=== PATIENT | female | born 1945 | race Caucasian/White ===

== ENCOUNTER 2020-05-02 07:43 | Outpatient (REF) | payer OTHER, SELFPAY ==
[2020-05-02 11:01] LABS: COVID-19 Test Negative (Negative); IDNOW Serial# 55D5AD1C
== END 2020-05-02 07:44 | disposition home or self-care (01) ==
LOC: HO.EMPCOV 07:43
PROVIDERS: PCP Family Medicine; Visit Provider Internal Medicine
DX: Z20.828 Contact with and (suspected) exposure to other viral communicable diseases (principal)
CPT/HCPCS: 87635; C9803

== ENCOUNTER 2020-09-18 07:42 | Outpatient (REF) | payer OTHER, SELFPAY ==
[2020-09-18 08:00] LABS: COVID-19 Test Negative (Negative)
== END 2020-09-18 07:43 | disposition home or self-care (01) ==
LOC: HO.EMPCOV 07:42
PROVIDERS: Visit Provider Internal Medicine
DX: Z20.822 Contact with and (suspected) exposure to COVID-19 (principal)
CPT/HCPCS: 36415; 87635; C9803

== ENCOUNTER 2020-10-23 09:46 | Outpatient (REF) | payer OTHER, SELFPAY ==
[2020-10-25 07:35] LABS: SARS COV2 IgG Negative (Negative)
== END 2020-10-23 09:47 | disposition home or self-care (01) ==
LOC: HO.LAB 09:46
PROVIDERS: PCP Family Medicine; Visit Provider Family Medicine
DX: Z01.84 Encounter for antibody response examination (principal); Z20.822 Contact with and (suspected) exposure to COVID-19
CPT/HCPCS: 36415; 86769

== ENCOUNTER 2020-12-15 08:33 | Outpatient (REF) | payer OTHER, SELFPAY ==
--- NOTE | ~2020-12-15 | MM_ITS ---
EXAMINATION: MM SCREENING DIGITAL BREAST TOMOSYNTHESIS, BILATERAL CLINICAL INFORMATION: Screening. Asymptomatic. The lifetime risk of breast cancer based on the Tyrer-Cuzick Model is 2%. COMPARISON: Mammography: 04/07/2017, 09/21/2014, 01/09/2012 TECHNIQUE: Digital breast tomosynthesis is performed in both the craniocaudal and mediolateral oblique views along with computer-aided detection (CAD). Synthesized 2D images are generated from the tomosynthesis. FINDINGS: There are scattered areas of fibroglandular density (ACR BI-RADS breast composition Category b). There are no significant masses, abnormal calcifications, or other abnormalities. There are scattered bilateral benign coarse rim calcifications. Parenchymal pattern is similar to prior studies. The axilla and skin contours are unremarkable. Mild bilateral nipple retraction is a chronic finding. MM/MM tomosynthesis screening BI IMPRESSION: No mammographic evidence of malignancy. ASSESSMENT: BI-RADS 2: Benign RECOMMENDATION: Routine annual mammography screening. This patient's information was entered into a reminder system with a target due date for their next mammogram.
== END 2020-12-15 08:34 | disposition home or self-care (01) ==
LOC: HO.MAMMO 08:33
PROVIDERS: Visit Provider Family Medicine
DX: Z12.31 Encounter for screening mammogram for malignant neoplasm of breast (principal)
CPT/HCPCS: 77063; 77067

== ENCOUNTER 2020-12-30 09:00 | Outpatient (REF) | payer OTHER, SELFPAY ==
[2020-12-30 10:15] LABS: Alanine Aminotransferase 11 U/L (0-31); Albumin Level 4.1 g/dL (3.5-5.0); Alkaline Phosphatase 85 U/L (39-117); Anion Gap 14 (12-20); Aspartate Amino Transferase 16 U/L (5-31); Bilirubin Total 0.4 mg/dL (0.0-1.0); Blood Urea Nitrogen 28 mg/dL (9-16); Calcium 9.6 mg/dL (8.4-10.2); Carbon Dioxide 30 mmol/L (22-29); Chloride 100 mmol/L (96-108); Cholesterol 260 mg/dL; Estimated Glomerular Filt Rate 39; Glucose Fasting 99 mg/dL (60-99); HDL Cholesterol 65 mg/dL; LDL Cholesterol Calculated 167 mg/dl; Potassium 3.9 mmol/L (3.3-5.1); Sodium 140 mmol/L (135-145); Triglycerides 144 mg/dL
[2020-12-30 10:37] LABS: TSH reflex Free T4 2.56 uIU/mL (0.32-4.0)
== END 2020-12-30 09:01 | disposition home or self-care (01) ==
LOC: HO.LAB 09:00
PROVIDERS: PCP Family Medicine; Visit Provider Family Medicine
DX: Z00.00 Encounter for general adult medical examination without abnormal findings (principal); I10 Essential (primary) hypertension
CPT/HCPCS: 36415; 80053; 80061; 84443

== ENCOUNTER 2021-01-01 13:01 | Outpatient (REF) | payer OTHER, SELFPAY ==
[2021-01-01 14:31] LABS: Creatinine Urine 44.58 mg/dL; Microalbum/Creatinine Ratio Ur 13.4 ug/mg cr
== END 2021-01-01 13:02 | disposition home or self-care (01) ==
LOC: HO.LNP 13:01
PROVIDERS: Visit Provider Family Medicine
DX: I10 Essential (primary) hypertension (principal)
CPT/HCPCS: 82043

== ENCOUNTER 2021-01-26 14:28 | Outpatient (REF) | payer OTHER, SELFPAY ==
--- NOTE | ~2021-01-26 | MM_ITS ---
EXAMINATION: BONE DENSITOMETRY CLINICAL INDICATION: Encounter for screening for osteoporosis. COMPARISON: Previous BD dated 03/17/2019 and baseline BD dated 11/25/2006. TECHNIQUE: Using a [employer] DXA System (software version: 13.1) manufactured by [employer], dual-energy x-ray absorptiometry was performed of the lumbar spine and left hip. The images are of good technical quality. Summary results are attached. FINDINGS: AP SPINE L1-L2 (excluding L3 and L4): The data of L1-L4 has been changed to exclude the L3 and L4 vertebral bodies, because degenerative changes at these levels may cause overestimation of lumbar spine density. Current: BMD 1.004 g/cm2, Z-score 0.7, T-score -1.3, osteopenia, 8.4% increase from previous, 1.3% decrease from baseline (<5% change is not significant). Prior: BMD 0.926 g/cm2. Baseline: BMD 1.017 g/cm2. LEFT FEMUR, NECK: Current: BMD 0.833 g/cm2, Z-score 0.7, T-score -1.5, osteopenia. Prior: BMD 0.850 g/cm2. Baseline: BMD 0.867 g/cm2. LEFT FEMUR, TOTAL: Current: BMD 0.930 g/cm2, Z-score 1.4, T-score -0.6, normal, 4.6% decrease from previous, 5.1% decrease from baseline (<5% change is not significant). Prior: BMD 0.975 g/cm2. Baseline: BMD 0.980 g/cm2. IDENTIFIED RISK FACTORS: Early menopause, secondary osteoporosis, history of fracture (adult). HISTORY OF FRACTURE: Elbow. MEDICATIONS: Vitamin D. MM/XR DEXA axial skeleton IMPRESSION: 1. DIAGNOSIS: Osteopenia based on the lowest T-score value of -1.5 in the femoral neck applying World Health Organization criteria. 2. 10-YEAR FRACTURE RISK PREDICTION, FRAX: Major osteoporotic fracture (clinical spine, forearm, hip or shoulder) 29.1%. Hip fracture 14.9%. 3. Treatment Recommendations: NOF guidelines recommend consideration for treatment in postmenopausal women and men age 50 and older presenting with the following: -A hip or vertebral (clinical or morphometric) fracture. -T-score less than or equal to -2.5 at the femoral neck or spine after appropriate evaluation to exclude secondary causes. -Low bone mass at the hip or spine and a 10-year fracture probability by FRAX of greater than or equal to 3% for hip fracture or greater than or equal to 20% for major osteoporotic fracture based on the [place] adapted WHO algorithm. 4. Other Recommendations: All treatment decisions require clinical judgment and consideration of individual patient factors, including patient preferences, comorbidities, previous drug use, risk factors not captured in the FRAX model (e.g. frailty, falls, vitamin D deficiency, increased bone turnover, interval significant decline in bone density) and possible under or overestimation of fracture risk by FRAX. Additional medical evaluation for secondary cause of low bone mineral density may be appropriate. FUTURE SCAN RECOMMENDATION: People with diagnosed cases of osteoporosis or at high risk for fracture should have regular bone mineral density tests. For patients eligible for Medicare, routine testing is allowed once every 2 years. The testing frequency can be increased to one year for patients who have rapidly progressing disease, those who are receiving or discontinuing medical therapy to restore bone mass, or have additional risk factors.
== END 2021-01-26 14:29 | disposition home or self-care (01) ==
LOC: HO.MAMMO 14:28
PROVIDERS: Visit Provider Family Medicine
DX: Z13.820 Encounter for screening for osteoporosis (principal); M85.80 Other specified disorders of bone density and structure, unspecified site; Z78.0 Asymptomatic menopausal state; Z87.81 Personal history of (healed) traumatic fracture; Z79.899 Other long term (current) drug therapy
CPT/HCPCS: 77080

== ENCOUNTER 2021-03-31 10:33 | Outpatient (REF) | payer OTHER, SELFPAY ==
[2021-03-31 12:10] LABS: Cholesterol 239 mg/dL; HDL Cholesterol 71 mg/dL; LDL Cholesterol Calculated 139 mg/dl; Triglycerides 148 mg/dL
[2021-03-31 12:30] LABS: Vitamin D 25-OH Total 62.7 ng/mL (>30)
== END 2021-03-31 10:34 | disposition home or self-care (01) ==
LOC: HO.LAB 10:33
PROVIDERS: PCP Family Medicine; Visit Provider Family Medicine
DX: Z00.00 Encounter for general adult medical examination without abnormal findings (principal); E78.5 Hyperlipidemia, unspecified; E55.9 Vitamin D deficiency, unspecified; M85.80 Other specified disorders of bone density and structure, unspecified site
CPT/HCPCS: 36415; 80061; 82306

== ENCOUNTER 2021-10-23 13:53 | Outpatient (REF) | payer OTHER, MEDICARE, SELFPAY ==
[2021-10-23 16:25] LABS: Cholesterol 251 mg/dL; HDL Cholesterol 56 mg/dL; LDL Cholesterol Calculated 159 mg/dl; Triglycerides 182 mg/dL
== END 2021-10-23 13:54 | disposition home or self-care (01) ==
LOC: HO.HMGCLDS 13:53
PROVIDERS: PCP Family Medicine; Visit Provider Family Medicine
DX: Z00.00 Encounter for general adult medical examination without abnormal findings (principal)
CPT/HCPCS: 36415; 80061

== ENCOUNTER 2022-03-19 11:15 | Outpatient (REF) | payer OTHER, MEDICARE, SELFPAY ==
[2022-03-19 14:15] LABS: MANUAL DIFF FLAG NO
[2022-03-19 14:19] LABS: Basophils Absolute Auto 0.1 X10*3/uL (0.0-0.2); Basophils Percent Auto 1.3 % (0-2); Eosinophils Absolute Auto 0.3 X10*3/uL (0.0-0.4); Hematocrit 39.7 % (37.0-47.0); Hemoglobin 13.4 g/dl (12.0-16.0); Imm Gran Abs Auto 0.03 X10*3/uL (0.00-0.03); Imm Gran Pct Auto 0.4 % (0.0-0.4); Lymphocytes Absolute Auto 2.8 X10*3/uL (1.2-4.9); Mean Corpuscular HGB Conc 33.8 g/dl (31.0-35.0); Mean Corpuscular Hemoglobin 30.5 pg (27.0-33.0); Mean Corpuscular Volume 90.4 fL (80.0-98.0); Mean Platelet Volume 9.9 fL (9.4-12.3); Monocytes Absolute Auto 0.7 X10*3/uL (0.1-1.2); Monocytes Percent Auto 9.7 % (2-11); Neutrophils Absolute Auto 2.9 x10*3/uL (2.0-8.3); Neutrophils Percent Auto 42.6 % (45-73); Platelet Count 341 X10*3/uL (160-400); Red Blood Count 4.39 X10*6/uL (4.20-5.50); Red Cell Distribution Width 12.7 % (11.0-16.0); White Blood Count 6.7 X10*3/uL (4.8-10.8)
[2022-03-19 14:30] LABS: Appearance Urine Clear; Color Urine Yellow; Glucose Urine UA Negative (Negative); Leukocyte Esterase Urine Large (3+) (Negative); Nitrite Urine Negative (Negative); Specific Gravity - Urine 1.015 (1.005-1.025); UMIC TRIGGER UA YES; Urine Blood Negative (Negative); Urine Ketones Negative (Negative); Urine Protein Negative (Neg-Trace)
[2022-03-19 14:33] LABS: Bacteria Urine None Seen (None Seen); Hyaline Casts Urine 0-2 /LPF (0-2); RBC Urine 0-2 /HPF (0-2)
[2022-03-19 14:50] LABS: Alanine Aminotransferase 9 U/L (0-31); Albumin Level 3.8 g/dL (3.5-5.0); Alkaline Phosphatase 82 U/L (39-117); Anion Gap 14 (12-20); Aspartate Amino Transferase 17 U/L (5-31); Bilirubin Total 0.6 mg/dL (0.0-1.0); Blood Urea Nitrogen 18 mg/dL (9-16); Calcium 9.3 mg/dL (8.4-10.2); Carbon Dioxide 29 mmol/L (22-29); Chloride 104 mmol/L (96-108); Estimated Glomerular Filt Rate 49; Glucose Fasting 88 mg/dL (60-99); Potassium 3.9 mmol/L (3.3-5.1); Sodium 143 mmol/L (135-145); Total Protein 6.6 g/dL (6.5-8.0)
[2022-03-19 14:53] LABS: TSH reflex Free T4 1.78 uIU/mL (0.32-4.0)
== END 2022-03-19 11:16 | disposition home or self-care (01) ==
LOC: HO.HMGCLDS 11:15
PROVIDERS: PCP Family Medicine; Visit Provider Family Medicine
DX: Z00.00 Encounter for general adult medical examination without abnormal findings (principal)
CPT/HCPCS: 36415; 80053; 81001; 84443; 85025

== ENCOUNTER 2022-04-01 12:27 | Outpatient (REF) | payer OTHER, MEDICARE, SELFPAY | END 2022-04-01 12:28 | disposition home or self-care (01) | LOC: HO.LNP 12:27 | PROVIDERS: Visit Provider Physician Assistant | DX: A04.8 Other specified bacterial intestinal infections (principal) | CPT/HCPCS: 87338 ==

== ENCOUNTER 2022-05-15 16:25 | Outpatient (REF) | payer OTHER, MEDICARE, SELFPAY ==
[2022-05-15 17:34] LABS: Cholesterol 256 mg/dL; HDL Cholesterol 69 mg/dL; LDL Cholesterol Calculated 164 mg/dl; Triglycerides 115 mg/dL
[2022-05-15 17:57] LABS: Appearance Urine Clear; Color Urine Yellow; Glucose Urine UA Negative (Negative); Leukocyte Esterase Urine Large (3+) (Negative); Nitrite Urine Negative (Negative); PH 5.5 (5.0-9.0); Specific Gravity - Urine 1.015 (1.005-1.025); UMIC TRIGGER UA YES; Urine Blood Negative (Negative); Urine Ketones Negative (Negative); Urine Protein Negative (Neg-Trace)
[2022-05-15 18:05] LABS: Bacteria Urine None Seen (None Seen); Hyaline Casts Urine 0-2 /LPF (0-2); RBC Urine 0-2 /HPF (0-2); WBC Urine 21-50 /HPF (0-5)
== END 2022-05-15 16:26 | disposition home or self-care (01) ==
LOC: HO.LAB 16:25
PROVIDERS: Visit Provider Family Medicine
DX: Z00.00 Encounter for general adult medical examination without abnormal findings (principal); E78.5 Hyperlipidemia, unspecified
CPT/HCPCS: 36415; 80061; 81001

== ENCOUNTER 2022-05-21 12:38 | Outpatient (REF) | payer OTHER, MEDICARE, SELFPAY ==
[2022-05-21 15:17] LABS: Free T4 (Free Thyroxine) 1.23 ng/dL (0.71-1.85); Thyroid Stimulating Hormone 1.66 uIU/mL (0.32-4.0)
[2022-05-22 21:58] LABS: Triiodothyronine T3 Total 100 ng/dL (76-181)
== END 2022-05-21 12:39 | disposition home or self-care (01) ==
LOC: HO.WFDLDS 12:38
PROVIDERS: Visit Provider Family Medicine
DX: E04.9 Nontoxic goiter, unspecified (principal)
CPT/HCPCS: 36415; 84439; 84443; 84480

== ENCOUNTER 2022-06-05 11:28 | Outpatient (REF) | payer OTHER, MEDICARE, SELFPAY ==
--- NOTE | ~2022-06-05 | US_ITS ---
EXAMINATION: US THYROID CLINICAL INFORMATION: Nontoxic goiter, unspecified. COMPARISON: None TECHNIQUE: Linear transducer grayscale and color Doppler examination with attention to the region of the thyroid. FINDINGS: SIZE: Measurements of the thyroid lobes and nodules are given in sagittal, anteroposterior and transverse dimensions respectively. Right Thyroid Lobe: 4.5 x 1.6 x 1.2 cm, volume 4.3 mL. Parenchyma: The gland echotexture is homogeneous. Thyroid vascularity is normal. Left Thyroid Lobe: 6.3 x 3.5 x 4.1 cm, volume 47.0 mL. Parenchyma: The gland echotexture is homogeneous. Thyroid vascularity is increased. Isthmus: 0.3 cm in maximum AP dimension. Estimated total number of nodules greater than or equal to 1 cm: 1. Gasket Inspector nodules are described as follows: 1. Location: Right lower pole. Size: 0.9 x 0.6 x 0.7 cm, volume 0.20 mL. Nodule characteristics: Composition: Spongiform (0). ACR TI-RADS total points: 0 ACR TI-RADS category: 1 2. Location: Right lower pole. Size: 0.5 x 0.3 x 0.4 cm, volume 0.03 mL. Nodule characteristics: Composition: Cystic(0). ACR TI-RADS total points: 0 ACR TI-RADS category: 1 3. Location: Right mid pole. Size: 0.6 x 0.5 x 0.5 cm, volume 0.08 mL. Nodule characteristics: Composition: Spongiform (0). ACR TI-RADS total points: 0 ACR TI-RADS category: 1 4. Location: Left mid/lower pole. Size: 5.4 x 3.0 x 4.1 cm, volume 35.0 mL. Nodule characteristics: Composition: Solid/almost completely solid (2). Echogenicity: Hyperechoic (1). Shape: Not taller than wide (0). Margins: Smooth (0). Echogenic Foci: None (0). While there are regions of hyperechogenicity there are no definite punctate echogenic foci. ACR TI-RADS total points: 3 ACR TI-RADS category: 3 NODES: No lymphadenopathy is seen in the tissue surrounding the thyroid gland. US/US thyroid IMPRESSION: A 5.4 cm TR 3 left thyroid nodule meets criteria for tissue sampling. Remainder of thyroid nodules do not meet criteria for follow-up. ACR TI-RADS RECOMMENDATION REFERENCE: Ultrasound-guided fine-needle aspiration, followup ultrasound, no further follow up. * TR1 (0 point) and TR 2 (2 points): No FNA or follow up. * TR3 (3 points): FNA if more than or equal to 2.5 cm in maximum dimension, followup ultrasound in 1, 3 and 5 years if 1.5 to 2.4 cm in maximum dimension. * TR4 (4-6 points): FNA if more than or equal to 1.5 cm in maximum dimension, followup ultrasound in 1, 2, 3 and 5 years if 1 to 1.4 cm in maximum dimension. * TR5 (more than or equal to 7 points): FNA if more than or equal to 1 cm in maximum dimension, followup ultrasound every year for 5 years if 0.5 to 0.9 cm in maximum dimension. * TR3, TR4 or TR5 nodules that are below the size threshold for followup receive no follow up.
== END 2022-06-05 11:29 | disposition home or self-care (01) ==
LOC: HO.HMGCX 11:28
PROVIDERS: PCP Family Medicine; Visit Provider Family Medicine
DX: E04.9 Nontoxic goiter, unspecified (principal)
CPT/HCPCS: 76536

== ENCOUNTER → 2022-06-12 09:55 | Outpatient (BNVA) | payer OTHER, MEDICARE, SELFPAY | PROVIDERS: PCP Family Medicine; Visit Provider Internal Medicine | DX: Z13.89 Encounter for screening for other disorder (principal) ==

== ENCOUNTER 2022-06-25 12:41 | Outpatient (REF) | payer OTHER, MEDICARE, SELFPAY ==
--- NOTE | ~2022-06-25 | CT_ITS ---
EXAMINATION: CT SOFT TISSUE NECK WITHOUT CONTRAST CLINICAL INFORMATION: 77-year-old with nontoxic multinodular goiter. COMPARISON: 06/05/2022 thyroid ultrasound. TECHNIQUE: Volumetric CT imaging was performed in the axial plane with generation of coronal and sagittal reformatted images. This CT examination was performed using dose optimization techniques as appropriate, variously including the following: *Automated exposure control *Adjustment of mA and/or kV according to patient size (this includes techniques or standardized protocols for targeted exams where dose is matched to indication/reason for exam; i.e. extremities or head) *Use of iterative reconstruction technique DLP: 302 mGy-cm FINDINGS: Skull Base: Grossly intact. 1.6 cm probable retention cysts with dystrophic calcification along the floor of the left maxillary sinus. Limited assessment of the included intracranial structures. No acute process. Visualized intraorbital soft tissues are within normal limits. Suprahyoid Neck: Nasopharynx, retropharynx, bar helper and parapharyngeal spaces appear grossly within normal limits. The major salivary glands are normal in morphology and attenuation. The oropharynx is smoothly contoured. There is a small calcified tonsillolith in the right palatine tonsil. The visualized oral tongue, base of the tongue and floor of the mouth structures appear symmetric. Lingual tonsils appear grossly unremarkable with a normal appearance to the epiglottis within the limitations of the study. No lymphadenopathy identified. Multiple scattered, normal-sized bilateral IJ chain and subarticular space lymph nodes are seen. Infrahyoid Neck: The hypopharynx and larynx appear grossly within normal limits. There is asymmetric enlargement of the left thyroid lobe with a heterogeneous appearance to the right thyroid lobe. Findings are consistent with the previously noted 5.4 cm left thyroid lobe nodule, with caudal extension into the superior mediastinum, with deviation of the trachea to the right without tracheal narrowing. This encroaches on the left tracheoesophageal groove. A few small, scattered, normal-sized bilateral IJ chain lymph nodes and level Vb lymph nodes are seen bilaterally. Small, normal-sized level Va lymph node on the left. Upper Chest: Visualized lung parenchyma is within normal limits. The visualized mediastinum is otherwise within normal limits. Skeletal: Multilevel cervical DDD and spondylosis is noted. Possible tiny bone island in the T3 vertebral body. Mild upper thoracic levocurvature noted. Other Comments: None. CT/CT soft tissue neck wo IV con IMPRESSION: 1. Large left thyroid lobe nodule with caudal extension into the superior mediastinum with deviation of the trachea to the right and encroachment on the left tracheoesophageal groove without tracheal narrowing. 2. No cervical lymphadenopathy identified within the limitations of a noncontrast exam. 3. Probable retention cyst with dystrophic calcification along the floor of the left maxillary sinus. 4. Cervical degenerative changes. 5. Small calcified tonsillolith in the right palatine tonsil. 6. Tiny sclerotic focus in the T3 vertebral body. Statistically, this is most likely a small bone island. If there is any clinical concern for malignancy, then radionuclide skeletal scintigraphy correlation would be recommended.
== END 2022-06-25 12:42 | disposition home or self-care (01) ==
LOC: HO.CT 12:41
PROVIDERS: PCP Family Medicine; Visit Provider Internal Medicine
DX: E04.2 Nontoxic multinodular goiter (principal)
CPT/HCPCS: 70490

== ENCOUNTER 2022-09-19 08:45 | Outpatient (REF) | payer OTHER, MEDICARE, SELFPAY ==
--- NOTE | 2022-09-19 09:20 | P.BOP_ITS ---
Brief Operative Note Date of Service: 09/19/22 Pre-op diagnosis: Multinodular Thyroid Procedure: This is doctor Lucretia Jeronimo. This is an ultrasound-guided fine-needle aspiration report. Indication: Multinodular Thyroid Porcedure: Procedure was explained to the patient. Alternatives, the risk and benefits were discussed. Written consent was obtained. A time-out was also obtained. After sterile preparation, 1 ml of 1% lidocaine solution was applied subcutaneously for anesthetic effect. Then Fine-needle aspiration of a left mid pole 5.4 cm thyroid nodule was performed using direct ultrasound guidance to confirm accurate needle placement. Three aspirations were made using 27 gauge needles. Samples were submitted for cytology. One pass was dedicated for [employer] Gene sequencing a p mechanic testing. The patient tolerated the procedure well. Aftercare instructions were provided. Impression: Uncomplicated fine needle aspiration biopsy of a left mid pole 5.4 cm thyroid nodule under ultrasound guidance. Surgeon: Lucretia Jeronimo, DO Was an Temperature Regulator Pyrometer used for this Procedure?: No Estimated blood loss (mL): 0
[2022-09-19] MEDS: Lidocaine HCl 1 % MPF 5 ML VIAL SUBCUT (09:55)
== END 2022-09-19 08:46 | disposition home or self-care (01) ==
LOC: HO.US 08:45
PROVIDERS: PCP Family Medicine; Visit Provider Internal Medicine
DX: E04.2 Nontoxic multinodular goiter (principal)
CPT/HCPCS: 10005; 88172; 88173; 88177; 88305

== ENCOUNTER → 2022-10-03 12:59 | Outpatient (BNVA) | payer OTHER, MEDICARE, SELFPAY | PROVIDERS: PCP Family Medicine; Visit Provider Internal Medicine ==

== ENCOUNTER 2022-10-15 06:08 | Outpatient (REF) | payer OTHER, MEDICARE, SELFPAY ==
[2022-10-15 08:54] LABS: Free T4 (Free Thyroxine) 1.26 ng/dL (0.71-1.85); Thyroid Stimulating Hormone 2.08 uIU/mL (0.32-4.0)
[2022-10-15 09:17] LABS: Appearance Urine Cloudy; Color Urine Yellow; Glucose Urine UA Negative (Negative); Leukocyte Esterase Urine Large (3+) (Negative); Nitrite Urine Negative (Negative); UMIC TRIGGER UA YES; Urine Blood Negative (Negative); Urine Ketones Negative (Negative); Urine Protein Negative (Neg-Trace)
[2022-10-15 09:22] LABS: Bacteria Urine None Seen (None Seen); RBC Urine 0-2 /HPF (0-2); WBC Urine >50 /HPF (0-5)
== END 2022-10-15 06:09 | disposition home or self-care (01) ==
LOC: HO.LAB 06:08
PROVIDERS: Internal Medicine; PCP Family Medicine; Visit Provider Family Medicine
DX: E04.2 Nontoxic multinodular goiter (principal)
CPT/HCPCS: 36415; 81001; 84439; 84443

== ENCOUNTER 2022-12-28 07:20 | Outpatient (REF) | payer OTHER, MEDICARE, SELFPAY ==
[2022-12-28 09:03] LABS: Appearance Urine Clear; Color Urine Yellow; Glucose Urine UA Negative (Negative); Leukocyte Esterase Urine Large (3+) (Negative); Nitrite Urine Negative (Negative); PH 5.5 (5.0-9.0); UMIC TRIGGER UA YES; Urine Blood Negative (Negative); Urine Ketones Negative (Negative); Urine Protein Negative (Neg-Trace)
[2022-12-28 09:06] LABS: Alanine Aminotransferase 11 U/L (0-31); Albumin Level 4.3 g/dL (3.5-5.0); Alkaline Phosphatase 64 U/L (39-117); Anion Gap 16 (12-20); Aspartate Amino Transferase 17 U/L (5-31); Bilirubin Total 0.4 mg/dL (0.0-1.0); Blood Urea Nitrogen 46 mg/dL (9-16); Calcium 10.1 mg/dL (8.4-10.2); Carbon Dioxide 28 mmol/L (22-29); Chloride 95 mmol/L (96-108); Cholesterol 264 mg/dL; Estimated Glomerular Filt Rate 24; Glucose Fasting 103 mg/dL (60-99); HDL Cholesterol 62 mg/dL; LDL Cholesterol Calculated 169 mg/dl; Potassium 3.9 mmol/L (3.3-5.1); Sodium 135 mmol/L (135-145); Total Protein 7.5 g/dL (6.5-8.0); Triglycerides 167 mg/dL
[2022-12-28 09:09] LABS: Bacteria Urine None Seen (None Seen); RBC Urine 0-2 /HPF (0-2); WBC Urine 21-50 /HPF (0-5)
== END 2022-12-28 07:21 | disposition home or self-care (01) ==
LOC: HO.LAB 07:20
PROVIDERS: PCP Family Medicine; Visit Provider Family Medicine
DX: Z00.00 Encounter for general adult medical examination without abnormal findings (principal); E78.5 Hyperlipidemia, unspecified
CPT/HCPCS: 36415; 80053; 80061; 81001; 81003

== ENCOUNTER 2023-01-01 14:18 | Outpatient (AMB) | payer OTHER, MEDICARE, SELFPAY ==
--- NOTE | 2023-01-01 14:21 | MHC.PC.OV ---
Vital Signs 01/01/23 14:22 Height 5 ft 1 in Weight 107 lb BMI 20.2 BP 110/66 Blood Pressure Location Lt brachial Position Sitting Pulse 62 Pulse Source Pulse Oximeter Pulse Oximetry (%) 99 Oxygen Delivery Method Room Air Intake Visit Reasons: f/u hypertension,fmla paperwork Intake Note: Patient is here for follow up on hypertension and FMLA paperwork. Allergies Sulfa (Sulfonamide Antibiotics) Allergy (Unknown, Verified 01/01/23 14:25) Unknown sulfamethoxazole [From Bactrim] Allergy (Unknown, Verified 01/01/23 14:25) Unknown trimethoprim [From Bactrim] Allergy (Unknown, Verified 01/01/23 14:25) Unknown Tobacco use date assessed: 01/01/23 Fall risk assessment: No Falls in past year Last assessed Fall Risk: 01/01/23 Dental Screening Dental Screen Date: 01/01/23 Did you have a dental visit in the last 12 months?: Yes Did you have a dental problem in the last 6 months where you did not have access to dental care?: No Was dental information given to patient?: Patient has dentist HPI f/u hypertension,fmla paperwork HPI Details 77 y/o female presents to f/u hypertension and FMLA paperwork. Blood pressure today is 110/66. She is on valsartan-HCTZ 320-25mg daily. Pt has multinodular thyroid and is followed by endocrine. She reports she had been having difficulties with her stools but reports this has improved. [facility] Medical History Multinodular thyroid Surgical History History of surgery History of wisdom tooth extraction Family History Father Heart failure Mother Heart failure Brother No problems noted. Brother No problems noted. Sister No problems noted. Sister No problems noted. Son No problems noted. Son No problems noted. Son No problems noted. Son No problems noted. 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 Lalo Casey, Christina Brown, Dony Cobb and colleagues, with an educational viral from [employer]. Review of Systems Const Denies chills, Denies fatigue, Denies fever(s), Denies headache(s) and Denies weakness ENT Denies dizziness and Denies headache(s) Card Denies dyspnea Resp Denies cough, Denies dyspnea, Denies wheezing and Denies other (shortness of breath) Musc Denies numbness and Denies tingling Neuro Denies dizziness, Denies headache(s), Denies numbness, Denies tingling and Denies weakness Psych Denies anxiety and Denies depression Endo Denies fatigue Aller/Immun Denies wheezing Physical exam (Primary Care) Vital Signs: Last Vital Signs Pulse 62 01/01/23 14:22 BP 110/66 01/01/23 14:22 Pulse Ox 99 01/01/23 14:22 Oxygen Delivery Method Room Air 01/01/23 14:22 BMI result Body Mass Index 20.2 Tobacco/Smoking Status: Tobacco use Status Tobacco use date assessed 01/01/23 01/01/23 14:28 Patient Tobacco Use Status Never used Tobacco 01/01/23 14:28 e-Cigarette/Vaping Use Never Used 01/01/23 14:28 Thrive Assessment: Date of Thrive Assessment Date Thrive assessed 01/03/21 01/01/23 14:28 Const General: well developed; No acute distress Nutritional Appearance: well nourished Orientation/consciousness: patient oriented x3 HENMT Head: Yes normocephalic and Yes atraumatic Eyes General: appearance normal, both eyes and all related structures Pupils: Equal, round and reactive pupils present EOM: EOMs intact bilaterally Resp Effort & Inspection: normal respiratory effort Neuro General: patient oriented x3 and gait normal Cranial nerves: Yes Equal, round and reactive pupils present Psych Affect: normal affect Assessment and Plan Assessment & Plan (1) Essential hypertension: Code(s): I10 - Essential (primary) hypertension (2) Multinodular thyroid: Code(s): E04.2 - Nontoxic multinodular goiter Plan: Patient with multinodular thyroid and followed by endocrine. This is causing some anxiety and also GI manifestations of stool incontinence. This is also complicated by pelvic floor dysfunction Will give her LA time off from now until she sees the surgeon to be evaluated for definitive care of multinodular thyroid (3) Stool incontinence: Code(s): R15.9 - Full incontinence of feces Plan: Improved with a soluble fiber and probiotic She will continue these Will also refer her to GI (4) Pelvic floor dysfunction: Code(s): M62.89 - Other specified disorders of muscle Plan: As above, refer to GI for complicated by some pelvic floor dysfunction Plan [facility] paperwork filled out for patient from today through February 01. Orders: Referrals Gastroenterology Referral M62.89 - Other specified disorders of muscle, R15.9 - Full incontinence of feces Coding Level of Care Code Est Pt Level 4 (29278) Diagnoses Essential hypertension I10 Multinodular thyroid E04.2 Stool incontinence R15.9 Pelvic floor dysfunction M62.89
[2023-01-01 14:22] VITALS: BP 110/66; PULSE 62; O2SAT 99; BMI 20.2
== END 2023-01-01 15:24 | disposition home or self-care (01) ==
PROVIDERS: PCP Family Medicine; Visit Provider Family Medicine
DX: I10 Essential (primary) hypertension (principal); E04.2 Nontoxic multinodular goiter; R15.9 Full incontinence of feces; M62.89 Other specified disorders of muscle
CPT/HCPCS: 99214

== ENCOUNTER 2023-01-14 10:48 | Outpatient (REF) | payer OTHER, MEDICARE, SELFPAY ==
[2023-01-14 12:25] LABS: Alanine Aminotransferase 8 U/L (0-31); Albumin Level 4.1 g/dL (3.5-5.0); Alkaline Phosphatase 70 U/L (39-117); Anion Gap 14 (12-20); Aspartate Amino Transferase 18 U/L (5-31); Bilirubin Total 0.4 mg/dL (0.0-1.0); Blood Urea Nitrogen 40 mg/dL (9-16); Calcium 9.9 mg/dL (8.4-10.2); Carbon Dioxide 30 mmol/L (22-29); Chloride 97 mmol/L (96-108); Estimated Glomerular Filt Rate 22; Glucose Random 108 mg/dL (60-115); Potassium 3.6 mmol/L (3.3-5.1); Sodium 137 mmol/L (135-145); Total Protein 7.3 g/dL (6.5-8.0)
== END 2023-01-14 10:49 | disposition home or self-care (01) ==
LOC: HO.LAB 10:48
PROVIDERS: PCP Family Medicine; Visit Provider Family Medicine
DX: I10 Essential (primary) hypertension (principal)
CPT/HCPCS: 36415; 80053

== ENCOUNTER 2023-01-23 11:33 | Outpatient (AMB) | payer OTHER, MEDICARE, SELFPAY ==
[2023-01-23 11:40] VITALS: BP 112/70; PULSE 60; O2SAT 99; BMI 20.6
--- NOTE | 2023-01-23 11:40 | A.OFFPC_ITS ---
Vital Signs 01/23/23 11:40 Height 5 ft 1 in Weight 109 lb BMI 20.6 BP 112/70 Blood Pressure Location Lt brachial Position Sitting Pulse 60 Pulse Source Pulse Oximeter Pulse Oximetry (%) 99 Oxygen Delivery Method Room Air Intake Visit Reasons: Discuss Return To Work Intake Note: Patient is here to discuss going back to work, since she is feeling better. Allergies Sulfa (Sulfonamide Antibiotics) Allergy (Unknown, Verified 01/23/23 11:43) Unknown sulfamethoxazole [From Bactrim] Allergy (Unknown, Verified 01/23/23 11:43) Unknown trimethoprim [From Bactrim] Allergy (Unknown, Verified 01/23/23 11:43) Unknown Tobacco use date assessed: 01/23/23 Fall risk assessment: No Falls in past year Last assessed Fall Risk: 01/23/23 Dental Screening Dental Screen Date: 01/23/23 Did you have a dental visit in the last 12 months?: Yes Did you have a dental problem in the last 6 months where you did not have access to dental care?: No Was dental information given to patient?: Patient has dentist HPI Discuss Return To Work HPI Details 77 y/o female presents today to discuss return to work. Blood pressure today 112/70. She is on amlodipine 10mg, propranolol 160mg and valsartan-HCTZ 160-12.5mg daily. COUNTS INCLUDE 234 BEDS AT [facility] Medical History Multinodular thyroid Surgical History History of surgery History of wisdom tooth extraction Family History Father Heart failure Mother Heart failure Brother No problems noted. Brother No problems noted. Sister No problems noted. Sister No problems noted. Son No problems noted. Son No problems noted. Son No problems noted. Son No problems noted. 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 Lalo Casey, Christina Brown, Dony Cobb and colleagues, with an educational viral from [employer]. Review of Systems Const Denies chills, Denies fatigue, Denies fever(s), Denies headache(s) and Denies weakness ENT Denies dizziness and Denies headache(s) Card Denies chest pain, Denies lightheadedness, Denies dyspnea and Denies other (Palpitations) Resp Denies cough, Denies dyspnea, Denies wheezing and Denies other ( shortness of breath) Musc Denies numbness and Denies tingling Neuro Denies dizziness, Denies headache(s), Denies numbness, Denies tingling, Denies paresthesias and Denies weakness Psych Denies anxiety and Denies depression Endo Denies fatigue Aller/Immun Denies wheezing Physical exam (Primary Care) Vital Signs: Last Vital Signs Pulse 60 01/23/23 11:40 BP 112/70 01/23/23 11:40 Pulse Ox 99 01/23/23 11:40 Oxygen Delivery Method Room Air 01/23/23 11:40 BMI result Body Mass Index 20.6 Tobacco/Smoking Status: Tobacco use Status Tobacco use date assessed 01/23/23 01/23/23 11:46 Patient Tobacco Use Status Never used Tobacco 01/23/23 11:46 e-Cigarette/Vaping Use Never Used 01/23/23 11:46 Thrive Assessment: Date of Thrive Assessment Date Thrive assessed 01/03/21 01/23/23 11:46 Const General: no acute distress and well developed Nutritional Appearance: well nourished Orientation/consciousness: patient oriented x3 HENMT Head: Yes normocephalic and Yes atraumatic Eyes General: appearance normal, both eyes and all related structures Pupils: Equal, round and reactive pupils present EOM: EOMs intact bilaterally Resp Effort & Inspection: normal respiratory effort Auscultation: clear to auscultation bilaterally Cardio Rate: regular rate Rhythm: regular rhythm Heart sounds: S1 normal heart sound present, S2 normal heart sound present, no gallops, no murmurs and no rubs Neuro General: patient oriented x3 and gait normal Cranial nerves: Yes Equal, round and reactive pupils present Psych Affect: normal affect Assessment and Plan Assessment & Plan (1) Renal insufficiency: Code(s): N28.9 - Disorder of kidney and ureter, unspecified Plan: Significant rise in creatinine level and probably some acute Kidney injury. I decreased her valsartan hydrochlorothiazide and added amlodipine To compensate blood pressure control. She is feeling well. Blood pressure is well controlled and she will get her labs drawn next week. (2) Multinodular thyroid: Code(s): E04.2 - Nontoxic multinodular goiter Plan: She has an appointment with the surgeon on January 31. He will remain out of work until after this appointment and will return to work on February 05. Note for patient to return (3) Essential hypertension: Code(s): I10 - Essential (primary) hypertension Plan: Had decreased valsartan-hydrochlorothiazide due to rising creatinine level Added amlodipine Blood pressure remains well controlled Patient feels well Coding Level of Care Code Est Pt Level 3 (84851) Diagnoses Renal insufficiency N28.9 Multinodular thyroid E04.2 Essential hypertension I10
== END 2023-01-23 12:17 | disposition home or self-care (01) ==
PROVIDERS: PCP Family Medicine; Visit Provider Family Medicine
DX: N28.9 Disorder of kidney and ureter, unspecified (principal); E04.2 Nontoxic multinodular goiter; I10 Essential (primary) hypertension
CPT/HCPCS: 99213

== ENCOUNTER 2023-01-27 09:31 | Outpatient (REF) | payer OTHER, MEDICARE, SELFPAY ==
[2023-01-27 12:28] LABS: Alanine Aminotransferase 9 U/L (0-31); Albumin Level 3.7 g/dL (3.5-5.0); Alkaline Phosphatase 62 U/L (39-117); Anion Gap 10 (12-20); Aspartate Amino Transferase 16 U/L (5-31); Bilirubin Total 0.3 mg/dL (0.0-1.0); Blood Urea Nitrogen 18 mg/dL (9-16); Calcium 9.3 mg/dL (8.4-10.2); Carbon Dioxide 27 mmol/L (22-29); Chloride 109 mmol/L (96-108); Estimated Glomerular Filt Rate 40; Glucose Random 90 mg/dL (60-115); Potassium 3.6 mmol/L (3.3-5.1); Sodium 142 mmol/L (135-145); Total Protein 6.6 g/dL (6.5-8.0)
== END 2023-01-27 09:32 | disposition home or self-care (01) ==
LOC: HO.HMGCLDS 09:31
PROVIDERS: PCP Family Medicine; Visit Provider Family Medicine
DX: N28.9 Disorder of kidney and ureter, unspecified (principal)
CPT/HCPCS: 36415; 80053

== ENCOUNTER 2023-02-03 14:52 | Outpatient (AMB) | payer OTHER, MEDICARE, SELFPAY ==
--- NOTE | 2023-02-03 14:47 | A.OFFPC_ITS ---
Intake Visit Reasons: TH-f/u labs Intake Note: Patient is following up on labs today. Allergies Sulfa (Sulfonamide Antibiotics) Allergy (Unknown, Verified 02/03/23 14:49) Unknown sulfamethoxazole [From Bactrim] Allergy (Unknown, Verified 02/03/23 14:49) Unknown trimethoprim [From Bactrim] Allergy (Unknown, Verified 02/03/23 14:49) Unknown Tobacco use date assessed: 02/03/23 Fall risk assessment: No Falls in past year Last assessed Fall Risk: 02/03/23 Dental Screening Dental Screen Date: 02/03/23 Did you have a dental visit in the last 12 months?: Yes Did you have a dental problem in the last 6 months where you did not have access to dental care?: No Was dental information given to patient?: Patient has dentist HPI -f/u labs HPI Details 77 y/o female presents to f/u labs via [employer]. Labs were drawn 01/27/23. Reviewed labs with pt. Creatinine level improved from 2.19 to 1.29. She reports she has not been taking her furosemide and LE edema has worsened. [facility] Medical History Multinodular thyroid Surgical History History of surgery History of wisdom tooth extraction Family History Father Heart failure Mother Heart failure Brother No problems noted. Brother No problems noted. Sister No problems noted. Sister No problems noted. Son No problems noted. Son No problems noted. Son No problems noted. Son No problems noted. 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 Lalo Casey, Christina Brown, Dony Cobb and colleagues, with an educational viral from [employer]. Physical exam (Primary Care) Tobacco/Smoking Status: Tobacco use Status Tobacco use date assessed 02/03/23 02/03/23 14:51 Patient Tobacco Use Status Never used Tobacco 02/03/23 14:51 e-Cigarette/Vaping Use Never Used 02/03/23 14:51 Thrive Assessment: Date of Thrive Assessment Date Thrive assessed 01/03/21 02/03/23 14:51 Telehealth Telehealth Location of provider rendering services: practice address Location of patient: address on file Patient Identification confirmed using: Name, : Yes Telehealth method: voice only Patient verbally consented to treatment: Yes Patient verbally consented to billing insurance company: Yes Patient informed of any privacy concerns related to visit: Yes Minutes spent on Phone/Video with Pt.: 6 Assessment and Plan Assessment & Plan (1) Renal insufficiency: Code(s): N28.9 - Disorder of kidney and ureter, unspecified Plan: Creatinine level much improved Following her kidney function. She has not been taking furosemide any longer and her lower extremity edema has worsened. Will add back some furosemide and recheck her renal function prior to her next visit Will also follow-up on her blood pressure at that time. (2) Multinodular thyroid: Code(s): E04.2 - Nontoxic multinodular goiter Plan: Dr. Samuel recommends left thyroid lobectomy She plans to get this scheduled about 3 months from now. (3) Swelling of lower extremity: Code(s): M79.89 - Other specified soft tissue disorders Plan: As above, increasing lower extremity edema Adding back furosemide at half her prior dose. Orders: Orders Basic Metabolic Panel Today N28.9 - Disorder of kidney and ureter, unspecified, Z00.00 - Encounter for general adult medical examination without abnormal findings Medications: Changed From furosemide 20 mg PO DAILY 90 tabs 0RF To furosemide 10 mg (1/2 x 20 mg) PO DAILY 30 days 15 tabs 1RF Coding Level of Care Code Tele Est Pt Level 2 (00578) Diagnoses Renal insufficiency N28.9 Multinodular thyroid E04.2 Swelling of lower extremity M79.89
== END 2023-02-03 15:00 | disposition home or self-care (01) ==
LOC: HO.HMGFM 14:52
PROVIDERS: PCP Family Medicine; Visit Provider Family Medicine
DX: N28.9 Disorder of kidney and ureter, unspecified (principal); E04.2 Nontoxic multinodular goiter; M79.89 Other specified soft tissue disorders
CPT/HCPCS: 99212

== ENCOUNTER 2023-03-04 08:25 | Outpatient (AMB) | payer OTHER, MEDICARE, SELFPAY ==
--- NOTE | 2023-03-04 08:30 | A.OFFVIS_ITS ---
Intake Vital Signs 03/04/23 08:33 Height 5 ft 1 in Weight 110 lb BMI 20.8 BP 116/57 L Blood Pressure Location Lt brachial Position Sitting Pulse 65 Intake Visit Reasons: full incontinence of feces Intake Note: Patient follow up for full incontinence of feces. Patient cc: between diarrhea and constipation, denies any other GI issues. Nursing Director Required: No Accompanied by: Self / Same As Patient Allergies Sulfa (Sulfonamide Antibiotics) Allergy (Unknown, Verified 03/04/23 08:29) Unknown sulfamethoxazole [From Bactrim] Allergy (Unknown, Verified 03/04/23 08:29) Unknown trimethoprim [From Bactrim] Allergy (Unknown, Verified 03/04/23 08:29) Unknown Medication List - Last Reconciled 03/04/23 by Carol Montejo PA-C amlodipine 10 mg PO DAILY 30 days cholecalciferol (vitamin D3) 1,250 mcg PO QWEEK 30 days furosemide 10 mg (1/2 x 20 mg) PO DAILY 30 days propranolol ER 160 mg PO DAILY 90 days valsartan-hydrochlorothiazide 160-12.5 mg 1 tab PO DAILY 30 days HPI HPI Comments History of Present Illness Details A 78 y/o female with fecal incon- for the past several months- she is unaware when she has to go- urgency. Sx have much improved in the past month- she is now eating a small portion of applesauce - with significant improvement- Appetite is good She continues to work to part-time, here at [facility] [employer] [place]- 03/2022- negative- She says she has is scheduled for thyroidectomy for after holidays. In no other GI concerns no general concerns No abdominal pain, nausea, vomiting, hematemesis, hematochezia fever chills [facility] Medical History Multinodular thyroid Surgical History History of surgery History of wisdom tooth extraction Family History Father Heart failure Mother Heart failure Brother No problems noted. Brother No problems noted. Sister No problems noted. Sister No problems noted. Son No problems noted. Son No problems noted. Son No problems noted. Son No problems noted. 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 Current occupational exposures/hazards: No Cognitive needs: No Hearing needs: No Vision needs: No Review of Systems Const Details: All other systems reviewed are negative Physical Exam Vital Signs: Last Vital Signs Pulse 65 03/04/23 08:33 BP 116/57 L 03/04/23 08:33 BMI result Body Mass Index 20.8 Const General: healthy appearing, comfortable and no acute distress Orientation/consciousness: patient oriented x3 Limitations: no limitations Eyes Sclerae: sclerae normal Resp Effort & Inspection: normal respiratory effort and able to speak in complete sen tences Auscultation: clear to auscultation bilaterally, no rales, no rhonchi and no wheezes Cardio Rate: regular rate Rhythm: regular rhythm Heart sounds: S1 normal heart sound present and S2 normal heart sound present GI Palpation (GI): Soft to palpation and nontender Auscultation: normal bowel sounds Skin General skin exam: no rashes or lesions noted Neuro General: patient oriented x3 Extrem General: Yes full ROM Psych Appearance: grossly normal and well kempt Mental Status: mental status grossly normal Speech and movement: Normal speech and movement present and Clear speech present Affect: normal affect Attitude: cooperative Thought process: Normal thought process present Thought content: Normal thought content present Insight: Good insight present (Psych) Judgement: Good judgement present (Psych) Results Reviewed Results Reviewed: 03/2022-Negative cologuard Assessment & Plan Assessment & Plan (1) Change in bowel function: Comment: Very alert, good historian, Dietary modifications significant improvement symptoms-no further urgency Negative Cologuard to 03/2022 Awaiting thyroidectomy Code(s): R19.8 - Other specified symptoms and signs involving the digestive system and abdomen Plan: Continue dietary modifications Discussed alternative is fiber supplements Plan Continue dietary modifications Discussed alternative is fiber supplements Patient Instructions: Continue dietary modifications Discussed alternative is fiber supplements Encouraged to call with questions or concern may do phone conversation she does not need to come into the office. Coding Level of Care Code Est Pt Level 3 (89333) Diagnoses Change in bowel function R19.8 Time Spent (min) 30
[2023-03-04 08:33] VITALS: BP 116/57; PULSE 65; BMI 20.8
== END 2023-03-04 10:42 | disposition home or self-care (01) ==
PROVIDERS: PCP Family Medicine; Visit Provider Physician Assistant
DX: R19.8 Other specified symptoms and signs involving the digestive system and abdomen (principal)
CPT/HCPCS: 99213

== ENCOUNTER → 2023-03-04 08:25 | Outpatient (BNVA) | payer OTHER, MEDICARE, SELFPAY | PROVIDERS: PCP Family Medicine; Visit Provider Physician Assistant ==

== ENCOUNTER 2023-03-14 12:50 | Outpatient (AMB) | payer OTHER, MEDICARE, SELFPAY ==
--- NOTE | 2023-03-14 12:53 | A.OFFPC_ITS ---
Vital Signs 03/14/23 12:58 Height 5 ft 1 in Weight 109 lb BMI 20.6 BP 124/66 Blood Pressure Location Rt brachial Position Sitting Respiration 13 Pulse 64 Pulse Source Pulse Oximeter Temp 97.7 F Temp Source Temporal Artery Scan Pulse Oximetry (%) 97 Oxygen Delivery Method Room Air Intake Visit Reasons: f/u HTN, renal insufficiency & LE edema Intake Note: Patient states that she believes her new medication is causing swelling.Patient states that when the swelling begins to get severe it becomes painful and she can barely walk. 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 Accompanied by: Self / Same As Patient Allergies Sulfa (Sulfonamide Antibiotics) Allergy (Unknown, Verified 03/14/23 13:04) Unknown sulfamethoxazole [From Bactrim] Allergy (Unknown, Verified 03/14/23 13:04) Unknown trimethoprim [From Bactrim] Allergy (Unknown, Verified 03/14/23 13:04) Unknown Medication List - Last Reconciled 03/14/23 by Nick Cisneros MD cholecalciferol (vitamin D3) 1,250 mcg PO QWEEK 30 days furosemide 10 mg (1/2 x 20 mg) PO DAILY 30 days propranolol ER 160 mg PO DAILY 90 days valsartan-hydrochlorothiazide 320-12.5 mg 1 tab PO DAILY 30 days Tobacco use date assessed: 02/03/23 Fall risk assessment: No Falls in past year Last assessed Fall Risk: 03/14/23 Dental Screening Dental Screen Date: 03/14/23 Did you have a dental visit in the last 12 months?: Yes Did you have a dental problem in the last 6 months where you did not have access to dental care?: No Was dental information given to patient?: Patient has dentist HPI f/u HTN, renal insufficiency & LE edema HPI Details 78 y/o female presents to f/u hypertensi on, renal insufficiency & LE edema. Blood pressure today 124/66. He is on amlodipine 10mg, valsartan-HCTZ 160-12.5mg daily. Also on propranolol 160mg daily. Pt reports amlodipine has been causing swelling. Patient states that when the swelling begins to get severe it becomes painful and she can barely walk. She denies any breathing difficulties. [facility] Medical History Multinodular thyroid Surgical History History of surgery History of wisdom tooth extraction Family History Father Heart failure Mother Heart failure Brother No problems noted. Brother No problems noted. Sister No problems noted. Sister No problems noted. Son No problems noted. Son No problems noted. Son No problems noted. Son No problems noted. 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 Lalo Casey, Christina Brown, Dony Cobb and colleagues, with an educational viral from [employer]. Review of Systems Const Denies chills, Denies fatigue, Denies fever(s), Denies headache(s) and Denies weakness ENT Denies dizziness and Denies headache(s) Card Denies dyspnea Resp Denies cough, Denies dyspnea, Denies wheezing and Denies other (shortness of breath) Musc Denies numbness and Denies tingling Neuro Denies dizziness, Denies headache(s), Denies numbness, Denies tingling and Denies weakness Psych Denies anxiety and Denies depression Endo Denies fatigue Aller/Immun Denies wheezing Physical exam (Primary Care) Vital Signs: Last Vital Signs Temp 97.7 F 03/14/23 12:58 Pulse 64 03/14/23 12:58 Resp 13 03/14/23 12:58 BP 124/66 03/14/23 12:58 Pulse Ox 97 03/14/23 12:58 Oxygen Delivery Method Room Air 03/14/23 12:58 BMI result Body Mass Index 20.6 Tobacco/Smoking Status: Tobacco use Status Tobacco use date assessed 02/03/23 03/14/23 12:55 Patient Tobacco Use Status Never used Tobacco 03/14/23 12:55 e-Cigarette/Vaping Use Never Used 03/14/23 12:55 Thrive Assessment: Date of Thrive Assessment Date Thrive assessed 01/03/21 03/14/23 12:55 Const General: well developed; No acute distress Nutritional Appearance: well nourished Orientation/consciousness: patient oriented x3 HENMT Head: Yes normocephalic and Yes atraumatic Eyes General: appearance normal, both eyes and all related structures Pupils: Equal, round and reactive pupils present EOM: EOMs intact bilaterally Resp Effort & Inspection: normal respiratory effort Auscultation: clear to auscultation bilaterally Cardio Rate: regular rate Rhythm: regular rhythm Heart sounds: S1 normal heart sound present, S2 normal heart sound present, no gallops, no murmurs and no rubs Neuro General: patient oriented x3 and gait normal Cranial nerves: Yes Equal, round and reactive pupils present Extrem Other: 2+ LE edema Psych Affect: normal affect Assessment and Plan Assessment & Plan (1) Essential hypertension: Code(s): I10 - Essential (primary) hypertension Plan: Blood?pressure?is?well?controlled?today.??Goal?is?less?than?140/90 However,?her?lower?extremities?show?2+?edema?with?amlodipine?so?will?adjust?her? regimen She?had?been?on?valsartan-hydrochlorothiazide?320/25?and?creatinine?level?had?bu mped?up Decreased?this?to?160/12.5?and?creatinine?level?had?normalized?but,?as?above?she ?did?not?tolerate?amlodipine?which?was?added?to?continue?good?blood?pressure?con trol. Will?discontinue?amlodipine?and?try?valsartan-hydrochlorothiazide?320/12.5. She?will?continue?furosemide?as?already?prescribed (2) Swelling of lower extremity: Code(s): M79.89 - Other specified soft tissue disorders Plan: As?above?and?she?will?continue?furosemide?as?prescribed (3) Renal insufficiency: Code(s): N28.9 - Disorder of kidney and ureter, unspecified Plan: Creatinine?level?had?bumps?on?higher?levels?of?valsartan-hydrochlorothiazide Decreasing?dose?normalized?her?creatinine?level. Adjusting?dose?again?as?above Checking?labs?this?week. Medications: New valsartan-hydrochlorothiazide 320-12.5 mg 1 tab PO DAILY 30 tabs 2RF 30 days Discontinued valsartan-hydrochlorothiazide 160-12.5 mg Discontinued Reason: Doctor's Order 1 tab PO DAILY 30 tabs 1RF 30 days Coding Level of Care Code Est Pt Level 4 (03216) Diagnoses Essential hypertension I10 Swelling of lower extremity M79.89 Renal insufficiency N28.9
[2023-03-14 12:58] VITALS: BP 124/66; PULSE 64; RESP 13; TEMP 36.5; O2SAT 97; BMI 20.6
== END 2023-03-14 13:43 | disposition home or self-care (01) ==
PROVIDERS: PCP Family Medicine; Visit Provider Family Medicine
DX: I10 Essential (primary) hypertension (principal); M79.89 Other specified soft tissue disorders; N28.9 Disorder of kidney and ureter, unspecified
CPT/HCPCS: 99214

== ENCOUNTER 2023-03-21 05:55 | Outpatient (REF) | payer OTHER, MEDICARE, SELFPAY ==
[2023-03-21 07:39] LABS: Anion Gap 13 (12-20); Blood Urea Nitrogen 26 mg/dL (9-16); Calcium 10.1 mg/dL (8.4-10.2); Carbon Dioxide 29 mmol/L (22-29); Chloride 100 mmol/L (96-108); Estimated Glomerular Filt Rate 28; Glucose Random 106 mg/dL (60-115); Potassium 4.1 mmol/L (3.3-5.1); Sodium 138 mmol/L (135-145)
== END 2023-03-21 05:56 | disposition home or self-care (01) ==
LOC: HO.LAB 05:55
PROVIDERS: PCP Family Medicine; Visit Provider Family Medicine
DX: Z00.00 Encounter for general adult medical examination without abnormal findings (principal); N28.9 Disorder of kidney and ureter, unspecified
CPT/HCPCS: 36415; 80048

== ENCOUNTER 2023-05-22 14:43 | Outpatient (AMB) | payer OTHER, MEDICARE, SELFPAY ==
[2023-05-22 15:07] VITALS: BP 116/70; PULSE 65; O2SAT 95; BMI 20.6
--- NOTE | 2023-05-22 15:07 | MHC.PC.OV ---
Vital Signs 05/22/23 15:07 Height 5 ft 1 in Weight 109 lb BMI 20.6 BP 116/70 Blood Pressure Location Lt brachial Position Sitting Pulse 65 Pulse Source Pulse Oximeter Pulse Oximetry (%) 95 Oxygen Delivery Method Room Air Intake Visit Reasons: f/u LE swelling and kidney functions Intake Note: Patient is following up on LE swelling and kidney functions, patient states that she feels better. Allergies Sulfa (Sulfonamide Antibiotics) Allergy (Unknown, Verified 03/14/23 13:04) Unknown sulfamethoxazole [From Bactrim] Allergy (Unknown, Verified 03/14/23 13:04) Unknown trimethoprim [From Bactrim] Allergy (Unknown, Verified 03/14/23 13:04) Unknown Tobacco use date assessed: 02/03/23 [facility] Medical History Multinodular thyroid Surgical History History of surgery History of wisdom tooth extraction Family History Father Heart failure Mother Heart failure Brother No problems noted. Brother No problems noted. Sister No problems noted. Sister No problems noted. Son No problems noted. Son No problems noted. Son No problems noted. Son No problems noted. 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 Lalo Casey, Christina Brown, Dony Cobb and colleagues, with an educational viral from [employer]. Physical exam (Primary Care) Vital Signs: Last Vital Signs Pulse 65 05/22/23 15:07 BP 116/70 05/22/23 15:07 Pulse Ox 95 05/22/23 15:07 Oxygen Delivery Method Room Air 05/22/23 15:07 BMI result Body Mass Index 20.6 Tobacco/Smoking Status: Tobacco use Status Tobacco use date assessed 02/03/23 05/22/23 15:13 Patient Tobacco Use Status Never used Tobacco 05/22/23 15:13 e-Cigarette/Vaping Use Never Used 05/22/23 15:13 Thrive Assessment: Date of Thrive Assessment Date Thrive assessed 01/03/21 05/22/23 15:13 Assessment and Plan Assessment & Plan (1) Essential hypertension: Code(s): I10 - Essential (primary) hypertension Plan: Had?discontinued?amlodipine?because?she?had?lower?extremity?swelling?and?I?had?increase?the?valsartan?in?her?combo?pill?to?compensate?for?this. However?her?creatinine?level?has?bumped?again?from?higher?doses?of?combo?pill. Heart?rate?at?65?on?propranolol?so?would?prefer?not?to?increase?this Will?give?her?hydralazine?b.i.d.?and?lower?her?valsartan?combo?pill.??Continue?propranolol?as?prescribed. (2) Swelling of lower extremity: Code(s): M79.89 - Other specified soft tissue disorders Plan: Lower?extremity?swelling?has?improved?greatly?after?stopping?amlodipine?and?she?is?on?a?small?dose?of?furosemide (3) Renal insufficiency: Code(s): N28.9 - Disorder of kidney and ureter, unspecified Plan: As?above (4) Multinodular thyroid: Code(s): E04.2 - Nontoxic multinodular goiter Plan: She?has?an?upcoming?thyroidectomy?with? Medications: New hydralazine 10 mg PO BID 60 tabs 2RF 30 days Refilled valsartan-hydrochlorothiazide 160-12.5 mg 1 tab PO DAILY 30 tabs 1RF 30 days Discontinued valsartan-hydrochlorothiazide 320-12.5 mg Discontinued Reason: Doctor's Order 1 tab PO DAILY 30 tabs 2RF 30 days Coding Level of Care Code Est Pt Level 4 (45255) Diagnoses Essential hypertension I10 Swelling of lower extremity M79.89 Renal insufficiency N28.9 Multinodular thyroid E04.2
== END 2023-05-22 15:49 | disposition home or self-care (01) ==
PROVIDERS: PCP Family Medicine; Visit Provider Family Medicine
DX: I10 Essential (primary) hypertension (principal); M79.89 Other specified soft tissue disorders; N28.9 Disorder of kidney and ureter, unspecified; E04.2 Nontoxic multinodular goiter
CPT/HCPCS: 99214

== ENCOUNTER 2023-06-20 08:58 | Outpatient (AMB) | payer OTHER, MEDICARE, SELFPAY ==
--- NOTE | 2023-06-20 09:12 | A.OFFPC_ITS ---
Vital Signs 06/20/23 09:13 Height 5 ft 1 in Weight 110 lb 2 oz BMI 20.8 BP 138/61 Blood Pressure Location Lt brachial Position Sitting Pulse 62 Pulse Source Pulse Oximeter Pulse Oximetry (%) 98 Oxygen Delivery Method Room Air Intake Visit Reasons: pre op [facility] left thyroid lobectmy Intake Note: Patient is here for preop for [facility] left thyroid lobectomy. Allergies Sulfa (Sulfonamide Antibiotics) Allergy (Unknown, Verified 06/20/23 09:15) Unknown sulfamethoxazole [From Bactrim] Allergy (Unknown, Verified 06/20/23 09:15) Unknown trimethoprim [From Bactrim] Allergy (Unknown, Verified 06/20/23 09:15) Unknown Medication List - Last Reconciled 06/20/23 by Nick Cisneros MD cholecalciferol (vitamin D3) 1,250 mcg PO QWEEK 30 days furosemide 10 mg (1/2 x 20 mg) PO DAILY 30 days hydralazine 10 mg PO BID 30 days propranolol ER 160 mg PO DAILY 90 days valsartan-hydrochlorothiazide 160-12.5 mg 1 tab PO DAILY 30 days Tobacco use date assessed: 06/20/23 Fall risk assessment: No Falls in past year Last assessed Fall Risk: 06/20/23 Dental Screening Dental Screen Date: 06/20/23 Did you have a dental visit in the last 12 months?: Yes Did you have a dental problem in the last 6 months where you did not have access to dental care?: No Was dental information given to patient?: Patient has dentist HPI pre op [facility] left thyroid lobectmy HPI Details Patient presents for preoperative clearance prior to L thyroid lobectomy. Procedure: L Thyroidectomy Date: 07/14/2023 Surgeon: Anesthesia: General Cardiac Hx: None Pulmonary Hx: None Prior Surgical complications: None Prior Anesthesia Complications: None Coag Issues: None Functional [place]: Good functional reserve [facility] Medical History Multinodular thyroid Surgical History History of surgery History of wisdom tooth extraction Family History Father Heart failure Mother Heart failure Brother No problems noted. Brother No problems noted. Sister No problems noted. Sister No problems noted. Son No problems noted. Son No problems noted. Son No problems noted. Son No problems noted. 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 1. Little interest or pleasure in doing things: not at all 2. Feeling down, depressed, or hopeless: not at all 3. Trouble falling or staying asleep, or sleeping too much: not at all 4. Feeling tired or having little energy: not at all 5. Poor appetite or overeating: not at all 6. Feeling bad about yourself - or that you are a failure or have let yourself or your family down: not at all 7. Trouble concentrating on things, such as reading the newspaper or watching television: not at all 8. Moving or speaking so slowly that other people could have noticed. Or the opposite - being so fidgety or restless that you have been moving around a lot more than usual: not at all 9. Thoughts that you would be better off or of hurting yourself in some way: not at all Total score: 0 Source: Developed by Drs. Lalo Casey, Christina Brown, Dony Cobb and colleagues, with an educational viral from [employer]. Thrive Questionnaire Date Thrive assessed: 06/20/23 I am a: Patient What is your living situation today?: I have a steady place to live Within the past 12 months, did the food you bought not last and you didn't have the money to get more?: Never true Within the past 12 months, did you worry whether your food would run out before you got money to buy more?: Never true Do you have trouble paying for medicines?: No Do you have trouble getting transportation to medical appointments?: No Do you have trouble paying your heating and electricity bill?: No Do you have trouble taking care of your child, family member or friend?: No Do you have trouble with day-to-day activities such as bathing, preparing meals, shopping, managing finances, etc.?: No Are you currently unemployed and looking for a job?: No Are you interested in more education?: No THRIVE Score: 0 AUDIT C Alcohol Use Questionnaire (AUDIT-C) 1. How often do you have a drink containing alcohol?: Monthly or less 2. How many drinks containing alcohol do you have on a typical day when you are drinking?: 1 or 2 3. How often do you have six or more drinks on one occasion?: Never Total Score: 1 GASPER-7 AMB Questionnaire GASPER-7 Date GASPER - 7 assessed: 06/20/23 Feeling nervous, anxious, or on edge: 0 = Not at all Not being able to stop or control worryin = Not at all Worrying too much about different things: 0 = Not at all Trouble relaxin = Not at all Being so restless that it is hard to sit still: 0 = Not at all Becoming easily annoyed or irritable: 0 = Not at all Feeling afraid as if something awful might happen: 0 = Not at all Total GASPER-7 score (0-4 normal; 5-9 mild; 10-14 moderate; 15-21 severe): 0 Source: Developed by Drs. Lalo Casey, Christina Brown, Dony Cobb and colleagues, with an educational viral from [employer]. Review of Systems Const Denies chills, Denies fatigue, Denies fever(s), Denies headache(s) and Denies weakness ENT Denies dizziness and Denies headache(s) Card Denies chest pain, Denies lightheadedness, Denies dyspnea and Denies other (Palpitations) Resp Denies cough, Denies dyspnea, Denies wheezing and Denies other ( shortness of breath) Musc Denies numbness and Denies tingling Neuro Denies dizziness, Denies headache(s), Denies numbness, Denies tingling, Denies paresthesias and Denies weakness Psych Denies anxiety and Denies depression Endo Denies fatigue Aller/Immun Denies wheezing Physical exam (Primary Care) Vital Signs: Last Vital Signs Pulse 62 06/20/23 09:13 BP 138/61 06/20/23 09:13 Pulse Ox 98 06/20/23 09:13 Oxygen Delivery Method Room Air 06/20/23 09:13 BMI result Body Mass Index 20.8 Tobacco/Smoking Status: Tobacco use Status Tobacco use date assessed 06/20/23 06/20/23 09:18 Patient Tobacco Use Status Never used Tobacco 06/20/23 09:13 e-Cigarette/Vaping Use Never Used 06/20/23 09:13 PHQ-9: PHQ-9 Score PHQ-9: Total score 0 06/20/23 09:32 Thrive Assessment: Date of Thrive Assessment Date Thrive assessed 06/20/23 06/20/23 09:22 Const General: no acute distress and well developed Nutritional Appearance: well nourished Orientation/consciousness: patient oriented x3 HENMT Head: Yes normocephalic and Yes atraumatic Eyes General: appearance normal, both eyes and all related structures Pupils: Equal, round and reactive pupils present EOM: EOMs intact bilaterally Resp Effort & Inspection: normal respiratory effort Auscultation: clear to auscultation bilaterally Cardio Rate: regular rate Rhythm: regular rhythm Heart sounds: S1 normal heart sound present, S2 normal heart sound present, no gallops, no murmurs and no rubs Neuro General: patient oriented x3 and gait normal Cranial nerves: Yes Equal, round and reactive pupils present Psych Affect: normal affect Assessment and Plan Assessment & Plan (1) Pre-operative clearance: Code(s): Z01.818 - Encounter for other preprocedural examination Plan: Patient?presents?for?preoperative?clearance?prior?to?left lobe?thyroidectomy No?history?of?cardiac?or?pulmonary?disease?and?cardiopulmonary?exam?today?is?wit hin?normal?limits. EKG?shows?normal?sinus?rhythm,?normal?axis,?no?hypertrophy,?no? ischemia?or?infarctions. ?Normal?EKG. She?has?had?no?prior?surgical?or?anesthesia?complications. No clotting/bleeding?disorders Good?functional?reserve Low?risk?patient?for?intermediate?risk?surgery ?no?contraindications?to?proceeding?with?proposed?procedure Orders: Orders Basic Metabolic Panel Today N28.9 - Disorder of kidney and ureter, unspecified, Z00.00 - Encounter for general adult medical examination without abnormal findings Complete Blood Count Auto Diff Today Z00.00 - Encounter for general adult medical examination without abnormal findings, Z01.818 - Encounter for other preprocedural examination AMB EKG-In Office Today Z01.818 - Encounter for other preprocedural examination Prothrombin Time INR Today Z01.818 - Encounter for other preprocedural examination Coding Level of Care Code Est Pt Level 3 (42590) Diagnoses Pre-operative clearance Z01.818
[2023-06-20 09:13] VITALS: BP 138/61; PULSE 62; O2SAT 98; BMI 20.8
== END 2023-06-20 10:09 | disposition home or self-care (01) ==
PROVIDERS: PCP Family Medicine; Visit Provider Family Medicine
DX: Z01.818 Encounter for other preprocedural examination (principal)
CPT/HCPCS: 99213

== ENCOUNTER 2023-06-20 10:15 | Outpatient (REF) | payer OTHER, MEDICARE, SELFPAY ==
[2023-06-20 11:31] LABS: MANUAL DIFF FLAG NO
[2023-06-20 11:49] LABS: Basophils Absolute Auto 0.1 X10*3/uL (0.0-0.2); Basophils Percent Auto 1.5 % (0-2); Eosinophils Absolute Auto 0.2 X10*3/uL (0.0-0.4); Eosinophils Percent Auto 3.9 % (0-4); Hematocrit 40.3 % (37.0-47.0); Hemoglobin 13.6 g/dl (12.0-16.0); Imm Gran Abs Auto 0.04 X10*3/uL (0.00-0.03); Imm Gran Pct Auto 0.6 % (0.0-0.4); Lymphocytes Absolute Auto 1.9 X10*3/uL (1.2-4.9); Lymphocytes Percent Auto 31.3 % (20-40); Mean Corpuscular HGB Conc 33.7 g/dl (31.0-35.0); Mean Corpuscular Hemoglobin 30.6 pg (27.0-33.0); Mean Corpuscular Volume 90.6 fL (80.0-98.0); Mean Platelet Volume 9.6 fL (9.4-12.3); Monocytes Absolute Auto 0.7 X10*3/uL (0.1-1.2); Monocytes Percent Auto 11.1 % (2-11); Neutrophils Absolute Auto 3.2 x10*3/uL (2.0-8.3); Neutrophils Percent Auto 51.6 % (45-73); Platelet Count 411 X10*3/uL (160-400); Red Blood Count 4.45 X10*6/uL (4.20-5.50); White Blood Count 6.2 X10*3/uL (4.8-10.8)
[2023-06-20 11:50] LABS: Appearance Urine Clear; Color Urine Yellow; Glucose Urine UA Negative (Negative); Leukocyte Esterase Urine Moderate (2+) (Negative); Nitrite Urine Negative (Negative); PH 5.5 (5.0-9.0); UMIC TRIGGER UA YES; Urine Blood Negative (Negative); Urine Ketones Negative (Negative); Urine Protein Negative (Neg-Trace)
[2023-06-20 11:55] LABS: Bacteria Urine None Seen (None Seen); Hyaline Casts Urine 0-2 /LPF (0-2); INTERNATIONAL NORM RATIO 0.8 (0.9-1.1); Prothrombin Time 10.1 SEC (11.1-13.3); RBC Urine 0-2 /HPF (0-2)
[2023-06-20 12:17] LABS: Anion Gap 15 (12-20); Blood Urea Nitrogen 22 mg/dL (9-16); Calcium 9.8 mg/dL (8.4-10.2); Carbon Dioxide 28 mmol/L (22-29); Chloride 103 mmol/L (96-108); Estimated Glomerular Filt Rate 42; Glucose Random 93 mg/dL (60-115); Potassium 3.7 mmol/L (3.3-5.1); Sodium 142 mmol/L (135-145)
== END 2023-06-20 10:16 | disposition home or self-care (01) ==
LOC: HO.WFDLDS 10:15
PROVIDERS: Visit Provider Family Medicine
DX: Z01.818 Encounter for other preprocedural examination (principal); N28.9 Disorder of kidney and ureter, unspecified
CPT/HCPCS: 36415; 80048; 81001; 85025; 85610

== ENCOUNTER 2023-07-10 11:02 | Outpatient (AMB) | payer OTHER, MEDICARE, SELFPAY ==
[2023-07-10 11:49] VITALS: BP 118/70; PULSE 68; TEMP 36.6; O2SAT 97; BMI 20.8
--- NOTE | 2023-07-10 11:49 | AM.OFFWIN_ITS ---
Intake Vital Signs 07/10/23 11:49 Height 5 ft 1 in Weight 110 lb BMI 20.8 BP 118/70 Blood Pressure Location Lt brachial Position Sitting Pulse 68 Pulse Source Pulse Oximeter Temp 97.9 F Temp Source Temporal Artery Scan Pulse Oximetry (%) 97 Oxygen Delivery Method Room Air Intake Visit Reasons: EP RT Hand Intake Note: pt is here today for rt hand started yesterday, denies injury. pt suspects its carpal tunnel Patient Tobacco Use Status: Never used Tobacco Allergies Sulfa (Sulfonamide Antibiotics) Allergy (Unknown, Verified 07/10/23 12:03) Unknown sulfamethoxazole [From Bactrim] Allergy (Unknown, Verified 07/10/23 12:03) Unknown trimethoprim [From Bactrim] Allergy (Unknown, Verified 07/10/23 12:03) Unknown Do you need a note to return to daycare/school/sports/work: No HPI HPI Comments History of Present Illness Details 78 y/o female patient who presents to [facility] in clinic with c/o right hand pain since yesterday. Denies injury or trauma. Denies numbness or tingling. [facility] Medical History Multinodular thyroid Surgical History History of surgery History of wisdom tooth extraction Family History Father Heart failure Mother Heart failure Brother No problems noted. Brother No problems noted. Sister No problems noted. Sister No problems noted. Son No problems noted. Son No problems noted. Son No problems noted. Son No problems noted. 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 Current occupational exposures/hazards: No Cognitive needs: No Hearing needs: No Vision needs: No Review of Systems Const All systems reviewed & are unremarkable except as noted in HPI and below Physical Exam Vital Signs: Last Vital Signs Temp 97.9 F 07/10/23 11:49 Pulse 68 07/10/23 11:49 BP 118/70 07/10/23 11:49 Pulse Ox 97 07/10/23 11:49 Oxygen Delivery Method Room Air 07/10/23 11:49 BMI result Body Mass Index 20.8 Const General: no acute distress Orientation/consciousness: patient oriented x3 Neuro General: patient oriented x3 Gait exam (Neuro): Normal gait present Motor exam (neuro): 5/5 motor strength present throughout Extrem Right upper extremity: Extremity exam: right hand Details: normal capillary refill, neuromotor exam normal, tenderness Location: of the thumb Location: at the MCP joint, normal ROM of fingers and swelling (Mild swelling) Location: of the dorsal hand and of the thumb Assessment & Plan Assessment & Plan (1) Right hand pain: Code(s): M79.641 - Pain in right hand Plan: - Wrapped hand with Nestor bandage - Acetaminophen for pain relief - Elavate and Heat Orders: Orders XR hand wrist RT Today Medications: New acetaminophen 1,000 mg (2 x 500 mg) PO Q6H PRN 30 caps 0RF pain M79.641 - Pain in right hand Coding Level of Care Code Est Pt Level 3 (78076) Diagnoses Right hand pain M79.641 Time Spent (min) 15
== END 2023-07-10 15:57 | disposition home or self-care (01) ==
PROVIDERS: PCP Family Medicine; Visit Provider Nurse Practitioner Family
DX: M79.641 Pain in right hand (principal)
CPT/HCPCS: 99213

== ENCOUNTER 2023-07-10 12:32 | Outpatient (REF) | payer OTHER, MEDICARE, SELFPAY ==
--- NOTE | ~2023-07-10 | XR_ITS ---
EXAMINATION: XR HAND/WRIST, RIGHT CLINICAL INFORMATION: Right hand pain COMPARISON: None TECHNIQUE: PA, lateral, and oblique views of the right hand and wrist. The patient is unable to remove the ring overlying the proximal phalanx of the middle finger. FINDINGS: There are marked erosive changes of the distal aspect of the middle phalanx and the distal phalanx of the index finger with lobular soft tissue fullness in these areas. No fracture. Alignment is anatomic. There is moderate degenerative change of the first carpometacarpal joint. XR/XR hand wrist RT IMPRESSION: Marked erosive changes of the distal aspect of the middle phalanx and distal phalanx of the index finger with lobular soft tissue fullness in these areas.
== END 2023-07-10 12:33 | disposition home or self-care (01) ==
LOC: HO.HMGCX 12:32
PROVIDERS: PCP Family Medicine; Visit Provider Nurse Practitioner Family
DX: M79.641 Pain in right hand (principal)
CPT/HCPCS: 73110; 73130

== ENCOUNTER 2023-07-11 11:27 | Outpatient (AMB) | payer OTHER, MEDICARE, SELFPAY ==
[2023-07-11 11:28] VITALS: BP 120/82; PULSE 67; TEMP 36.7; O2SAT 99; BMI 21.2
--- NOTE | 2023-07-11 11:28 | AM.OFFWIN_ITS ---
Intake Vital Signs 07/11/23 11:28 Height 5 ft 1 in Weight 112 lb BMI 21.2 BP 120/82 Blood Pressure Location Lt brachial Position Sitting Pulse 67 Pulse Source Pulse Oximeter Temp 98.1 F Temp Source Temporal Artery Scan Pulse Oximetry (%) 99 Oxygen Delivery Method Room Air Intake Visit Reasons: EP RT hand pain Intake Note: pt is here today rt hand pain started yesterday Patient Tobacco Use Status: Never used Tobacco Allergies Sulfa (Sulfonamide Antibiotics) Allergy (Unknown, Verified 07/11/23 11:30) Unknown sulfamethoxazole [From Bactrim] Allergy (Unknown, Verified 07/11/23 11:30) Unknown trimethoprim [From Bactrim] Allergy (Unknown, Verified 07/11/23 11:30) Unknown Do you need a note to return to daycare/school/sports/work: No HPI HPI Comments History of Present Illness Details 78 y/o female patient who presents to [facility] in clinic with c/o right hand pain since yesterday. Patient was seen by me yesterday for similar symptom. She was prescribed PAin medication but reports no relief. Xray negative for fracture. [facility] Medical History Multinodular thyroid Surgical History History of surgery History of wisdom tooth extraction Family History Father Heart failure Mother Heart failure Brother No problems noted. Brother No problems noted. Sister No problems noted. Sister No problems noted. Son No problems noted. Son No problems noted. Son No problems noted. Son No problems noted. 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 Current occupational exposures/hazards: No Cognitive needs: No Hearing needs: No Vision needs: No Review of Systems Const All systems reviewed & are unremarkable except as noted in HPI and below Physical Exam Vital Signs: Last Vital Signs Temp 98.1 F 07/11/23 11:28 Pulse 67 07/11/23 11:28 BP 120/82 07/11/23 11:28 Pulse Ox 99 07/11/23 11:28 Oxygen Delivery Method Room Air 07/11/23 11:28 BMI result Body Mass Index 21.2 Const General: no acute distress Orientation/consciousness: patient oriented x3 Resp Effort & Inspection: able to speak in complete sentences Neuro General: patient oriented x3 and no focal motor deficits Extrem Other: Same as previously evaluated and recorded yesterday, no changes. Assessment & Plan Assessment & Plan (1) Right hand pain: Code(s): M79.641 - Pain in right hand Plan: - Continue with pain killers as directed - ICE HOT - Rest Elevate joint - Advised to f/u with PCP for Ortho referral and PT. Coding Level of Care Code Est Pt Level 3 (12859) Diagnoses Right hand pain M79.641 Time Spent (min) 10
== END 2023-07-11 13:23 | disposition home or self-care (01) ==
PROVIDERS: PCP Family Medicine; Visit Provider Nurse Practitioner Family
DX: M79.641 Pain in right hand (principal)
CPT/HCPCS: 99213

== ENCOUNTER 2023-07-23 11:05 | Outpatient (AMB) | payer OTHER, MEDICARE, SELFPAY ==
[2023-07-23 11:07] VITALS: BMI 21.2
--- NOTE | 2023-07-23 11:07 | MHC.OFFVIS ---
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 Pain started on 07/10/23 and she was seen at the [facility] walk in [place] where she was given an EMELI wrap and NSAIDs. Patient reports that she had her thyroid removed 07/14/23, She is doing well from this surgery. Her surgeon who removed her thyroid told her that she was having a gout flair up of her finger. She has a large area of swelling of the tip of the 2nd and 3rd fingers, the thumb is not painful however the 2nd digit has become quite bothersome. She has had not had any treatment for gout Allergies Sulfa (Sulfonamide Antibiotics) Allergy (Unknown, Verified 07/11/23 11:30) Unknown sulfamethoxazole [From Bactrim] Allergy (Unknown, Verified 07/11/23 11:30) Unknown trimethoprim [From Bactrim] Allergy (Unknown, Verified 07/11/23 11:30) Unknown HPI HPI Comments History of Present Illness Details On day of thyroid surgery, her right hand was very swollen. While in patient, she was told at [facility] to have gout because she crystals on right thumb and index. She shows me calcifications on her fingers, that just started months ago for the first time. Denies other issues in the past related to hand pain. She attributes this to eating a lot of tuna fish. Taking ibuprofen and OTC herbal Uric Control which helps. [facility] Medical History (Updated 07/23/23 @ 12:33 by Angeles Kemp MD) Erosive (osteo)arthritis Multinodular thyroid Surgical History (Updated 07/23/23 @ 11:15 by Verónica Gallego CMA) History of thyroidectomy (~07/14/23) History of surgery History of wisdom tooth extraction Family History Father Heart failure Mother Heart failure Brother No problems noted. Brother No problems noted. Sister No problems noted. Sister No problems noted. Son No problems noted. Son No problems noted. Son No problems noted. Son No problems noted. 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 MSK: Calcifications (tophi?) seen on right 2nd DIP, right 1st IP and left 2nd PIP. No intrinsic hand weakness noted. No atrophy noted. Bria test negative. Carpal compression test negative. Tinel sign negative. Strength is 5/5 in all muscle groups tested. No increased tone noted. Neurological: Neurologic examination of the upper and lower extremities was nonfocal with intact sensation, muscle stretch reflexes and without focal motor deficits . Carver?s negative bilaterally. Gait is non-antalgic without loss of balance. Results Reviewed Results Reviewed: I independently reviewed the results of the following: Erosion seen on right 2nd and 1st IP joints. Images were shown to the patient. Ordering Physician: Asya Lamb NP Date of Service: 07/10/23 Procedure(s): XR hand wrist RT Accession Number(s): [id number] cc: Nick Cisneros MD; Asya Lamb NP~ EXAMINATION: XR HAND/WRIST, RIGHT CLINICAL INFORMATION: Right hand pain COMPARISON: None TECHNIQUE: PA, lateral, and oblique views of the right hand and wrist. The patient is unable to remove the ring overlying the proximal phalanx of the middle finger. FINDINGS: There are marked erosive changes of the distal aspect of the middle phalanx and the distal phalanx of the index finger with lobular soft tissue fullness in these areas. No fracture. Alignment is anatomic. There is moderate degenerative change of the first carpometacarpal joint. XR/XR hand wrist RT IMPRESSION: Marked erosive changes of the distal aspect of the middle phalanx and distal phalanx of the index finger with lobular soft tissue fullness in these areas. I reviewed records from the following: PCP Assessment & Plan Assessment & Plan (1) Erosive (osteo)arthritis: Code(s): M15.4 - Erosive (osteo)arthritis (2) Gout: Code(s): M10.9 - Gout, unspecified Qualifiers: Gout site: hand Gout etiology: unspecified cause Chronicity: acute Laterality: right Qualified Code(s): M10.9 - Gout, unspecified Plan X-ray shows erosions which raise suspicion for inflammatory arthritis. Hand exam shows possible tophi. Would recommend she sees database manager for treatment. I debated whether I should start her on oral colchicine or prednisone already, but given her other medical history, would defer to database manager. We were able to get an appointment for her this afternoon. I placed orders for , RF, uric acid. Advised her not to do blood tests yet until she sees rheumatology, in case they would add more. Assessment and plan discussed with patient, and patient was agreeable. All questions were answered thoroughly. Angeles Kemp MD, DAVE Board Certified, [place] Board [employer] and Rehabilitation (ABPMR) Board Certified, [place] Board of Electrodiagnostic Medicine (ABEM) Orders: Orders Uric Acid Today M10.9 - Gout, unspecified, M15.4 - Erosive (osteo)arthritis Reflex Titer and Pattern Today M10.9 - Gout, unspecified, M15.4 - Erosive (osteo)arthritis Rheumatoid Factor Today M10.9 - Gout, unspecified, M15.4 - Erosive (osteo)arthritis Referrals Rheumatology Referral M10.9 - Gout, unspecified, M15.4 - Erosive (osteo)arthritis Coding Level of Care Code New Pt Level 4 (58113) Diagnoses Erosive (osteo)arthritis M15.4 Acute gout of right hand, unspecified cause M10.9 Gout site: hand Gout etiology: unspecified cause Chronicity: acute Laterality: right
== END 2023-07-23 12:31 | disposition home or self-care (01) ==
PROVIDERS: PCP Family Medicine; Visit Provider Physical Medicine & Rehabilitation
DX: M15.4 Erosive (osteo)arthritis (principal); M10.9 Gout, unspecified
CPT/HCPCS: 99204

== ENCOUNTER 2023-07-23 11:05 | Outpatient (REF) | payer OTHER, MEDICARE, SELFPAY ==
--- NOTE | ~2023-07-23 | XR_ITS ---
EXAMINATION: XR HAND/WRIST, LEFT CLINICAL INFORMATION: Gout, unspecified COMPARISON: None TECHNIQUE: PA, lateral, and oblique views of the left hand and wrist. FINDINGS: The bones are intact. No fracture. Alignment is anatomic. There is moderate degenerative change of the first carpometacarpal joint and the DIP joint of the index finger. There are erosions seen in the second and third metacarpal heads. There is a small erosion in the base of the the first metacarpal There is poorly defined lucency in the proximal shaft of the middle finger. XR/XR hand wrist LT IMPRESSION: 1. Erosions in the second and third metacarpal heads. 2. Small erosion in the base of the first metacarpal. 3. Poorly defined lucency in the proximal shaft of the middle finger. 4. Moderate degenerative change of the first metacarpal joint and DIP joint of the index finger.
[2023-07-23 15:37] LABS: MANUAL DIFF FLAG NO
[2023-07-23 17:44] LABS: Basophils Absolute Auto 0.1 X10*3/uL (0.0-0.2); Basophils Percent Auto 1.2 % (0-2); Eosinophils Absolute Auto 0.4 X10*3/uL (0.0-0.4); Eosinophils Percent Auto 3.7 % (0-4); Hematocrit 39.1 % (37.0-47.0); Hemoglobin 13.1 g/dl (12.0-16.0); Imm Gran Abs Auto 0.05 X10*3/uL (0.00-0.03); Imm Gran Pct Auto 0.5 % (0.0-0.4); Lymphocytes Absolute Auto 2.8 X10*3/uL (1.2-4.9); Lymphocytes Percent Auto 28.4 % (20-40); Mean Corpuscular HGB Conc 33.5 g/dl (31.0-35.0); Mean Corpuscular Hemoglobin 30.9 pg (27.0-33.0); Mean Corpuscular Volume 92.2 fL (80.0-98.0); Mean Platelet Volume 9.1 fL (9.4-12.3); Monocytes Percent Auto 10.3 % (2-11); Neutrophils Absolute Auto 5.4 x10*3/uL (2.0-8.3); Neutrophils Percent Auto 55.9 % (45-73); Platelet Count 602 X10*3/uL (160-400); Red Blood Count 4.24 X10*6/uL (4.20-5.50); White Blood Count 9.7 X10*3/uL (4.8-10.8)
[2023-07-23 17:54] LABS: Alanine Aminotransferase 11 U/L (0-31); Alkaline Phosphatase 85 U/L (39-117); Anion Gap 12 (12-20); Aspartate Amino Transferase 19 U/L (5-31); Bilirubin Total 0.3 mg/dL (0.0-1.0); Blood Urea Nitrogen 17 mg/dL (9-16); Calcium 10.3 mg/dL (8.4-10.2); Carbon Dioxide 30 mmol/L (22-29); Chloride 102 mmol/L (96-108); Estimated Glomerular Filt Rate 46; Glucose Random 85 mg/dL (60-115); Potassium 4.2 mmol/L (3.3-5.1); Sodium 140 mmol/L (135-145); Total Protein 7.5 g/dL (6.5-8.0); Uric Acid 7.2 mg/dL (2.4-5.7)
== END 2023-07-23 11:06 | disposition home or self-care (01) ==
LOC: HO.LAB 11:05
PROVIDERS: Absent Provider Student in an Organized Health Care Education/Training Program; PCP Family Medicine; Visit Provider Physical Medicine & Rehabilitation
DX: M10.9 Gout, unspecified (principal); M15.4 Erosive (osteo)arthritis
CPT/HCPCS: 36415; 73110; 73130; 80053; 84550; 85025

== ENCOUNTER 2023-07-23 14:13 | Outpatient (AMB) | payer OTHER, MEDICARE, SELFPAY ==
--- NOTE | 2023-07-23 14:19 | A.OFFVIS_ITS ---
Intake Vital Signs 07/23/23 14:20 Height 5 ft 1 in Weight 111 lb 8.862 oz BMI 21.1 BP 122/64 Blood Pressure Location Rt brachial Position Sitting Pulse 66 Pulse Source Pulse Oximeter Pulse Oximetry (%) 96 Intake Visit Reasons: Errosive OA (? RA) and Gout Attack Intake Note: New pt presents today for Gout consult. 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: No Accompanied by: Self / Same As Patient Allergies Sulfa (Sulfonamide Antibiotics) Allergy (Unknown, Verified 07/23/23 14:23) Unknown sulfamethoxazole [From Bactrim] Allergy (Unknown, Verified 07/23/23 14:23) Unknown trimethoprim [From Bactrim] Allergy (Unknown, Verified 07/23/23 14:23) Unknown Medication List - Last Reconciled 07/23/23 by Tashi Olivarez MD acetaminophen 1,000 mg (2 x 500 mg) PO Q6H PRN cholecalciferol (vitamin D3) 1,250 mcg PO QWEEK 30 days hydralazine 10 mg PO BID 30 days propranolol ER 160 mg PO DAILY 90 days valsartan-hydrochlorothiazide 160-12.5 mg 1 tab PO DAILY 30 days HPI HPI Comments History of Present Illness Details This is a 78-year-old female who was referred from physiatry for evaluation of gout. Patient states that for about a year and half she has noticed deposits yellowish-white deposits on the tip of her right index finger as well as other fingers, rarely she would have pain, she would take Tylenol and it would help. It has not limited her in any way. She denies any history of kidney stones. Patient had thyroidectomy last week, on the day prior to her surgery she started having right hand swelling that progressed to involve her right wrist associated with significant pain, she had her thyroidectomy and was told by hand surgeon that she has gout. She was given some medication while she was admitted with some improvement. She was discharged. She was evaluated today by wetlands conservation laborer and referred to me for gout evaluation. Patient has been taking a myers extract supplement which she believes it helps. She does not have any pain today. Her mother had gout. She states that she drinks every 2-3 weeks. She would have 1 glass of of wine at most [facility] Medical History Erosive (osteo)arthritis Multinodular thyroid Surgical History History of thyroidectomy (~07/14/23) History of surgery History of wisdom tooth extraction Family History Father Heart failure Mother Heart failure Gout Brother No problems noted. Brother No problems noted. Sister No problems noted. Sister No problems noted. Son No problems noted. Son No problems noted. Son No problems noted. Son No problems noted. 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 Current occupational exposures/hazards: No Cognitive needs: No Hearing needs: No Vision needs: No Review of Systems Const Reports fatigue Musc Reports deformity and Reports arthralgias Endo Reports fatigue Physical Exam Vital Signs: Last Vital Signs Pulse 66 07/23/23 14:20 BP 122/64 07/23/23 14:20 Pulse Ox 96 07/23/23 14:20 BMI result Body Mass Index 21.1 Const General: cooperative, healthy appearing and comfortable Nutritional Appearance: average body habitus Orientation/consciousness: patient oriented x3 Limitations: no limitations HEENT Head: Yes normocephalic and Yes atraumatic Mouth: moist mucous membranes Resp Effort & Inspection: normal respiratory effort Auscultation: clear to auscultation bilaterally Cardio Rate: regular rate Rhythm: regular rhythm Neuro General: patient oriented x3 Extrem Other: Multiple tophi affecting both fingers, most prominent on right index tip. No tophi on ears Mild swelling of dorsum of right hand but no tenderness to palpation, no warmth no pain with flexion and extension of wrist Results Reviewed Results Reviewed: Right hand x-rays 06/2023 reviewed independently by me and show punched out erosive changes on the radial aspect of the right index finger Assessment & Plan Assessment & Plan (1) Gout: Code(s): M10.9 - Gout, unspecified Qualifiers: Gout site: hand Gout etiology: unspecified cause Chronicity: acute Laterality: right Qualified Code(s): M10.9 - Gout, unspecified Plan: This is a 78-year-old female who presents for evaluation of pain and swelling of right hand, on exam she has multiple tophi on both hands. Clinical picture consistent with gout. Right hand x-rays consistent with gout Will check her uric acid level, will call patient with results and discuss treatment Plan I spent 46 minutes reviewing patient's chart, reviewing her x-rays, evaluating patient, ordering diagnostic workup, counseling patient and documenting in the chart Orders: Orders Comprehensive Met. Panel Today M10.9 - Gout, unspecified Complete Blood Count Auto Diff Today M10.9 - Gout, unspecified Uric Acid Today M10.9 - Gout, unspecified XR hand wrist LT Today M10.9 - Gout, unspecified Coding Level of Care Code New Pt Level 4 (09245) Diagnoses Acute gout of right hand, unspecified cause M10.9 Gout site: hand Gout etiology: unspecified cause Chronicity: acute Laterality: right
[2023-07-23 14:20] VITALS: BP 122/64; PULSE 66; O2SAT 96; BMI 21.1
== END 2023-07-23 15:00 | disposition home or self-care (01) ==
PROVIDERS: PCP Family Medicine; Visit Provider Student in an Organized Health Care Education/Training Program
DX: M10.9 Gout, unspecified (principal)
CPT/HCPCS: 99204

== ENCOUNTER 2023-08-12 11:18 | Outpatient (REF) | payer OTHER, MEDICARE, SELFPAY ==
[2023-08-12 13:18] LABS: Free T4 (Free Thyroxine) 0.96 ng/dL (0.71-1.85); Thyroid Stimulating Hormone 11.66 uIU/mL (0.32-4.0)
== END 2023-08-12 11:19 | disposition home or self-care (01) ==
LOC: HO.LAB 11:18
PROVIDERS: PCP Family Medicine; Visit Provider Internal Medicine Endocrinology, Diabetes & Metabolism
DX: E04.2 Nontoxic multinodular goiter (principal)
CPT/HCPCS: 36415; 84439; 84443

== ENCOUNTER 2023-08-12 11:18 | Outpatient (AMB) | payer OTHER, MEDICARE, SELFPAY ==
[2023-08-12 11:19] VITALS: BP 102/74; PULSE 57; BMI 21.0
--- NOTE | 2023-08-12 11:19 | A.OFFVIS_ITS ---
Intake Vital Signs 08/12/23 11:19 Height 5 ft 1 in Weight 110 lb 14.28 oz BMI 21.0 BP 102/74 Blood Pressure Location Lt brachial Position Sitting Pulse 57 Pulse Source Pulse Oximeter Intake Visit Reasons: Post-op follow up-confirmed Intake Note: Patient presents today for Post Op follow up. Transmitter Engineer Required: No Accompanied by: Self / Same As Patient Allergies Sulfa (Sulfonamide Antibiotics) Allergy (Unknown, Verified 08/12/23 11:29) Unknown sulfamethoxazole [From Bactrim] Allergy (Unknown, Verified 08/12/23 11:29) Unknown trimethoprim [From Bactrim] Allergy (Unknown, Verified 08/12/23 11:29) Unknown HPI HPI Comments History of Present Illness Details 78 YO F with no significant PMHx who is seen in F/U for a NTMNG.. The patient last saw Dr. Eduardo on 10/03/2022 Had a recent thyroid US which revealed a large left mid pole 5.4 cm thyroid nodule. Currently denies any dysphagia but does mention hoarseness of voice. Denies sensation of swelling in the neck or difficulty breathing while lying flat. Denies any tenderness in the neck. She underwent a CT of the neck which did reveal enlargement of the L lobe of the thyroid substernal extension and deviation of the trachea to the right. She underwent FNA biopsy of this left mid pole 5.4 cm thyroid nodule 09/19/2022 with benign cytology. Denies any symptoms of hyper or hypothyroidism. Denies any history of head or neck irradiation. Denies any family history of thyroid cancer. Thyroid US: 06/05/2022 Right Thyroid Lobe: 4.5 x 1.6 x 1.2 cm, volume 4.3 mL. Parenchyma: The gland echotexture is homogeneous. Thyroid vascularity is normal. Left Thyroid Lobe: 6.3 x 3.5 x 4.1 cm, volume 47.0 mL. Parenchyma: The gland echotexture is homogeneous. Thyroid vascularity is increased. Isthmus: 0.3 cm in maximum AP dimension. Estimated total number of nodules greater than or equal to 1 cm: 1. Fiberglass Grinder nodules are described as follows: 1. Location: Right lower pole. ?? ? Size: 0.9 x 0.6 x 0.7 cm, volume 0.20 mL. ?? ? Nodule characteristics: ?? ? Composition: Spongiform (0). ?? ? ACR TI-RADS total points: 0 ?? ? ACR TI-RADS category: 1 2. Location: Right lower pole. ?? ? Size: 0.5 x 0.3 x 0.4 cm, volume 0.03 mL. ?? ? Nodule characteristics: ?? ? Composition: Cystic(0). ?? ? ACR TI-RADS total points: 0 ?? ? ACR TI-RADS category: 1 3. Location: Right mid pole. ?? ? Size: 0.6 x 0.5 x 0.5 cm, volume 0.08 mL. ?? ? Nodule characteristics: ?? ? Composition: Spongiform (0). ?? ? ACR TI-RADS total points: 0 ?? ? ACR TI-RADS category: 1 4. Location: Left mid/lower pole. ?? ? Size: 5.4 x 3.0 x 4.1 cm, volume 35.0 mL. ?? ? Nodule characteristics: ?? ? Composition: Solid/almost completely solid (2). ?? ? Echogenicity: Hyperechoic (1). ?? ? Shape: Not taller than wide (0). ?? ? Margins: Smooth (0). ?? ? Echogenic Foci: None (0). While there are regions of hyperechogenicity there are no definite punctate echogenic foci. ?? ? ACR TI-RADS total points: 3 ?? ? ACR TI-RADS category: 3 NODES: No lymphadenopathy is seen in the tissue surrounding the thyroid gland. CT Neck: 06/25/2022 FINDINGS: Skull Base: Grossly intact. 1.6 cm probable retention cysts with dystrophic calcification along the floor of the left maxillary sinus. Limited assessment of the included intracranial structures. No acute process. Visualized intraorbital soft tissues are within normal limits. Suprahyoid Neck: Nasopharynx, retropharynx, bed maker and parapharyngeal spaces appear grossly within normal limits. The major salivary glands are normal in morphology and attenuation. The oropharynx is smoothly contoured. There is a small calcified tonsillolith in the right palatine tonsil. The visualized oral tongue, base of the tongue and floor of the mouth structures appear symmetric. Lingual tonsils appear grossly unremarkable with a normal appearance to the epiglottis within the limitations of the study. No lymphadenopathy identified. Multiple scattered, normal-sized bilateral IJ chain and subarticular space lymph nodes are seen. Infrahyoid Neck: The hypopharynx and larynx appear grossly within normal limits. There is asymmetric enlargement of the left thyroid lobe with a heterogeneous appearance to the right thyroid lobe. Findings are consistent with the previously noted 5.4 cm left thyroid lobe nodule, with caudal extension into the superior mediastinum, with deviation of the trachea to the right without tracheal narrowing. This encroaches on the left tracheoesophageal groove. A few small, scattered, normal-sized bilateral IJ chain lymph nodes and level Vb lymph nodes are seen bilaterally. Small, normal-sized level Va lymph node on the left. Upper Chest: Visualized lung parenchyma is within normal limits. The visualized mediastinum is otherwise within normal limits. Skeletal: Multilevel cervical DDD and spondylosis is noted. Possible tiny bone island in the T3 vertebral body. Mild upper thoracic levocurvature noted. Other Comments: None. CT/CT soft tissue neck wo IV con IMPRESSION: 1.? Large left thyroid lobe nodule with caudal extension into the superior mediastinum with deviation of the trachea to the right and encroachment on the left tracheoesophageal groove without tracheal narrowing. ? 2.? No cervical lymphadenopathy identifi ed within the limitations of a noncontrast exam. ? 3.? Probable retention cyst with dystrop hic calcification along the floor of the left maxillary sinus. ? 4.? Cervical degenerative changes. ? 5.? Small calcified tonsillolith in the right palatine tonsil. ? 6.? Tiny sclerotic focus in the T3 verte bral body. Statistically, this is most likely a small bone island. If there is any clinical concern for malignancy, then radionuclide skeletal scintigraphy correlation would be recommended. Labs: Laboratory Tests 05/21/22 12:45 TSH 1.66 Free T4 1.23 she is status post left lobectomy with benign pathology on 07/14/[address] Samuel [facility] Medical History Erosive (osteo)arthritis Multinodular thyroid Surgical History History of thyroidectomy (~07/14/23) History of surgery History of wisdom tooth extraction Family History Father Heart failure Mother Heart failure Gout Brother No problems noted. Brother No problems noted. Sister No problems noted. Sister No problems noted. Son No problems noted. Son No problems noted. Son No problems noted. Son No problems noted. 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 Current occupational exposures/hazards: No Cognitive needs: No Hearing needs: No Vision needs: No Physical Exam Vital Signs: Last Vital Signs Pulse 57 08/12/23 11:19 BP 102/74 08/12/23 11:19 BMI result Body Mass Index 21.0 Const Other: Healing scar status post left lobectomy Assessment & Plan Assessment & Plan (1) Multinodular thyroid: Comment: 5.5 cm left thyroid lobe nodule with benign FNA cytology status post left thy roid lobectomy performed 07/14/[address] Briana Samuel Code(s): E04.2 - Nontoxic multinodular goiter Plan: This is a 78-year-old white female with a history of multinodular goiter status post left lobectomy with benign pathology. Plan is to check a TSH and free T4. Above is normal, patient can follow up with the primary care provider returned to endocrinology as needed Orders: Orders Free T4 (Free Thyroxine) Today E04.2 - Nontoxic multinodular goiter Thyroid Stimulating Hormone Today E04.2 - Nontoxic multinodular goiter Coding Level of Care Code Est Pt Level 3 (33950) Diagnoses Multinodular thyroid E04.2
== END 2023-08-12 11:42 | disposition home or self-care (01) ==
PROVIDERS: PCP Family Medicine; Visit Provider Internal Medicine Endocrinology, Diabetes & Metabolism
DX: E04.2 Nontoxic multinodular goiter (principal)
CPT/HCPCS: 99213

== ENCOUNTER 2023-08-25 13:49 | Outpatient (AMB) | payer OTHER, MEDICARE, SELFPAY ==
--- NOTE | 2023-08-25 13:53 | MHC.OFFVIS ---
Intake Vital Signs 08/25/23 13:54 Height 5 ft 1 in Weight 112 lb 14.027 oz BMI 21.3 BP 136/74 Blood Pressure Location Rt brachial Position Sitting Pulse 64 Pulse Source Pulse Oximeter Pulse Oximetry (%) 98 Oxygen Delivery Method Room Air Intake Visit Reasons: Gout/CM Intake Note: Patient last seen 07/23/23 presents today for follow up and test results. Colchicine caused diarrhea Learning And Development Associate Required: No Accompanied by: Self / Same As Patient Allergies Sulfa (Sulfonamide Antibiotics) Allergy (Unknown, Verified 08/25/23 13:57) Unknown sulfamethoxazole [From Bactrim] Allergy (Unknown, Verified 08/25/23 13:57) Unknown trimethoprim [From Bactrim] Allergy (Unknown, Verified 08/25/23 13:57) Unknown Medication List - Last Reconciled 08/25/23 by Tashi Olivarez MD acetaminophen 1,000 mg (2 x 500 mg) PO Q6H PRN allopurinol 50 mg (1/2 x 100 mg) PO DAILY cholecalciferol (vitamin D3) 1,250 mcg PO QWEEK 30 days hydralazine 10 mg PO BID 30 days levothyroxine 75 mcg PO DAILY propranolol ER 160 mg PO DAILY 90 days valsartan-hydrochlorothiazide 160-12.5 mg 1 tab PO DAILY 30 days HPI HPI Comments History of Present Illness Details 78-year-old female with gout returns for follow-up. Patient took colchicine for 2 days and caused diarrhea and loose stools. She discontinued it she has been taking allopurinol 50 mg daily since last visit. Well-tolerated. She states that she is doing well overall. Denies any joint swelling. Feels that the tophi are getting a little bit smaller. No complaints today Initial history: This is a 78-year-old female who was referred from physiatry for evaluation of gout. Patient states that for about a year and half she has noticed deposits yellowish-white deposits on the tip of her right index finger as well as other fingers, rarely she would have pain, she would take Tylenol and it would help. It has not limited her in any way. She denies any history of kidney stones. Patient had thyroidectomy last week, on the day prior to her surgery she started having right hand swelling that progressed to involve her right wrist associated with significant pain, she had her thyroidectomy and was told by hand surgeon that she has gout. She was given some medication while she was admitted with some improvement. She was discharged. She was evaluated today by storekeeper steward and referred to me for gout evaluation. Patient has been taking a myers extract supplement which she believes it helps. She does not have any pain today. Her mother had gout. She states that she drinks every 2-3 weeks. She would have 1 glass of of wine at most [facility] Medical History Erosive (osteo)arthritis Multinodular thyroid Surgical History History of thyroidectomy (~07/14/23) History of surgery History of wisdom tooth extraction Family History Father Heart failure Mother Heart failure Gout Brother No problems noted. Brother No problems noted. Sister No problems noted. Sister No problems noted. Son No problems noted. Son No problems noted. Son No problems noted. Son No problems noted. 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 Current occupational exposures/hazards: No Cognitive needs: No Hearing needs: No Vision needs: No Review of Systems Musc Reports deformity Physical Exam Vital Signs: Last Vital Signs Pulse 64 08/25/23 13:54 BP 136/74 08/25/23 13:54 Pulse Ox 98 08/25/23 13:54 Oxygen Delivery Method Room Air 08/25/23 13:54 BMI result Body Mass Index 21.3 Const General: cooperative, healthy appearing and comfortable Nutritional Appearance: average body habitus Orientation/consciousness: patient oriented x3 Limitations: no limitations HEENT Head: Yes normocephalic and Yes atraumatic Mouth: moist mucous membranes Resp Effort & Inspection: normal respiratory effort Auscultation: clear to auscultation bilaterally Cardio Rate: regular rate Rhythm: regular rhythm Neuro General: patient oriented x3 Extrem Other: Multiple tophi affecting both fingers, most prominent on right index tip. No tophi on ears Swelling and erythema of right hand and wrist resolved Results Reviewed Results Reviewed: Right hand x-rays 06/2023 reviewed independently by me and show punched out erosive changes on the radial aspect of the right index finger Assessment & Plan Assessment & Plan (1) Gout: Comment: dx 07/2023 tophaceous. 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 Has been taking allopurinol 50 mg daily for last month. Well-tolerated. Colchicine caused loose stools. Was discontinued. Increase allopurinol to 100 mg daily Labs before next visit in 2 months Plan I spent 16 minutes reviewing patient's chart, evaluating patient, ordering diagnostic workup, counseling patient and documenting in the chart Orders: Orders Uric Acid 2 Months M10.9 - Gout, unspecified Comprehensive Met. Panel 2 Months M10.9 - Gout, unspecified Medications: Changed From allopurinol 50 mg (1/2 x 100 mg) PO DAILY 15 tabs 0RF To allopurinol 100 mg PO DAILY 60 tabs 0RF Coding Level of Care Code Est Pt Level 3 (55029) Diagnoses Acute gout of right hand, unspecified cause M10.9 Gout site: hand Gout etiology: unspecified cause Chronicity: acute Laterality: right
[2023-08-25 13:54] VITALS: BP 136/74; PULSE 64; O2SAT 98; BMI 21.3
== END 2023-08-25 14:06 | disposition home or self-care (01) ==
PROVIDERS: PCP Family Medicine; Visit Provider Student in an Organized Health Care Education/Training Program
DX: M10.9 Gout, unspecified (principal)
CPT/HCPCS: 99213

== ENCOUNTER → 2023-08-25 13:49 | Outpatient (BNVA) | payer OTHER, MEDICARE, SELFPAY | PROVIDERS: PCP Family Medicine; Visit Provider Student in an Organized Health Care Education/Training Program ==

== ENCOUNTER 2023-09-04 09:34 | Outpatient (AMB) | payer OTHER, MEDICARE, SELFPAY ==
[2023-09-04 09:37] VITALS: BP 126/78; PULSE 67; O2SAT 98; BMI 22.0
--- NOTE | 2023-09-04 09:37 | A.OFFPC_ITS ---
Vital Signs 09/04/23 09:37 Height 5 ft 1 in Weight 116 lb 6 oz BMI 22.0 BP 126/78 Blood Pressure Location Lt brachial Position Sitting Pulse 67 Pulse Source Pulse Oximeter Pulse Oximetry (%) 98 Oxygen Delivery Method Room Air Intake Visit Reasons: Return to work clearance Intake Note: Patient is here for clearance to go back to work. She was out 07/14/2023- 08/17/2023. As of August 17 return back to work full duty. Allergies Sulfa (Sulfonamide Antibiotics) Allergy (Unknown, Verified 09/04/23 09:41) Unknown sulfamethoxazole [From Bactrim] Allergy (Unknown, Verified 09/04/23 09:41) Unknown trimethoprim [From Bactrim] Allergy (Unknown, Verified 09/04/23 09:41) Unknown Medication List - Last Reconciled 09/04/23 by Nick Cisneros MD acetaminophen 1,000 mg (2 x 500 mg) PO Q6H PRN allopurinol 100 mg PO DAILY cholecalciferol (vitamin D3) 1,250 mcg PO QWEEK 30 days hydralazine 10 mg PO BID 30 days levothyroxine 75 mcg PO DAILY propranolol ER 160 mg PO DAILY 90 days valsartan-hydrochlorothiazide 160-12.5 mg 1 tab PO DAILY 30 days Tobacco use date assessed: 09/04/23 Fall risk assessment: No Falls in past year Last assessed Fall Risk: 09/04/23 Dental Screening Dental Screen Date: 09/04/23 Did you have a dental visit in the last 12 months?: Yes Did you have a dental problem in the last 6 months where you did not have access to dental care?: No Was dental information given to patient?: Patient has dentist HPI Return to work clearance HPI Details 78 y/o female presents for clearance to go back to work. Pt is on allopurinol for gout and pt notes this has been helping. She has also been using epsom salts for relief. S/p thyroid lobectomy and pt notes she has healed well. HPI Comments History of Present Illness Details Documentation assistance for Nick Cisneros MD, was provided by Herb Almaraz,? Wrapper Rewinder on 09/04/2023 10:27 AM EST. I, Dr. Cisneros, have read, observed, and verified documentation. [facility] Medical History Erosive (osteo)arthritis Multinodular thyroid Surgical History History of thyroidectomy (~07/14/23) History of surgery History of wisdom tooth extraction Family History Father Heart failure Mother Heart failure Gout Brother No problems noted. Brother No problems noted. Sister No problems noted. Sister No problems noted. Son No problems noted. Son No problems noted. Son No problems noted. Son No problems noted. 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 Lalo Casey, Christina Brown, Dony Cobb and colleagues, with an educational viral from [employer]. Review of Systems Const Denies chills, Denies fatigue, Denies fever(s), Denies headache(s) and Denies weakness ENT Denies dizziness and Denies headache(s) Card Denies dyspnea Resp Denies cough, Denies dyspnea, Denies wheezing and Denies other (shortness of breath) Musc Denies numbness and Denies tingling Neuro Denies dizziness, Denies headache(s), Denies numbness, Denies tingling and Denies weakness Psych Denies anxiety and Denies depression Endo Denies fatigue Aller/Immun Denies wheezing Physical exam (Primary Care) Vital Signs: Last Vital Signs Pulse 67 09/04/23 09:37 BP 126/78 09/04/23 09:37 Pulse Ox 98 09/04/23 09:37 Oxygen Delivery Method Room Air 09/04/23 09:37 BMI result Body Mass Index 22.0 Tobacco/Smoking Status: Tobacco use Status Tobacco use date assessed 09/04/23 09/04/23 09:44 Patient Tobacco Use Status Never used Tobacco 09/04/23 09:44 e-Cigarette/Vaping Use Never Used 09/04/23 09:44 Thrive Assessment: Date of Thrive Assessment Date Thrive assessed 06/20/23 09/04/23 09:44 Const General: well developed; No acute distress Nutritional Appearance: well nourished Orientation/consciousness: patient oriented x3 HENMT Head: Yes normocephalic and Yes atraumatic Eyes General: appearance normal, both eyes and all related structures Pupils: Equal, round and reactive pupils present EOM: EOMs intact bilaterally Resp Effort & Inspection: normal respiratory effort Neuro General: patient oriented x3 and gait normal Cranial nerves: Yes Equal, round and reactive pupils present Psych Affect: normal affect Assessment and Plan Assessment & Plan (1) Status post thyroidectomy: Code(s): E89.0 - Postprocedural hypothyroidism Plan: Scars?well?healed She?is?on?levothyroxine?and?tolerating?well. She?requests?a?note?to?return?to?work?full- time?which?I?will?provide?for?her?today. 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 intial uric acid 7.4 Allopurinol 07/2023 Colchicine 07/2023 DC 07/2023 due to loose stools Code(s): M10.9 - Gout, unspecified Qualifiers: Chronicity: acute Gout etiology: unspecified cause Gout site: hand Laterality: right Qualified Code(s): M10.9 - Gout, unspecified Plan: On?allopurinol?which?is?helping. Right?index?finger?is?still?rather?swollen?and?she?also?uses?warm?soaks?with?Eps om?salt Follow-up?with?rheumatology. Coding Level of Care Code Est Pt Level 3 (64533) Diagnoses Status post thyroidectomy E89.0 Acute gout of right hand, unspecified cause M10.9 Chronicity: acute Gout etiology: unspecified cause Gout site: hand Laterality: right
== END 2023-09-04 10:31 | disposition home or self-care (01) ==
PROVIDERS: PCP Family Medicine; Visit Provider Family Medicine
DX: E89.0 Postprocedural hypothyroidism (principal); M10.9 Gout, unspecified
CPT/HCPCS: 99213

== ENCOUNTER 2023-09-18 12:35 | Outpatient (REF) | payer OTHER, MEDICARE, SELFPAY ==
[2023-09-18 16:45] LABS: Uric Acid 6.6 mg/dL (2.4-5.7)
[2023-09-18 16:51] LABS: Alanine Aminotransferase 9 U/L (0-31); Albumin Level 3.8 g/dL (3.5-5.0); Alkaline Phosphatase 80 U/L (39-117); Anion Gap 13 (12-20); Aspartate Amino Transferase 17 U/L (5-31); Bilirubin Total 0.5 mg/dL (0.0-1.0); Blood Urea Nitrogen 17 mg/dL (9-16); Calcium 9.5 mg/dL (8.4-10.2); Carbon Dioxide 27 mmol/L (22-29); Chloride 102 mmol/L (96-108); Estimated Glomerular Filt Rate 45; Glucose Random 94 mg/dL (60-115); Potassium 3.9 mmol/L (3.3-5.1); Sodium 138 mmol/L (135-145); Total Protein 6.8 g/dL (6.5-8.0)
[2023-09-18 17:08] LABS: Free T4 (Free Thyroxine) 1.52 ng/dL (0.71-1.85); Thyroid Stimulating Hormone 0.75 uIU/mL (0.32-4.0)
== END 2023-09-18 12:36 | disposition home or self-care (01) ==
LOC: HO.HMGCLDS 12:35
PROVIDERS: PCP Family Medicine; Referring Provider Student in an Organized Health Care Education/Training Program; Visit Provider Internal Medicine Endocrinology, Diabetes & Metabolism
DX: E04.2 Nontoxic multinodular goiter (principal); M10.9 Gout, unspecified
CPT/HCPCS: 36415; 80053; 84439; 84443; 84550

== ENCOUNTER 2023-09-19 14:24 | Outpatient (AMB) | payer OTHER, MEDICARE, SELFPAY ==
[2023-09-19 14:48] VITALS: BP 118/58; PULSE 73; O2SAT 100; BMI 22.0
--- NOTE | 2023-09-19 14:48 | A.OFFPC_ITS ---
Vital Signs 09/19/23 14:48 Height 5 ft 1 in Weight 116 lb 6 oz BMI 22.0 BP 118/58 L Blood Pressure Location Lt brachial Position Sitting Pulse 73 Pulse Source Pulse Oximeter Pulse Oximetry (%) 100 Oxygen Delivery Method Room Air Intake Visit Reasons: follow up htn Intake Note: Patient is here to follow up on hypertension today. Allergies Sulfa (Sulfonamide Antibiotics) Allergy (Unknown, Verified 09/19/23 14:50) Unknown sulfamethoxazole [From Bactrim] Allergy (Unknown, Verified 09/19/23 14:50) Unknown trimethoprim [From Bactrim] Allergy (Unknown, Verified 09/19/23 14:50) Unknown Tobacco use date assessed: 09/19/23 Fall risk assessment: No Falls in past year Last assessed Fall Risk: 09/19/23 Dental Screening Dental Screen Date: 09/04/23 HPI follow up htn HPI Details 78 y/o female presents to f/u hypertensi on. Blood pressure today 118/58. She is on valsartan-HCTZ 160-12.5mg, propranolol 160mg daily. Pt reports anxiety/stressors with work place interactions. She notes she feels pressured regarding retiring. HPI Comments History of Present Illness Details Documentation assistance for Nick Cisneros MD, was provided by Herb Almaraz, Children'S Nursery Assistant on 09/19/2023 3:13 PM EST. I, Dr. Cisneros, have read, observed, and verified documentation. [facility] Medical History Erosive (osteo)arthritis Multinodular thyroid Surgical History History of thyroidectomy (~07/14/23) History of surgery History of wisdom tooth extraction Family History Father Heart failure Mother Heart failure Gout Brother No problems noted. Brother No problems noted. Sister No problems noted. Sister No problems noted. Son No problems noted. Son No problems noted. Son No problems noted. Son No problems noted. 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 Lalo Casey, Christina Brown, Dony Cobb and colleagues, with an educational ivral from [employer]. Review of Systems Const Denies chills, Denies fatigue, Denies fever(s), Denies headache(s) and Denies weakness ENT Denies dizziness and Denies headache(s) Card Denies dyspnea Resp Denies cough, Denies dyspnea, Denies wheezing and Denies other (shortness of breath) Musc Denies numbness and Denies tingling Neuro Denies dizziness, Denies headache(s), Denies numbness, Denies tingling and Denies weakness Psych Reports anxiety and Denies depression Endo Denies fatigue Aller/Immun Denies wheezing Physical exam (Primary Care) Vital Signs: Last Vital Signs Pulse 73 09/19/23 14:48 BP 118/58 L 09/19/23 14:48 Pulse Ox 100 09/19/23 14:48 Oxygen Delivery Method Room Air 09/19/23 14:48 BMI result Body Mass Index 22.0 Tobacco/Smoking Status: Tobacco use Status Tobacco use date assessed 09/19/23 09/19/23 14:51 Patient Tobacco Use Status Never used Tobacco 09/19/23 14:51 e-Cigarette/Vaping Use Never Used 09/19/23 14:51 Thrive Assessment: Date of Thrive Assessment Date Thrive assessed 06/20/23 09/19/23 14:51 Const General: well developed; No acute distress Nutritional Appearance: well nourished Orientation/consciousness: patient oriented x3 HENMT Head: Yes normocephalic and Yes atraumatic Eyes General: appearance normal, both eyes and all related structures Pupils: Equal, round and reactive pupils present EOM: EOMs intact bilaterally Resp Effort & Inspection: normal respiratory effort Auscultation: clear to auscultation bilaterally Cardio Rate: regular rate Rhythm: regular rhythm Heart sounds: S1 normal heart sound present, S2 normal heart sound present, no gallops, no murmurs and no rubs Neuro General: patient oriented x3 and gait normal Cranial nerves: Yes Equal, round and reactive pupils present Psych Affect: normal affect Assessment and Plan Assessment & Plan (1) Essential hypertension: Code(s): I10 - Essential (primary) hypertension Plan: Blood?pressure?appears?well?control led.??Had?decreased?valsartan?and?added?hydralazine?to?compensate. Valsartan?was?decreased?due?to?rising?creatinine?level.??Creatinine?was?rechecke d?yesterday?and?is?within?normal?range. (2) Anxiety: Code(s): F41.9 - Anxiety disorder, unspecified Plan: Mild?anxiety?regarding?some?work?place?interactions. Patient?says?she?feels?pressured?regarding?retiring. Offered?to?refer?her?to?a?therapist?and?she?declines.??She?notes?that?she?has?a? relative?who?is?a?psychologist/therapist.??She?wi ll?discuss?potential?coping?strategies?and?relaxation?techniques. She?will?let?me?know?if?she?would?like?a?referral?to?a?therapist?in?the?future. Orders: Orders Comprehensive [place]. Panel Fast Today Z00.00 - Encounter for general adult medical examination without abnormal findings Complete Blood Count Auto Diff Today Z00.00 - Encounter for general adult medical examination without abnormal findings Lipid Panel Today Z00.00 - Encounter for general adult medical examination without abnormal findings Microalbumin, Random (w Creat) Today I10 - Essential (primary) hypertension TSH reflex Free T4 Today Z00.00 - Encounter for general adult medical examination without abnormal findings UA and rflx microscopic Today Z00.00 - Encounter for general adult medical examination without abnormal findings Vitamin D 25-OH Total Today E55.9 - Vitamin D deficiency, unspecified Uric Acid Today M10.9 - Gout, unspecified Coding Level of Care Code Est Pt Level 3 (56237) Diagnoses Essential hypertension I10 Anxiety F41.9
== END 2023-09-19 17:14 | disposition home or self-care (01) ==
PROVIDERS: PCP Family Medicine; Visit Provider Family Medicine
DX: I10 Essential (primary) hypertension (principal); F41.9 Anxiety disorder, unspecified
CPT/HCPCS: 99213

== ENCOUNTER 2023-09-19 15:03 | Outpatient (REF) | payer OTHER, MEDICARE, SELFPAY ==
[2023-09-19 18:57] LABS: Appearance Urine Clear; Color Urine Yellow; Glucose Urine UA Negative (Negative); Leukocyte Esterase Urine Large (3+) (Negative); Nitrite Urine Negative (Negative); Specific Gravity - Urine 1.015 (1.005-1.025); UMIC TRIGGER UA YES; Urine Blood Negative (Negative); Urine Ketones Negative (Negative); Urine Protein Negative (Neg-Trace)
[2023-09-19 19:17] LABS: Bacteria Urine None Seen (None Seen); Hyaline Casts Urine 0-2 /LPF (0-2); RBC Urine 0-2 /HPF (0-2)
== END 2023-09-19 15:04 | disposition home or self-care (01) ==
LOC: HO.LAB 15:03
PROVIDERS: Visit Provider Family Medicine
DX: Z00.00 Encounter for general adult medical examination without abnormal findings (principal)
CPT/HCPCS: 81001; 81003

== ENCOUNTER 2023-10-29 14:08 | Outpatient (AMB) | payer OTHER, MEDICARE, SELFPAY ==
--- NOTE | 2023-10-29 14:02 | MHC.OFFVIS ---
Vital Signs 10/29/23 14:12 Height 5 ft 1 in Weight 118 lb 9.739 oz BMI 22.4 BP 126/62 Blood Pressure Location Rt brachial Position Sitting Pulse 64 Pulse Source Pulse Oximeter Pulse Oximetry (%) 99 Oxygen Delivery Method Room Air Intake Visit Reasons: Gout Intake Note: Patient last seen 09/04/23, presents today for gout follow up. On allopurinol to 100mg qd Enroute Controller Required: No Accompanied by: Self / Same As Patient Allergies Sulfa (Sulfonamide Antibiotics) Allergy (Unknown, Verified 10/29/23 14:14) Unknown sulfamethoxazole [From Bactrim] Allergy (Unknown, Verified 10/29/23 14:14) Unknown trimethoprim [From Bactrim] Allergy (Unknown, Verified 10/29/23 14:14) Unknown Medication List - Last Reconciled 10/29/23 by Tashi Olivarez MD acetaminophen 1,000 mg (2 x 500 mg) PO Q6H PRN allopurinol 200 mg (2 x 100 mg) PO DAILY cholecalciferol (vitamin D3) 1,250 mcg PO QWEEK 30 days hydralazine 10 mg PO BID 30 days levothyroxine 75 mcg PO DAILY propranolol ER 160 mg PO DAILY 90 days valsartan-hydrochlorothiazide 160-12.5 mg 1 tab PO DAILY 30 days HPI Comments Details: 78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 She is on allopurinol 100 mg daily. Well-tolerated has not had any gout flare-ups since last visit. Doing well overall. Initial history: This is a 78-year-old female who was referred from physiatry for evaluation of gout. Patient states that for about a year and half she has noticed deposits yellowish-white deposits on the tip of her right index finger as well as other fingers, rarely she would have pain, she would take Tylenol and it would help. It has not limited her in any way. She denies any history of kidney stones. Patient had thyroidectomy last week, on the day prior to her surgery she started having right hand swelling that progressed to involve her right wrist associated with significant pain, she had her thyroidectomy and was told by hand surgeon that she has gout. She was given some medication while she was admitted with some improvement. She was discharged. She was evaluated today by hardboard panel printer and referred to me for gout evaluation. Patient has been taking a myers extract supplement which she believes it helps. She does not have any pain today. Her mother had gout. She states that she drinks every 2-3 weeks. She would have 1 glass of of wine at most [facility] Medical History Erosive (osteo)arthritis Multinodular thyroid Surgical History History of thyroidectomy (~07/14/23) History of surgery History of wisdom tooth extraction Family History Father Heart failure Mother Heart failure Gout Brother No problems noted. Brother No problems noted. Sister No problems noted. Sister No problems noted. Son No problems noted. Son No problems noted. Son No problems noted. Son No problems noted. 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 Current occupational exposures/hazards: No Cognitive needs: No Hearing needs: No Vision needs: No Review of Systems Musc Reports deformity Physical Exam Vital Signs: Last Vital Signs Pulse 64 10/29/23 14:12 BP 126/62 10/29/23 14:12 Pulse Ox 99 10/29/23 14:12 Oxygen Delivery Method Room Air 10/29/23 14:12 BMI result Body Mass Index 22.4 Const General: cooperative, healthy appearing and comfortable Nutritional Appearance: average body habitus Orientation/consciousness: patient oriented x3 Limitations: no limitations HEENT Head: Yes normocephalic and Yes atraumatic Resp Effort & Inspection: normal respiratory effort Auscultation: clear to auscultation bilaterally Cardio Rate: regular rate Rhythm: regular rhythm Neuro General: patient oriented x3 Extrem Other: Multiple tophi affecting both fingers, most prominent on right index tip. And left index PIP No tophi on ears No active synovitis Results Reviewed Results Reviewed: Right hand x-rays 06/2023 reviewed independently by me and show punched out erosive changes on the radial aspect of the right index finger Assessment & Plan Assessment & Plan (1) Gout: Comment: dx 07/2023 tophaceous. 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 On allopurinol 100 mg daily. Well-tolerated. Uric acid level improving to 6.6. Still not at target. Continues to have tophi. Has not had any gout flare-ups since last visit Increase allopurinol to 200 mg daily Today we went over lifestyle modification for diet including purine content of different foods. Patient will do her best to adhere low purine diet Labs before next visit in 3 months Plan I spent 16 minutes reviewing patient's chart, evaluating patient, ordering diagnostic workup, counseling patient and documenting in the chart Orders: Orders Uric Acid 3 Months M10.9 - Gout, unspecified Comprehensive Met. Panel 3 Months 0. - Gout, unspecified Medications: Changed From allopurinol 100 mg PO DAILY 90 tabs 0RF To allopurinol 200 mg (2 x 100 mg) PO DAILY 180 tabs 0RF Coding Level of Care Code Est Pt Level 3 (68732) Diagnoses Acute gout of right hand, unspecified cause M10.9 Gout site: hand Gout etiology: unspecified cause Chronicity: acute Laterality: right
[2023-10-29 14:12] VITALS: BP 126/62; PULSE 64; O2SAT 99; BMI 22.4
== END 2023-10-29 14:27 | disposition home or self-care (01) ==
PROVIDERS: PCP Family Medicine; Visit Provider Student in an Organized Health Care Education/Training Program
DX: M10.9 Gout, unspecified (principal)
CPT/HCPCS: 99213

== ENCOUNTER → 2023-10-29 14:08 | Outpatient (BNVA) | payer OTHER, MEDICARE, SELFPAY | PROVIDERS: PCP Family Medicine; Visit Provider Student in an Organized Health Care Education/Training Program ==

== ENCOUNTER 2023-11-12 16:28 | Outpatient (AMB) | payer OTHER, MEDICARE, SELFPAY ==
--- NOTE | 2023-11-12 16:30 | MHC.OFFVIS ---
Vital Signs 11/12/23 16:31 Height 5 ft 1 in Weight 121 lb 0.54 oz BMI 22.9 BP 132/66 Blood Pressure Location Lt brachial Position Sitting Pulse 68 Pulse Source Pulse Oximeter Intake Visit Reasons: Thyroid-confirmed does not wan't to come in early Intake Note: Patient present today Thyroid follow up visit. Manager Digital Required: No Accompanied by: Self / Same As Patient Allergies Sulfa (Sulfonamide Antibiotics) Allergy (Unknown, Verified 11/12/23 16:33) Unknown sulfamethoxazole [From Bactrim] Allergy (Unknown, Verified 11/12/23 16:33) Unknown trimethoprim [From Bactrim] Allergy (Unknown, Verified 11/12/23 16:33) Unknown Medication List - Last Reconciled 11/12/23 by Lalo Damon MD acetaminophen 1,000 mg (2 x 500 mg) PO Q6H PRN allopurinol 200 mg (2 x 100 mg) PO DAILY cholecalciferol (vitamin D3) 1,250 mcg PO QWEEK 30 days hydralazine 10 mg PO BID 30 days levothyroxine 75 mcg PO DAILY propranolol ER 160 mg PO DAILY 90 days valsartan-hydrochlorothiazide 160-12.5 mg 1 tab PO DAILY 30 days HPI Comments Details: 78 YO F with no significant PMHx who is seen in F/U for a NTMNG.. Had a recent thyroid US which revealed a large left mid pole 5.4 cm thyroid nodule. Currently denies any dysphagia but does mention hoarseness of voice. Denies sensation of swelling in the neck or difficulty breathing while lying flat. Denies any tenderness in the neck. She underwent a CT of the neck which did reveal enlargement of the L lobe of the thyroid substernal extension and deviation of the trachea to the right. She underwent FNA biopsy of this left mid pole 5.4 cm thyroid nodule 09/19/2022 with benign cytology. Denies any symptoms of hyper or hypothyroidism. Denies any history of head or neck irradiation. Denies any family history of thyroid cancer. Thyroid US: 06/05/2022 Right Thyroid Lobe: 4.5 x 1.6 x 1.2 cm, volume 4.3 mL. Parenchyma: The gland echotexture is homogeneous. Thyroid vascularity is normal. Left Thyroid Lobe: 6.3 x 3.5 x 4.1 cm, volume 47.0 mL. Parenchyma: The gland echotexture is homogeneous. Thyroid vascularity is increased. Isthmus: 0.3 cm in maximum AP dimension. Estimated total number of nodules greater than or equal to 1 cm: 1. 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 Location: Right lower pole. ?? ? Size: 0.9 x 0.6 x 0.7 cm, volume 0.20 mL. ?? ? Nodule characteristics: ?? ? Composition: Spongiform (0). ?? ? ACR TI-RADS total points: 0 ?? ? ACR TI-RADS category: 1 2. Location: Right lower pole. ?? ? Size: 0.5 x 0.3 x 0.4 cm, volume 0.03 mL. ?? ? Nodule characteristics: ?? ? Composition: Cystic(0). ?? ? ACR TI-RADS total points: 0 ?? ? ACR TI-RADS category: 1 3. Location: Right mid pole. ?? ? Size: 0.6 x 0.5 x 0.5 cm, volume 0.08 mL. ?? ? Nodule characteristics: ?? ? Composition: Spongiform (0). ?? ? ACR TI-RADS total points: 0 ?? ? ACR TI-RADS category: 1 4. Location: Left mid/lower pole. ?? ? Size: 5.4 x 3.0 x 4.1 cm, volume 35.0 mL. ?? ? Nodule characteristics: ?? ? Composition: Solid/almost completely solid (2). ?? ? Echogenicity: Hyperechoic (1). ?? ? Shape: Not taller than wide (0). ?? ? Margins: Smooth (0). ?? ? Echogenic Foci: None (0). While there are regions of hyperechogenicity there are no definite punctate echogenic foci. ?? ? ACR TI-RADS total points: 3 ?? ? ACR TI-RADS category: 3 NODES: No lymphadenopathy is seen in the tissue surrounding the thyroid gland. CT Neck: 06/25/2022 FINDINGS: Skull Base: Grossly intact. 1.6 cm probable retention cysts with dystrophic calcification along the floor of the left maxillary sinus. Limited assessment of the included intracranial structures. No acute process. Visualized intraorbital soft tissues are within normal limits. Suprahyoid Neck: Nasopharynx, retropharynx, faculty research physician and parapharyngeal spaces appear grossly within normal limits. The major salivary glands are normal in morphology and attenuation. The oropharynx is smoothly contoured. There is a small calcified tonsillolith in the right palatine tonsil. The visualized oral tongue, base of the tongue and floor of the mouth structures appear symmetric. Lingual tonsils appear grossly unremarkable with a normal appearance to the epiglottis within the limitations of the study. No lymphadenopathy identified. Multiple scattered, normal-sized bilateral IJ chain and subarticular space lymph nodes are seen. Infrahyoid Neck: The hypopharynx and larynx appear grossly within normal limits. There is asymmetric enlargement of the left thyroid lobe with a heterogeneous appearance to the right thyroid lobe. Findings are consistent with the previously noted 5.4 cm left thyroid lobe nodule, with caudal extension into the superior mediastinum, with deviation of the trachea to the right without tracheal narrowing. This encroaches on the left tracheoesophageal groove. A few small, scattered, normal-sized bilateral IJ chain lymph nodes and level Vb lymph nodes are seen bilaterally. Small, normal-sized level Va lymph node on the left. Upper Chest: Visualized lung parenchyma is within normal limits. The visualized mediastinum is otherwise within normal limits. Skeletal: Multilevel cervical DDD and spondylosis is noted. Possible tiny bone island in the T3 vertebral body. Mild upper thoracic levocurvature noted. Other Comments: None. CT/CT soft tissue neck wo IV con IMPRESSION: 1.? Large left thyroid lobe nodule with caudal extension into the superior mediastinum with deviation of the trachea to the right and encroachment on the left tracheoesophageal groove without tracheal narrowing. ? 2.? No cervical lymphadenopathy identified within the limitations of a noncontrast exam. ? 3.? Probable retention cyst with dystrophic calcification along the floor of the left maxillary sinus. ? 4.? Cervical degenerative changes. ? 5.? Small calcified tonsillolith in the right palatine tonsil. ? 6.? Tiny sclerotic focus in the T3 vertebral body. Statistically, this is most likely a small bone island. If there is any clinical concern for malignancy, then radionuclide skeletal scintigraphy correlation would be recommended. Labs: Laboratory Tests 05/21/22 12:45 TSH 1.66 Free T4 1.23 she is status post left lobectomy with benign pathology on 07/14/[address] Samuel . Currently on 75 mcg levothyroxine [facility] Medical History Erosive (osteo)arthritis Multinodular thyroid Surgical History History of thyroidectomy (~07/14/23) History of surgery History of wisdom tooth extraction Family History Father Heart failure Mother Heart failure Gout Brother No problems noted. Brother No problems noted. Sister No problems noted. Sister No problems noted. Son No problems noted. Son No problems noted. Son No problems noted. Son No problems noted. 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 Current occupational exposures/hazards: No Cognitive needs: No Hearing needs: No Vision needs: No Physical Exam Vital Signs: Last Vital Signs Pulse 68 11/12/23 16:31 BP 132/66 11/12/23 16:31 BMI result Body Mass Index 22.9 Const Other: Healing scar status post left lobectomy Assessment & Plan Assessment & Plan (1) Multinodular thyroid: Comment: 5.5 cm left thyroid lobe nodule with benign FNA cytology status post left thyroid lobectomy performed 07/14/[address] Briana Samuel Code(s): E04.2 - Nontoxic multinodular goiter Category: Medical Plan: This is a 78-year-old white female with a history of multinodular goiter status post left lobectomy with benign pathology. She appears to be clinically and biochemically euthyroid on 75 mcg levothyroxine Plan is to continue the current therapy. At this point, patient can follow up with the primary care provider returned to endocrinology as needed Coding Level of Care Code Est Pt Level 3 (10854) Diagnoses Multinodular thyroid E04.2
[2023-11-12 16:31] VITALS: BP 132/66; PULSE 68; BMI 22.9
== END 2023-11-12 16:44 | disposition home or self-care (01) ==
PROVIDERS: PCP Family Medicine; Visit Provider Internal Medicine Endocrinology, Diabetes & Metabolism
DX: E04.2 Nontoxic multinodular goiter (principal)
CPT/HCPCS: 99213

== ENCOUNTER → 2023-11-12 16:28 | Outpatient (BNVA) | payer OTHER, MEDICARE, SELFPAY | PROVIDERS: PCP Family Medicine; Visit Provider Internal Medicine Endocrinology, Diabetes & Metabolism ==

== ENCOUNTER 2023-12-25 12:06 | Outpatient (AMB) | payer OTHER, MEDICARE, SELFPAY ==
--- NOTE | 2023-12-25 12:30 | A.OFFPC_ITS ---
Vital Signs 12/25/23 12:33 Height 5 ft 1 in Weight 119 lb 4 oz BMI 22.5 BP 130/88 Blood Pressure Location Lt brachial Position Sitting Respiration 16 Pulse 59 Pulse Source Pulse Oximeter Pulse Oximetry (%) 96 Oxygen Delivery Method Room Air Intake Visit Reasons: sick letter needed for work Intake Note: Needs a leave of absence note. [facility] wants her to take time off because she is forgetting things and making minor mistakes. Allergies Sulfa (Sulfonamide Antibiotics) Allergy (Unknown, Verified 11/12/23 16:33) Unknown sulfamethoxazole [From Bactrim] Allergy (Unknown, Verified 11/12/23 16:33) Unknown trimethoprim [From Bactrim] Allergy (Unknown, Verified 11/12/23 16:33) Unknown Tobacco use date assessed: 09/19/23 Dental Screening Dental Screen Date: 09/04/23 HPI sick letter needed for work HPI Details Patient is a 78-year-old female with a significant past medical history of hypertension, hyperlipidemia, hypothyroidism s/p thyroidectomy presenting today for a work note. She states that her boss told her to schedule an appointment with her PCP to get a letter to take some time off. She states that it feels like her job is harassing her about continuing to work. She is stressed going into work because she is terrified that she is going to make a mistake. She states that they school that her about the amount of times she contacted the IT department because she could not remember her password. She states that they then sent her to a neurologist to be evaluated for her memory and she was told that everything was normal. She states she does not understand what the big deal is for calling IT because she figured that that is why they have jobs. 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 She states that her boss specifically called each department to ask how many times she has sent calls. She does not believe she is keeping track of any other beating machine operator's. A co-worker also went up to her and told her that she was hired in told that she could have her job as soon as she retired. She states numerous times her boss has asked her when she is going to retire. She states that she has also made comments about ?why are you still working??. She is here today because she states that she has about 5-6 months of sick time available and her boss highly encouraged her to take time off to rest. She states that with the amount of harassment she has faced regarding her age and still working she is stressed and states that she does want to take some time off to deal with her stress/anxiety. She states that it sometimes makes her sick thinking about going to work and such a place like this. She has worked 38 years for the [employer] [facility] [employer] [employer] Medical History (Updated 12/25/23 @ 13:32 by Julianna Li PA-C) HTN (hypertension) Erosive (osteo)arthritis Multinodular thyroid Surgical History History of thyroidectomy (~07/14/23) History of surgery History of wisdom tooth extraction Family History (Updated 12/25/23 @ 12:39 by Inna Meehan CMA) Father Heart failure Mother Heart failure Gout Brother No problems noted. Brother No problems noted. Sister Breast cancer Asthma Sister No problems noted. Son No problems noted. Son No problems noted. Son No problems noted. Son No problems noted. 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 1. Little interest or pleasure in doing things: not at all 2. Feeling down, depressed, or hopeless: not at all 3. Trouble falling or staying asleep, or sleeping too much: several days 4. Feeling tired or having little energy: several days 5. Poor appetite or overeating: several days 6. Feeling bad about yourself - or that you are a failure or have let yourself or your family down: not at all 7. Trouble concentrating on things, such as reading the newspaper or watching television: not at all 8. Moving or speaking so slowly that other people could have noticed. Or the opposite - being so fidgety or restless that you have been moving around a lot more than usual: not at all 9. Thoughts that you would be better off or of hurting yourself in some way: not at all Total score: 3 Depression Screening Interpretation: Positive Depression Screening Done: Yes 05391 - PHQ-9 Billing: Yes Source: Developed by Drs. Lalo Casey, Christina Brown, Dony Cobb and colleagues, with an educational viral from [employer]. Thrive Questionnaire Date Thrive assessed: 12/25/23 I am a: Patient What is your living situation today?: I have a steady place to live Within the past 12 months, did the food you bought not last and you didn't have the money to get more?: Never true Within the past 12 months, did you worry whether your food would run out before you got money to buy more?: Never true Do you have trouble paying for medicines?: No Do you have trouble getting transportation to medical appointments?: No Do you have trouble paying your heating and electricity bill?: No Do you have trouble taking care of your child, family member or friend?: No Do you have trouble with day-to-day activities such as bathing, preparing meals, shopping, managing finances, etc.?: No Are you currently unemployed and looking for a job?: No Are you interested in more education?: No Please select the resources that you would like help with: None Currently or been in a relationship where the following occur: No concerns reported THRIVE Score: 0 GASPER-7 AMB Questionnaire GASPER-7 Date GASPER - 7 assessed: 12/25/23 Feeling nervous, anxious, or on edge: 0 = Not at all Not being able to stop or control worryin = Not at all Worrying too much about different things: 0 = Not at all Trouble relaxin = Not at all Being so restless that it is hard to sit still: 0 = Not at all Becoming easily annoyed or irritable: 0 = Not at all Feeling afraid as if something awful might happen: 0 = Not at all Total GASPER-7 score (0-4 normal; 5-9 mild; 10-14 moderate; 15-21 severe): 0 Source: Developed by Drs. Lalo Casey, Christina Brown, Dony Cobb and colleagues, with an educational viral from [employer]. GASPER-7 Assessment Billing GASPER-7 Assessment Tool: GASPER-7 Assessment 58911 Physical exam (Primary Care) Vital Signs: Last Vital Signs Pulse 59 12/25/23 12:33 Resp 16 12/25/23 12:33 BP 130/88 12/25/23 12:33 Pulse Ox 96 12/25/23 12:33 Oxygen Delivery Method Room Air 12/25/23 12:33 BMI result Body Mass Index 22.5 Tobacco/Smoking Status: Tobacco use Status Tobacco use date assessed 09/19/23 12/25/23 12:40 Patient Tobacco Use Status Never used Tobacco 12/25/23 12:40 e-Cigarette/Vaping Use Never Used 12/25/23 12:40 PHQ-9: PHQ-9 Score PHQ-9: Total score 3 12/25/23 12:40 Depression Screening Interpretation: Positive Thrive Assessment: Date of Thrive Assessment Date Thrive assessed 12/25/23 12/25/23 12:40 Currently or been in a relationship where the following occur: No concerns reported Const Orientation/consciousness: patient oriented x3 HENMT Ears: hearing grossly normal bilaterally Neck Lymphatic: no lymphadenopathy noted Resp Auscultation: clear to auscultation bilaterally Cardio Rate: regular rate Rhythm: regular rhythm Heart sounds: S1 normal heart sound present and S2 normal heart sound present GI Rectal Exam - Female: deferred Skin General skin exam: no rashes or lesions noted Neuro General: patient oriented x3, gait normal and no focal motor deficits Assessment and Plan Assessment & Plan (1) Situational anxiety: Code(s): F41.8 - Other specified anxiety disorders Plan: Work note provided. I have encouraged patient to speak with HR regarding her fears and to also make sure that she is covered. (2) Essential hypertension: Code(s): I10 - Essential (primary) hypertension Plan: Blood pressure is WNL. Continue current regimen of propranolol, valsartan/hydrochlorothiazide. Coding Level of Care Code Est Pt Level 4 (98187) Diagnoses Situational anxiety F41.8 Essential hypertension I10 Additional Codes GASPER-7 Assessment Billing - GASPER-7 Assessment Tool: GASPER-7 Assessment 74405 ([id number])
[2023-12-25 12:33] VITALS: BP 130/88; PULSE 59; RESP 16; O2SAT 96; BMI 22.5
== END 2023-12-25 13:30 | disposition home or self-care (01) ==
PROVIDERS: PCP Family Medicine; Visit Provider Physician Assistant
DX: F41.8 Other specified anxiety disorders (principal); I10 Essential (primary) hypertension
CPT/HCPCS: 96127; 99214

== ENCOUNTER 2024-01-07 07:49 | Outpatient (REF) | payer OTHER, MEDICARE, SELFPAY ==
[2024-01-07 10:34] LABS: Appearance Urine Clear; Color Urine Yellow; Glucose Urine UA Negative (Negative); Leukocyte Esterase Urine Large (3+) (Negative); Nitrite Urine Negative (Negative); UMIC TRIGGER UA YES; Urine Blood Negative (Negative); Urine Ketones Negative (Negative); Urine Protein Negative (Neg-Trace)
[2024-01-07 10:38] LABS: Bacteria Urine None Seen (None Seen); Hyaline Casts Urine 0-2 /LPF (0-2); RBC Urine 0-2 /HPF (0-2)
[2024-01-07 11:29] LABS: MANUAL DIFF FLAG NO
[2024-01-07 11:33] LABS: Basophils Absolute Auto 0.1 X10*3/uL (0.0-0.2); Basophils Percent Auto 1.3 % (0-2); Eosinophils Absolute Auto 0.5 X10*3/uL (0.0-0.4); Eosinophils Percent Auto 6.9 % (0-4); Hemoglobin 13.6 g/dl (12.0-16.0); Imm Gran Abs Auto 0.04 X10*3/uL (0.00-0.03); Imm Gran Pct Auto 0.6 % (0.0-0.4); Lymphocytes Absolute Auto 2.6 X10*3/uL (1.2-4.9); Lymphocytes Percent Auto 36.1 % (20-40); Mean Corpuscular Hemoglobin 31.3 pg (27.0-33.0); Mean Corpuscular Volume 92.2 fL (80.0-98.0); Mean Platelet Volume 9.8 fL (9.4-12.3); Monocytes Absolute Auto 0.7 X10*3/uL (0.1-1.2); Monocytes Percent Auto 9.3 % (2-11); Neutrophils Absolute Auto 3.3 x10*3/uL (2.0-8.3); Neutrophils Percent Auto 45.8 % (45-73); Platelet Count 359 X10*3/uL (160-400); Red Blood Count 4.34 X10*6/uL (4.20-5.50); Red Cell Distribution Width 13.7 % (11.0-16.0); White Blood Count 7.1 X10*3/uL (4.8-10.8)
[2024-01-07 12:32] LABS: Creatinine Urine 71.61 mg/dL; Microalbum/Creatinine Ratio Ur 16.7 ug/mg cr (<30)
[2024-01-07 12:58] LABS: Alanine Aminotransferase 11 U/L (0-31); Albumin Level 3.7 g/dL (3.5-5.0); Alkaline Phosphatase 82 U/L (39-117); Anion Gap 10 (12-20); Aspartate Amino Transferase 21 U/L (5-31); Bilirubin Total 0.4 mg/dL (0.0-1.0); Blood Urea Nitrogen 19 mg/dL (9-16); Calcium 9.5 mg/dL (8.4-10.2); Carbon Dioxide 28 mmol/L (22-29); Chloride 106 mmol/L (96-108); Cholesterol 244 mg/dL (<200); Estimated Glomerular Filt Rate 42; Glucose Fasting 91 mg/dL (60-99); HDL Cholesterol 73 mg/dL (>40); LDL Cholesterol Calculated 149 mg/dL (<100); Potassium 3.8 mmol/L (3.3-5.1); Sodium 140 mmol/L (135-145); Total Protein 6.6 g/dL (6.5-8.0); Triglycerides 111 mg/dL (<150); Uric Acid 6.6 mg/dL (2.4-5.7)
[2024-01-07 13:04] LABS: Vitamin D 25-OH Total 73.7 ng/mL (>30)
== END 2024-01-07 07:50 | disposition home or self-care (01) ==
LOC: HO.HMGCLDS 07:49
PROVIDERS: PCP Family Medicine; Visit Provider Family Medicine
DX: Z00.00 Encounter for general adult medical examination without abnormal findings (principal); E55.9 Vitamin D deficiency, unspecified; I10 Essential (primary) hypertension; M10.9 Gout, unspecified
CPT/HCPCS: 36415; 80053; 80061; 81001; 82043; 82306; 82570; 84443; 84550; 85025

== ENCOUNTER 2024-01-08 15:26 | Outpatient (AMB) | payer OTHER, MEDICARE, SELFPAY ==
--- NOTE | 2024-01-08 15:35 | MHC.PC.OV ---
Vital Signs 01/08/24 15:37 Height 5 ft 1 in Weight 121 lb 6 oz BMI 22.9 BP 102/68 Blood Pressure Location Lt brachial Position Sitting Pulse 60 Pulse Source Pulse Oximeter Pulse Oximetry (%) 98 Oxygen Delivery Method Room Air Intake Visit Reasons: Extended exam with f/u labs and health maint. Intake Note: Physical Policy Issue Clerk Required: No Allergies Sulfa (Sulfonamide Antibiotics) Allergy (Unknown, Verified 11/12/23 16:33) Unknown sulfamethoxazole [From Bactrim] Allergy (Unknown, Verified 11/12/23 16:33) Unknown trimethoprim [From Bactrim] Allergy (Unknown, Verified 11/12/23 16:33) Unknown Medication List - Last Reconciled 01/08/24 by Julianna Li PA-C acetaminophen 1,000 mg (2 x 500 mg) PO Q6H PRN allopurinol 200 mg (2 x 100 mg) PO DAILY cholecalciferol (vitamin D3) 1,250 mcg PO QWEEK 30 days hydralazine 10 mg PO BID 30 days levothyroxine 75 mcg PO DAILY propranolol ER 160 mg PO DAILY 90 days valsartan-hydrochlorothiazide 160-12.5 mg 1 tab PO DAILY 30 days Tobacco use date assessed: 09/19/23 Dental Screening Dental Screen Date: 09/04/23 HPI Extended exam with f/u labs and health maint. HPI Details Patient is a 78-year-old female with a significant past medical history of hyperlipidemia, gout, hypertension, renal insufficiency, hypothyroidism s/p thyroidectomy , anxiety and arthritis presenting today for a follow up/physical exam. CV: Blood pressure today in the office is 102/68. She is on propranolol, valsartan/hydrochlorothiazide and hydralazine. Cholesterol has been diet controlled. Last lipids were elevated due to increased ice cream intake over summer. She does not want any medication. Endo: Remains on levothyroxine 75 mcg. Last TSH was WNL. Musculoskeletal: On allopurinol 200 mg daily. Uric acid was elevated. Tylenol as needed. Seeing rheumatology next week. Psych: Recently took PFMLA for anxiety related to work. Has been dealing with a lot of stressors about feeling targeted and ?harassed? to retire. Mammo: 2020 Colonoscopy: 2020 - cologuard Bone density: 2020-osteopenia [facility] Medical History (Updated 01/08/24 @ 16:00 by Julianna Li PA-C) HTN (hypertension) Erosive (osteo)arthritis Multinodular thyroid Surgical History History of thyroidectomy (~07/14/23) History of surgery History of wisdom tooth extraction Family History (Updated 12/25/23 @ 12:39 by Inna Meehan CMA) Father Heart failure Mother Heart failure Gout Brother No problems noted. Brother No problems noted. Sister Breast cancer Asthma Sister No problems noted. Son No problems noted. Son No problems noted. Son No problems noted. Son No problems noted. 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 Current occupational exposures/hazards: No Cognitive needs: No Hearing needs: No Vision needs: No Questionnaire Thrive Questionnaire Date Thrive assessed: 12/25/23 I am a: Patient What is your living situation today?: I have a steady place to live Within the past 12 months, did the food you bought not last and you didn't have the money to get more?: Never true Within the past 12 months, did you worry whether your food would run out before you got money to buy more?: Never true Do you have trouble paying for medicines?: No Do you have trouble getting transportation to medical appointments?: No Do you have trouble paying your heating and electricity bill?: No Do you have trouble taking care of your child, family member or friend?: No Do you have trouble with day-to-day activities such as bathing, preparing meals, shopping, managing finances, etc.?: No Are you currently unemployed and looking for a job?: No Are you interested in more education?: No Please select the resources that you would like help with: None Currently or been in a relationship where the following occur: No concerns reported THRIVE Score: 0 AUDIT C Alcohol Use Questionnaire (AUDIT-C) 1. How often do you have a drink containing alcohol?: 2-4 times a month 2. How many drinks containing alcohol do you have on a typical day when you are drinking?: 1 or 2 3. How often do you have six or more drinks on one occasion?: Weekly Total Score: 5 Score Reviewed/Action Taken: Yes GASPER-7 AMB Questionnaire GASPER-7 Date GASPER - 7 assessed: 12/25/23 Feeling nervous, anxious, or on edge: 2 = More than half the days Not being able to stop or control worryin = Several days Worrying too much about different things: 1 = Several days Trouble relaxin = Not at all Being so restless that it is hard to sit still: 0 = Not at all Becoming easily annoyed or irritable: 0 = Not at all Feeling afraid as if something awful might happen: 0 = Not at all Total GASPER-7 score (0-4 normal; 5-9 mild; 10-14 moderate; 15-21 severe): 4 Source: Developed by Drs. Lalo Casey, Christina Brown, Dony Cobb and colleagues, with an educational viral from [employer]. GASPER-7 Assessment Billing GASPER-7 Assessment Tool: GASPER-7 Assessment 05984 Physical exam (Primary Care) Vital Signs: Last Vital Signs Pulse 60 01/08/24 15:37 BP 102/68 01/08/24 15:37 Pulse Ox 98 01/08/24 15:37 Oxygen Delivery Method Room Air 01/08/24 15:37 BMI result Body Mass Index 22.9 Tobacco/Smoking Status: Tobacco use Status Tobacco use date assessed 09/19/23 01/08/24 15:36 Patient Tobacco Use Status Never used Tobacco 01/08/24 15:36 e-Cigarette/Vaping Use Never Used 01/08/24 15:36 Thrive Assessment: Date of Thrive Assessment Date Thrive assessed 12/25/23 01/08/24 15:36 Currently or been in a relationship where the following occur: No concerns reported Const Orientation/consciousness: patient oriented x3 HENMT Ears: hearing grossly normal bilaterally and TM's normal bilaterally General nose exam: No nasal polyps present Face and sinus: Yes sinuses nontender Mouth: Normal oral and palatal mucosa present Eyes Pupils: Equal, round and reactive pupils present EOM: EOMs intact bilaterally Neck Neck: Yes full ROM and Yes no lymphadenopathy Chest Chest palpation & inspection: normal inspection of the chest Resp Auscultation: clear to auscultation bilaterally Cardio Rate: regular rate Rhythm: regular rhythm Heart sounds: S1 normal heart sound present and S2 normal heart sound present Peripheral pulses: Peripheral pulses 2+ throughout GI Other: Soft, nontender Auscultation: normal bowel sounds Rectal Exam - Female: deferred General: Yes no CVA tenderness Back/Spine/Pelvis Other: Nontender Back: no CVA tenderness Skin General skin exam: no rashes or lesions noted Neuro General: patient oriented x3, gait normal, CN's II-XI intact bilaterally and deep tendon reflexes 2+ bilaterally Cranial nerves: Yes Equal, round and reactive pupils present Motor exam (neuro): 5/5 motor strength present throughout Sensory Exam: double simultaneous stimulation for sensation normal Coordination: [id number] test normal and Romberg test negative Extrem General: Yes normal to inspection and Yes full ROM Psych Affect: normal affect Attitude: cooperative Thought process: Normal thought process present Thought content: Normal thought content present Insight: Good insight present (Psych) Judgement: Good judgement present (Psych) Results Reviewed Results Reviewed: Laboratory Tests 09/18/23 01/07/24 12:39 08:03 WBC 7.1 RBC 4.34 Hgb 13.6 Hct 40.0 Plt Count 359 D Sodium 140 Potassium 3.8 Chloride 106 Carbon Dioxide 28 Anion Gap 10 L BUN 19 H Creatinine 1.24 Estimated GFR 45 42 Fasting Glucose 91 Uric Acid 6.6 H Calcium 9.5 AST 21 ALT 11 Alkaline Phosphatase 82 Triglycerides 111 Cholesterol 244 H LDL Cholesterol, Calc 149 H HDL Cholesterol 73 25-OH Vitamin D Total 73.7 TSH 0.70 Assessment and Plan Assessment & Plan (1) Routine general medical examination at a health care facility: Code(s): Z00.00 - Encounter for general adult medical examination without abnormal findings Plan: reviewed labs reviewed (2) Essential hypertension: Code(s): I10 - Essential (primary) hypertension Plan: bp wnl. continue current treatment (3) Osteopenia: Code(s): M85.80 - Other specified disorders of bone density and structure, unspecified site Qualifiers: Osteopenia location: unspecified Qualified Code(s): M85.80 - Other specified disorders of bone density and structure, unspecified site Plan: Bone density ordered (4) Situational anxiety: Code(s): F41.8 - Other specified anxiety disorders Plan: stable. doing better out of work (5) Renal insufficiency: Code(s): N28.9 - Disorder of kidney and ureter, unspecified Plan: stable. avoids nsaids Orders: Orders XR DEXA axial skeleton Today Z78.0 - Asymptomatic menopausal state Comprehensive [place]. Panel Fast Today I10 - Essential (primary) hypertension, M85.80 - Other specified disorders of bone density and structure, unspecified site, N28.9 - Disorder of kidney and ureter, unspecified Lipid Panel 6 Months I10 - Essential (primary) hypertension, M85.80 - Other specified disorders of bone density and structure, unspecified site, N28.9 - Disorder of kidney and ureter, unspecified TSH reflex Free T4 6 Months I10 - Essential (primary) hypertension, M85.80 - Other specified disorders of bone density and structure, unspecified site, N28.9 - Disorder of kidney and ureter, unspecified Medications: Changed From hydralazine 10 mg PO BID 30 days 60 tabs 2RF To hydralazine 10 mg PO BID 90 days 180 tabs 2RF Coding Level of Care Code Est Pt Prev Care >65y(66559) Diagnoses Routine general medical examination at a health care facility Z00.00 Essential hypertension I10 Osteopenia, unspecified location M85.80 Osteopenia location: unspecified Situational anxiety F41.8 Renal insufficiency N28.9 Additional Codes GASPER-7 Assessment Billing - GASPER-7 Assessment Tool: GASPER-7 Assessment [id number] ([id number])
[2024-01-08 15:37] VITALS: BP 102/68; PULSE 60; O2SAT 98; BMI 22.9
== END 2024-01-08 16:13 | disposition home or self-care (01) ==
PROVIDERS: PCP Family Medicine; Visit Provider Physician Assistant
DX: Z00.00 Encounter for general adult medical examination without abnormal findings (principal); I10 Essential (primary) hypertension; M85.80 Other specified disorders of bone density and structure, unspecified site; F41.8 Other specified anxiety disorders; N28.9 Disorder of kidney and ureter, unspecified
CPT/HCPCS: 99397

== ENCOUNTER 2024-01-29 09:58 | Outpatient (REF) | payer OTHER, MEDICARE, SELFPAY ==
[2024-01-29 13:55] LABS: Alanine Aminotransferase 11 U/L (0-31); Albumin Level 3.8 g/dL (3.5-5.0); Alkaline Phosphatase 86 U/L (39-117); Anion Gap 13 (12-20); Aspartate Amino Transferase 18 U/L (5-31); Bilirubin Total 0.4 mg/dL (0.0-1.0); Blood Urea Nitrogen 19 mg/dL (9-16); Calcium 9.9 mg/dL (8.4-10.2); Carbon Dioxide 27 mmol/L (22-29); Chloride 105 mmol/L (96-108); Estimated Glomerular Filt Rate 40; Glucose Fasting 93 mg/dL (60-99); Glucose Random 92 mg/dL (60-115); Potassium 3.9 mmol/L (3.3-5.1); Sodium 141 mmol/L (135-145); Total Protein 6.7 g/dL (6.5-8.0)
[2024-01-29 13:58] LABS: Uric Acid 6.1 mg/dL (2.4-5.7)
== END 2024-01-29 09:59 | disposition home or self-care (01) ==
LOC: HO.HMGCLDS 09:58
PROVIDERS: PCP Physician Assistant; Referring Provider Student in an Organized Health Care Education/Training Program; Visit Provider Physician Assistant
DX: M10.9 Gout, unspecified (principal); I10 Essential (primary) hypertension; M85.80 Other specified disorders of bone density and structure, unspecified site; N28.9 Disorder of kidney and ureter, unspecified
CPT/HCPCS: 36415; 80053; 84550

== ENCOUNTER 2024-02-02 14:16 | Outpatient (AMB) | payer OTHER, MEDICARE, SELFPAY ==
[2024-02-02 14:23] VITALS: BP 116/58; BMI 22.5
--- NOTE | 2024-02-02 14:23 | MHC.OFFVIS ---
Vital Signs 02/02/24 14:23 Height 5 ft 1 in Weight 119 lb BMI 22.5 BP 116/58 L Blood Pressure Location Lt brachial Position Sitting Intake Visit Reasons: Gout Intake Note: Patient is here for gout on right hand and left foot. Allergies Sulfa (Sulfonamide Antibiotics) Allergy (Unknown, Verified 02/02/24 14:24) Unknown sulfamethoxazole [From Bactrim] Allergy (Unknown, Verified 02/02/24 14:24) Unknown trimethoprim [From Bactrim] Allergy (Unknown, Verified 02/02/24 14:24) Unknown Medication List - Last Reconciled 02/02/24 by Tashi Olivarez MD acetaminophen 1,000 mg (2 x 500 mg) PO Q6H PRN allopurinol 200 mg (2 x 100 mg) PO DAILY cholecalciferol (vitamin D3) 1,250 mcg PO QWEEK 30 days hydralazine 10 mg PO BID 90 days levothyroxine 75 mcg PO DAILY propranolol ER 160 mg PO DAILY 90 days valsartan-hydrochlorothiazide 160-12.5 mg 1 tab PO DAILY 30 days HPI Comments Details: 78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 She is on allopurinol 200 mg daily. Well-tolerated has not had any gout flare-ups since last visit. She continues to to have tophi on her fingers that her if she bumps it. Initial history: This is a 78-year-old female who was referred from physiatry for evaluation of gout. Patient states that for about a year and half she has noticed deposits yellowish-white deposits on the tip of her right index finger as well as other fingers, rarely she would have pain, she would take Tylenol and it would help. It has not limited her in any way. She denies any history of kidney stones. Patient had thyroidectomy last week, on the day prior to her surgery she started having right hand swelling that progressed to involve her right wrist associated with significant pain, she had her thyroidectomy and was told by hand surgeon that she has gout. She was given some medication while she was admitted with some improvement. She was discharged. She was evaluated today by couturiere and referred to me for gout evaluation. Patient has been taking a myers extract supplement which she believes it helps. She does not have any pain today. Her mother had gout. She states that she drinks every 2-3 weeks. She would have 1 glass of of wine at most [facility] Medical History HTN (hypertension) Erosive (osteo)arthritis Multinodular thyroid Surgical History History of thyroidectomy (~07/14/23) History of surgery History of wisdom tooth extraction Family History Father Heart failure Mother Heart failure Gout Brother No problems noted. Brother No problems noted. Sister Breast cancer Asthma Sister No problems noted. Son No problems noted. Son No problems noted. Son No problems noted. Son No problems noted. 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 Current occupational exposures/hazards: No Cognitive needs: No Hearing needs: No Vision needs: No Review of Systems Musc Denies arthralgias, Denies joint swelling and Denies stiffness Physical Exam Vital Signs: Last Vital Signs BP 116/58 L 02/02/24 14:23 BMI result Body Mass Index 22.5 Const General: cooperative, healthy appearing and comfortable Nutritional Appearance: average body habitus Orientation/consciousness: patient oriented x3 Limitations: no limitations HEENT Head: Yes normocephalic and Yes atraumatic Resp Effort & Inspection: normal respiratory effort Auscultation: clear to auscultation bilaterally Cardio Rate: regular rate Rhythm: regular rhythm Neuro General: patient oriented x3 Extrem Other: Multiple tophi affecting both fingers, most prominent on right index tip. And left index PIP No tophi on ears No active synovitis Results Reviewed Results Reviewed: Right hand x-rays 06/2023 reviewed independently by me and show punched out erosive changes on the radial aspect of the right index finger Assessment & Plan Assessment & Plan (1) Gout: Comment: dx 07/2023 tophaceous. 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 On allopurinol 200 mg daily. Well-tolerated. Uric acid level improving to 6.1. Still not at target. Continues to have prominent tophi. Has not had any gout flare-ups since last visit Increase allopurinol to 300 mg daily Labs before next visit in 3 months Plan I spent 16 minutes reviewing patient's chart, evaluating patient, ordering diagnostic workup, counseling patient and documenting in the chart Orders: Orders Basic Metabolic Panel 3 Months - Gout, unspecified Uric Acid 3 Months . - Gout, unspecified Medications: New allopurinol 300 mg PO DAILY 90 tabs 0RF Discontinued allopurinol Discontinued Reason: Doctor's Order 200 mg (2 x 100 mg) PO DAILY 180 tabs 0RF Coding Level of Care Code Est Pt Level 3 (48252) Diagnoses Acute gout of right hand, unspecified cause M10.9 Gout site: hand Gout etiology: unspecified cause Chronicity: acute Laterality: right
== END 2024-02-02 15:00 | disposition home or self-care (01) ==
PROVIDERS: PCP Family Medicine; Visit Provider Student in an Organized Health Care Education/Training Program
DX: M10.9 Gout, unspecified (principal)
CPT/HCPCS: 99213

== ENCOUNTER → 2024-02-02 14:16 | Outpatient (BNVA) | payer OTHER, MEDICARE, SELFPAY | PROVIDERS: PCP Family Medicine; Visit Provider Student in an Organized Health Care Education/Training Program ==

== ENCOUNTER 2024-02-03 10:12 | Outpatient (REF) | payer OTHER, MEDICARE, SELFPAY | END 2024-02-03 10:13 | disposition home or self-care (01) | LOC: HO.MAMMO 10:12 | PROVIDERS: PCP Physician Assistant; Visit Provider Physician Assistant | DX: Z13.89 Encounter for screening for other disorder (principal) ==

== ENCOUNTER 2024-03-15 10:45 | Outpatient (REF) | payer OTHER, MEDICARE, SELFPAY ==
[2024-03-15 16:28] LABS: Appearance Urine Clear; Color Urine Yellow; Glucose Urine UA Negative (Negative); Leukocyte Esterase Urine Large (3+) (Negative); Nitrite Urine Negative (Negative); Specific Gravity - Urine 1.015 (1.005-1.025); UMIC TRIGGER UA YES; Urine Blood Negative (Negative); Urine Ketones Negative (Negative); Urine Protein Negative (Neg-Trace)
[2024-03-15 17:16] LABS: Bacteria Urine None Seen (None Seen); RBC Urine 0-2 /HPF (0-2); WBC Urine 21-50 /HPF (0-5)
== END 2024-03-15 10:46 | disposition home or self-care (01) ==
LOC: HO.HMGCLDS 10:45
PROVIDERS: Family Medicine; PCP Physician Assistant; Visit Provider Physician Assistant
DX: Z00.00 Encounter for general adult medical examination without abnormal findings (principal)
CPT/HCPCS: 81001; 81003

== ENCOUNTER 2024-03-16 08:04 | Outpatient (REF) | payer OTHER, MEDICARE, SELFPAY ==
--- NOTE | ~2024-03-16 | MM_ITS ---
EXAMINATION: BONE DENSITOMETRY CLINICAL INDICATION: Asymptomatic menopausal state. COMPARISON: Previous BD dated 01/26/2021 and baseline BD dated 11/25/2006. TECHNIQUE: Using a [employer] DXA System (software version: 13.1) manufactured by [employer], dual-energy x-ray absorptiometry was performed of the lumbar spine and left hip. The images are of good technical quality. Summary results are attached. FINDINGS: LEFT FEMUR, NECK: Current: BMD 0.804 g/cm2, Z-score 0.7, T-score -1.7, osteopenia. Prior: BMD 0.833 g/cm2. Baseline: BMD 0.867 g/cm2. LEFT FEMUR, TOTAL: Current: BMD 0.865 g/cm2, Z-score 1.1, T-score -1.1, osteopenia, 7.0% decrease from previous, 11.7% decrease from baseline (<5% change is not significant). Prior: BMD 0.930 g/cm2. Baseline: BMD 0.980 g/cm2. AP SPINE L1-L4: Current: BMD 1.104. g/cm2, Z-score 1.6, T-score -0.6, normal, 4.4% decrease from previous, 2.4% decrease from baseline (<5% change is not significant). Prior: BMD 1.155 g/cm2. Baseline: BMD 1.131 g/cm2. IDENTIFIED RISK FACTORS: Menopause, secondary osteoporosis. HISTORY OF FRACTURE: None listed. MEDICATIONS: Vitamin D. MM/XR DEXA axial skeleton IMPRESSION: 1. DIAGNOSIS: Osteopenia based on the lowest T-score value of -1.7 in the femoral neck applying World Health Organization criteria. 2. 10-YEAR FRACTURE RISK PREDICTION, FRAX: Major osteoporotic fracture (clinical spine, forearm, hip or shoulder) 13.8%. Hip fracture 3.6%. 3. Treatment Recommendations: NOF guidelines recommend consideration for treatment in postmenopausal women and men age 50 and older presenting with the following: -A hip or vertebral (clinical or morphometric) fracture. -T-score less than or equal to -2.5 at the femoral neck or spine after appropriate evaluation to exclude secondary causes. -Low bone mass at the hip or spine and a 10-year fracture probability by FRAX of greater than or equal to 3% for hip fracture or greater than or equal to 20% for major osteoporotic fracture based on the [place] adapted WHO algorithm. 4. Other Recommendations: All treatment decisions require clinical judgment and consideration of individual patient factors, including patient preferences, comorbidities, previous drug use, risk factors not captured in the FRAX model (e.g. frailty, falls, vitamin D deficiency, increased bone turnover, interval significant decline in bone density) and possible under or overestimation of fracture risk by FRAX. Additional medical evaluation for secondary cause of low bone mineral density may be appropriate. FUTURE SCAN RECOMMENDATION: People with diagnosed cases of osteoporosis or at high risk for fracture should have regular bone mineral density tests. For patients eligible for Medicare, routine testing is allowed once every 2 years. The testing frequency can be increased to one year for patients who have rapidly progressing disease, those who are receiving or discontinuing medical therapy to restore bone mass, or have additional risk factors. Electronically signed by: Miko Lopez MD 03/17/2024 08:28 AM EDT
== END 2024-03-16 08:05 | disposition home or self-care (01) ==
LOC: HO.MAMMO 08:04
PROVIDERS: PCP Physician Assistant; Visit Provider Physician Assistant
DX: Z13.820 Encounter for screening for osteoporosis (principal); Z78.0 Asymptomatic menopausal state
CPT/HCPCS: 77080

== ENCOUNTER 2024-03-16 13:50 | Outpatient (AMB) | payer OTHER, MEDICARE, SELFPAY ==
[2024-03-16 13:56] VITALS: BP 146/76; BMI 23.7
--- NOTE | 2024-03-16 13:56 | MHC.OFFVIS ---
Vital Signs 03/16/24 13:56 03/16/24 14:18 Height 5 ft 1 in Weight 125 lb 3.561 oz BMI 23.7 BP 146/76 H 142/65 H Blood Pressure Location Lt brachial Lt brachial Position Sitting Intake Visit Reasons: F/U NTMNG-conf Intake Note: Patient present today for NTMNG follow up visit. Physical Therapy Aide Required: No Accompanied by: Self / Same As Patient Allergies Sulfa (Sulfonamide Antibiotics) Allergy (Unknown, Verified 03/16/24 14:03) Unknown sulfamethoxazole [From Bactrim] Allergy (Unknown, Verified 03/16/24 14:03) Unknown trimethoprim [From Bactrim] Allergy (Unknown, Verified 03/16/24 14:03) Unknown Medication List - Last Reconciled 03/16/24 by Desirae Meek MD acetaminophen 1,000 mg (2 x 500 mg) PO Q6H PRN allopurinol 300 mg PO DAILY cholecalciferol (vitamin D3) 1,250 mcg PO QWEEK 30 days hydralazine 10 mg PO BID 90 days levothyroxine 75 mcg PO DAILY propranolol ER 160 mg PO DAILY 90 days valsartan-hydrochlorothiazide 160-12.5 mg 1 tab PO DAILY 90 days HPI Comments Details: 79 YO F with no significant PMHx who is seen for follow up of postoperative hypothyroidism.. Was previously following with Dr. Eduardo and then was seeing Dr. Damon last visit was in October 2023. HPI from prior visit Had thyroid ultrasound in May 2022 which revealed a large left mid pole 5.4 cm thyroid nodule. She was reporting compressive symptoms. Subsequently underwent CT of the neck in June 2022 which did reveal enlargement of the L lobe of the thyroid substernal extension and deviation of the trachea to the right. She underwent FNA biopsy of this left mid pole 5.4 cm thyroid nodule 09/19/2022 with benign cytology. Given compressive symptoms she was referred to Endocrine surgery at [facility] in the status post left lobectomy in June [address] Briana Samule. Pathology was benign. She is now on levothyroxine 75 mcg daily. Taking it appropriately in adherent to therapy. Most recent TSH is normal at 0.7 from Dec 2023 Denies any symptoms of hyper or hypothyroidism. Denies any history of head or neck irradiation. Denies any family history of thyroid cancer. Mother had thyroid surgery for nodules as well. Physical exam General: sitting comfortably in no acute distress HEENT: normocephalic/atraumatic,, moist oral mucosa Neck: supple, symmetrical, well healed scar noted, no dorsocervical or supraclavicular fat pads Cardiac: normal heart sounds Pulm: normal breath sounds B/L, no added breath sounds Abd: not distended, no tenderness Extremities: no edema, no signs of myxedema Neuro: AAO x3, Speech: normal, no facial droop, moving all 4 extremities Laboratory Tests 08/12/23 09/18/23 01/07/24 12:03 12:39 08:03 TSH 11.66 H 0.75 0.70 Free T4 0.96 1.52 Imaging Thyroid US: 06/05/2022 Right Thyroid Lobe: 4.5 x 1.6 x 1.2 cm, volume 4.3 mL. Parenchyma: The gland echotexture is homogeneous. Thyroid vascularity is normal. Left Thyroid Lobe: 6.3 x 3.5 x 4.1 cm, volume 47.0 mL. Parenchyma: The gland echotexture is homogeneous. Thyroid vascularity is increased. Isthmus: 0.3 cm in maximum AP dimension. Estimated total number of nodules greater than or equal to 1 cm: 1. Planning Aide nodules are described as follows: 1. Location: Right lower pole. ?? ? Size: 0.9 x 0.6 x 0.7 cm, volume 0.20 mL. ?? ? Nodule characteristics: ?? ? Composition: Spongiform (0). ?? ? ACR TI-RADS total points: 0 ?? ? ACR TI-RADS category: 1 2. Location: Right lower pole. ?? ? Size: 0.5 x 0.3 x 0.4 cm, volume 0.03 mL. ?? ? Nodule characteristics: ?? ? Composition: Cystic(0). ?? ? ACR TI-RADS total points: 0 ?? ? ACR TI-RADS category: 1 3. Location: Right mid pole. ?? ? Size: 0.6 x 0.5 x 0.5 cm, volume 0.08 mL. ?? ? Nodule characteristics: ?? ? Composition: Spongiform (0). ?? ? ACR TI-RADS total points: 0 ?? ? ACR TI-RADS category: 1 4. Location: Left mid/lower pole. ?? ? Size: 5.4 x 3.0 x 4.1 cm, volume 35.0 mL. ?? ? Nodule characteristics: ?? ? Composition: Solid/almost completely solid (2). ?? ? Echogenicity: Hyperechoic (1). ?? ? Shape: Not taller than wide (0). ?? ? Margins: Smooth (0). ?? ? Echogenic Foci: None (0). While there are regions of hyperechogenicity there are no definite punctate echogenic foci. ?? ? ACR TI-RADS total points: 3 ?? ? ACR TI-RADS category: 3 NODES: No lymphadenopathy is seen in the tissue surrounding the thyroid gland. CT Neck: 06/25/2022 FINDINGS: Skull Base: Grossly intact. 1.6 cm probable retention cysts with dystrophic calcification along the floor of the left maxillary sinus. Limited assessment of the included intracranial structures. No acute process. Visualized intraorbital soft tissues are within normal limits. Suprahyoid Neck: Nasopharynx, retropharynx, water commissioner and parapharyngeal spaces appear grossly within normal limits. The major salivary glands are normal in morphology and attenuation. The oropharynx is smoothly contoured. There is a small calcified tonsillolith in the right palatine tonsil. The visualized oral tongue, base of the tongue and floor of the mouth structures appear symmetric. Lingual tonsils appear grossly unremarkable with a normal appearance to the epiglottis within the limitations of the study. No lymphadenopathy identified. Multiple scattered, normal-sized bilateral IJ chain and subarticular space lymph nodes are seen. Infrahyoid Neck: The hypopharynx and larynx appear grossly within normal limits. There is asymmetric enlargement of the left thyroid lobe with a heterogeneous appearance to the right thyroid lobe. Findings are consistent with the previously noted 5.4 cm left thyroid lobe nodule, with caudal extension into the superior mediastinum, with deviation of the trachea to the right without tracheal narrowing. This encroaches on the left tracheoesophageal groove. A few small, scattered, normal-sized bilateral IJ chain lymph nodes and level Vb lymph nodes are seen bilaterally. Small, normal-sized level Va lymph node on the left. Upper Chest: Visualized lung parenchyma is within normal limits. The visualized mediastinum is otherwise within normal limits. Skeletal: Multilevel cervical DDD and spondylosis is noted. Possible tiny bone island in the T3 vertebral body. Mild upper thoracic levocurvature noted. Other Comments: None. CT/CT soft tissue neck wo IV con IMPRESSION: 1.? Large left thyroid lobe nodule with caudal extension into the superior mediastinum with deviation of the trachea to the right and encroachment on the left tracheoesophageal groove without tracheal narrowing. ? 2.? No cervical lymphadenopathy identified within the limitations of a noncontrast exam. ? 3.? Probable retention cyst with dystrophic calcification along the floor of the left maxillary sinus. ? 4.? Cervical degenerative changes. ? 5.? Small calcified tonsillolith in the right palatine tonsil. ? 6.? Tiny sclerotic focus in the T3 vertebral body. Statistically, this is most likely a small bone island. If there is any clinical concern for malignancy, then radionuclide skeletal scintigraphy correlation would be recommended. [facility] Medical History HTN (hypertension) Erosive (osteo)arthritis Multinodular thyroid Surgical History History of thyroidectomy (~07/14/23) History of surgery History of wisdom tooth extraction Family History Father Heart failure Mother Heart failure Gout Brother No problems noted. Brother No problems noted. Sister Breast cancer Asthma Sister No problems noted. Son No problems noted. Son No problems noted. Son No problems noted. Son No problems noted. 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 She appears to be clinically and biochemically euthyroid on 75 mcg levothyroxine Plan is to continue the current therapy. At this point, patient can follow up with the primary care provider returned to endocrinology as needed Plan: -annual thyroid function testing to be done by primary care physician -continue levothyroxine 75 mcg daily (2) Essential hypertension: Code(s): I10 - Essential (primary) hypertension Category: Medical Plan: Her blood pressure was noted to be elevated in the 140 systolic today. I repeated it and it was still elevated. Previously she has not had any elevated readings. I have asked her to monitor this at home and report to her primary care physician if remains greater than 135 systolic. Medications: Refilled levothyroxine 75 mcg PO DAILY 30 tabs 6RF Patient Instructions: Continue levothyroxine 75 mcg daily Your primary care can repeat thyroid blood work every year You do not need to schedule a follow up with us , can see us on an as needed basis Monitor blood pressure at home, if elevated report to your primar care physician Coding Level of Care Code Est Pt Level 3 (95865) Diagnoses Multinodular thyroid E04.2 Essential hypertension I10
[2024-03-16 14:18] VITALS: BP 142/65
== END 2024-03-16 14:26 | disposition home or self-care (01) ==
LOC: HO.ENCR 13:51
PROVIDERS: PCP Physician Assistant; Visit Provider Student in an Organized Health Care Education/Training Program
DX: E04.2 Nontoxic multinodular goiter (principal); I10 Essential (primary) hypertension
CPT/HCPCS: 99213

== ENCOUNTER 2024-04-07 09:07 | Outpatient (AMB) | payer OTHER, MEDICARE, SELFPAY ==
--- NOTE | 2024-04-07 09:28 | A.OFFPC_ITS ---
Vital Signs 04/07/24 09:29 Height 5 ft 1 in Weight 127 lb 6 oz BMI 24.1 BP 116/68 Blood Pressure Location Lt brachial Position Sitting Pulse 58 Pulse Source Pulse Oximeter Pulse Oximetry (%) 99 Oxygen Delivery Method Room Air Intake Visit Reasons: FMLA extension paperwork /reevaluation. Intake Note: FMLA extension paperwork. Apricot Packer Required: No Allergies Sulfa (Sulfonamide Antibiotics) Allergy (Unknown, Verified 04/07/24 09:29) Unknown sulfamethoxazole [From Bactrim] Allergy (Unknown, Verified 04/07/24 09:29) Unknown trimethoprim [From Bactrim] Allergy (Unknown, Verified 04/07/24 09:29) Unknown Medication List - Last Reconciled 04/07/24 by Julianna Li PA-C acetaminophen 1,000 mg (2 x 500 mg) PO Q6H PRN allopurinol 300 mg PO DAILY cholecalciferol (vitamin D3) 1,250 mcg PO QWEEK hydralazine 10 mg PO BID 90 days levothyroxine 75 mcg PO DAILY propranolol ER 160 mg PO DAILY 90 days valsartan-hydrochlorothiazide 160-12.5 mg 1 tab PO DAILY 90 days Tobacco use date assessed: 04/07/24 Dental Screening Dental Screen Date: 09/04/23 HPI FMLA extension paperwork /reevaluation. HPI Details History of Present Illness The patient is an 79-year-old female presenting with situational anxiety. The anxiety pertains to stress from her workplace environment, where she felt targ eted and pressured due to her age, contributing to significant emotional distress. This resulted in her decision to discontinue work. Neuropsychiatric evaluation at [facility] [place] showed no cognitive impairment. She has a history of hypertension, which is currently well-controlled with valsartan/hydrochlorothiazide, propranolol, and hydralazine. The patient also has hypercholesterolemia, which was untreated due to adverse effects, namely muscle aches from previous statin (does not want). Her LDL levels were reported at 149 mg/dL, slightly elevated from the recommended levels. She manages her cholesterol through dietary modifications. The patient also has hypothyroidism and is currently stable on 75 micrograms of levothyroxine, with her recent thyroid function tests showing normal results. Her blood pressure today is recorded at 116/68 mmHg, indicating good control. Social History - Recently retired, with plans to not re turn to work due to workplace anxiety - Dietary habits include a fondness for ice cream, with efforts to control cholesterol through diet Review of Systems - Cardiovascular: Denies chest pain, pal pitations. - Respiratory: Denies dyspnea, cough. - Gastrointestinal: Denies abdominal milagro n, changes in bowel habits. - Musculoskeletal: Denies joint pain or swelling. - Neurological: Denies headaches, dizzin ess. - Psychiatric: Reports anxiety related t o workplace environment. Physical Exam General: Cooperative, healthy appearing, comfortable, no acute distress and well developed Orientation: Patient oriented x3 Limitations: No limitations Head: Normal to inspection Ears: Hearing grossly normal bilaterally Nose: Normal external nose present Face and sinus: Normal facial exam Eyes: Appearance normal, both eyes and all related structures Neck: Normal visual inspection and Yes full ROM Respiratory: Normal respiratory effort and able to speak in complete sentences. Clear to auscultation bilaterally Cardiovascular: Regular rate and rhythm. Normal S1 and S2 GI: Normal to inspection. Soft to palpation and nontender Skin: No rashes or lesions noted Neuro: Patient oriented x3 Extremities: Normal to inspection, no edema noted Results - Labs: Last cholesterol checked showed elevated LDL at 149 mg/dL Plan - Situational Anxiety: Documentation of situational anxiety for the purpose of work-related disability. Continue to monitor emotional well-being and consider referral for therapy if anxiety persists. - Essential Hypertension: Continue curre nt antihypertensive regimen including valsartan/hydrochlorothiazide, propranolol, and hydralazine. Routine monitoring of blood pressure at home and follow-up in three to four months. - Hypercholesterolemia: Emphasize dietar y modifications and plan to recheck lipid profile in a few months. Consider trial of different cholesterol-lowering medication if dietary control is insufficient. - Hypothyroidism: Continue levothyroxine 75 micrograms daily. Monitor thyroid function tests every few months to ensure levels remain stable. - Follow-up planned in three to four mon ths, accompanied by laboratory evaluation prior to the appointment. Patient was informed and verbally consented to the use of an ambient scribe for clinic note documentation during this visit. Discussion Notes I discussed with the patient the nature of situational anxiety stemming from work-related stress and the planned approach to management, including avoidance of the stressor and possible support through therapy. We reviewed her current medication regimen for hypertension and the benefits of continued adherence to control her blood pressure. For her elevated cholesterol levels, I advised dietary modifications as an initial strategy, with future consideration of pharmacotherapy if necessary. I reassured the patient regarding her stable thyroid function with current levothyroxine therapy and no required adjustments. The patient was informed about the timeline for follow-up appointments and necessary lab work. Patient Instructions immunizations up to date [facility] Medical History HTN (hypertension) Erosive (osteo)arthritis Multinodular thyroid Surgical History History of thyroidectomy (~07/14/23) History of surgery History of wisdom tooth extraction Family History (Updated 04/07/24 @ 09:42 by Inna Meehan CMA) Father Heart failure Mother Heart failure Gout Brother No problems noted. Brother No problems noted. Sister Breast cancer Asthma Sister No problems noted. Son No problems noted. Son No problems noted. Son No problems noted. Son No problems noted. 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 1. Little interest or pleasure in doing things: nearly every day Source: Developed by Drs. Lalo Casey, Dony Hernandes and colleagues, with an educational viral from [employer]. Thrive Questionnaire Date Thrive assessed: 12/25/23 GASPER-7 AMB Questionnaire GASPER-7 Date GASPER - 7 assessed: 12/25/23 Source: Developed by Drs. Lalo Casey, Dony Hernandes and colleagues, with an educational viral from [employer]. Physical exam (Primary Care) Vital Signs: Last Vital Signs Pulse 58 04/07/24 09:29 BP 116/68 04/07/24 09:29 Pulse Ox 99 04/07/24 09:29 Oxygen Delivery Method Room Air 04/07/24 09:29 BMI result Body Mass Index 24.1 Tobacco/Smoking Status: Tobacco use Status Tobacco use date assessed 04/07/24 04/07/24 09:42 Patient Tobacco Use Status Never used Tobacco 04/07/24 09:42 e-Cigarette/Vaping Use Never Used 04/07/24 09:42 Thrive Assessment: Date of Thrive Assessment Date Thrive assessed 12/25/23 04/07/24 09:33 Coding Level of Care Code Est Pt Level 4 (45779) Complex EM visit Add On G2211 Diagnoses Situational anxiety F41.8 Hyperlipidemia E78.5 Essential hypertension I10 Hypothyroid E03.9 Assessment & Plan Assessment & Plan (1) Situational anxiety: Code(s): F41.8 - Other specified anxiety disorders Category: Medical (2) Hyperlipidemia: Code(s): E78.5 - Hyperlipidemia, unspecified Category: Medical (3) Essential hypertension: Code(s): I10 - Essential (primary) hypertension Category: Medical (4) Hypothyroid: Code(s): E03.9 - Hypothyroidism, unspecified Category: Medical Plan .
[2024-04-07 09:29] VITALS: BP 116/68; PULSE 58; O2SAT 99; BMI 24.1
== END 2024-04-07 10:36 | disposition home or self-care (01) ==
PROVIDERS: PCP Physician Assistant; Visit Provider Physician Assistant
DX: E78.5 Hyperlipidemia, unspecified (principal); F41.8 Other specified anxiety disorders; I10 Essential (primary) hypertension; E03.9 Hypothyroidism, unspecified

== ENCOUNTER 2024-04-30 14:10 | Outpatient (REF) | payer OTHER, MEDICARE, SELFPAY ==
--- OUTSIDE RECORDS SUMMARY | 2024-04-30 14:12 | XMS_ITS | Data Portability ---
Author Organization BREANNA Taylor [facility] [address] Address [address] [place] [address] Assessment No assessment recorded. Plan of Treatment Reminders Order Date Submit Date Provider Last Modified By Organization Details Last Modified Time Details Appointments None recorded. Lab None recorded. Referral None recorded. Procedures None recorded. Surgeries None recorded. Imaging None recorded. Medication Orders cephalexin 500 mg capsule 2022 023 [facility]/Pharmacy #[id number], [address] [place], [address], 13:00:18 Patient TargetsNo targets recorded. Patient Instructions Encounter Date Encounter Id Patient Instructions Last Modified By Organization Details Last Modified Time 06/15/2022 [id number] cellulitis: care instructions [email or web address] Not available 06/15/2022 13:00:16 Reason for Referral None Reported. Problems Name Problem SNOMED Code Status Onset Date Resolution Date Notes Provider Name and Address Organization Details Recorded Time Hypertensive disorder 15872827 Active 2022 EAGLE mora PA - [facility] 12:38:29 Problem Notes None recorded. Procedures Surgical History Date Name Laterality Status Provider Name and Address Organization Details Recorded Time ligation of fallopian tube completed EAGLE HALEY PA - [facility] 06/15/2022 12:40:17 Imaging Results None recorded. Procedure Notes None recorded. Medical Equipment None Reported. Allergies Allergen ID Allergen Name Allergen Category Reaction Reaction Severity Criticality Documentation Date Start Date Code Code System Note Provider Name and Address Organization Details Recorded Time 769167 Substance with sulfonami de structure and antibacte rial mechanism of action (substanc e) medicatio n nausea Not available Not available 06/15/2022 72791 8003 SNOMED EAGLE mora PA - [facility] 3 12:38:04 Medications Name Sig Start Date Stop Date Status Note LastModified by Organization Details LastModified Time propranolol ER 160 mg capsule,24 hr,extended release TAKE 1 CAPSULE BY MOUTH EVERY DAY FOR 90 DAYS active Not Available Not Available No t Available cephalexin 500 mg capsule 1 cap po bid x 10 d 2022 active Not Available Not Available Not Avai lable furosemide 20 mg tablet TAKE 1 TABLET BY MOUTH EVERY DAY active Not Available Not Available No t Available valsartan 320 mg-hydrochlorot hiazide 25 mg tablet TAKE 1 TABLET BY MOUTH EVERY DAY FOR 90 DAYS active Not Available Not Available No t Available cholecalciferol (vitamin D3) 1,250 mcg (50,000 unit) capsule TAKE 1 CAPSULE BY MOUTH ONCE EVERY WEEK X30 DAYS active Not Available Not Available No t Available Vitals Date Recorded Body height Body mass index (BMI) Body weight Respiratory rate Oxygen saturation Oxygen saturation in Arterial blood by Pulse oximetry Heart rate Body temperature Systolic blood pressure Diastolic blood pressure Provider Name and Address Organization Details Last Updated DateTime 3 154.94 cm 22.1 kg/m2 72664.3 1 g 18 /min 99 % 99 % 64 /min 97.7 [degF] 121 mm[Hg] 74 mm[Hg] EAGLE CARLOS [facility] 12:41:11 Social History Question Answer Notes LastModified by Organizat ion Details LastModified Time Tobacco Smoking Status Never Smoker BREANNA Cortes [facility] 06/15/2022 12:39:57 What Is Your Level Of Alcohol Consumption? Occasional [email or web address] Information not available 06/15/2022 Do You Use Any Illicit Or Recreational Drugs? No [email or web address] Information not available 06/15/2022 Have You Recently Traveled Abroad? No [email or web address] Information not available 06/15/2022 Do You Or Have You Ever Used Any Other Forms Of Tobacco Or Nicotine? No [email or web address] Information not available 06/15/2022 Sex: Unknown Functional Status None recorded. Mental Status None recorded. Family History Relationship Description Onset Age of this Age Resolved Age Notes LastModified by Organization Details LastModified Time Father No current problems or disability [email or web address] Not available 06/15 12:39:43 Mother No current problems or disability [email or web address] Not available 06/15 12:39:43 Medical History No medical history recorded. Gynecological HistoryNo gynecological history recorded. Obstetrics History GPAL:G 0 P 0 0 0 0 Past Encounters Encounter ID Performer Location Encounter Start Date Encounter Closed Date Diagnosis/Indication Diagnosis SNOMED-CT Code Diagnosis ICD10 Code [id number] [address] [place] [address] 11/11/2017 09:42:14 11/11/2017 11:05:40 [id number] Song Marie DO [address] [place] [address] 06/15/2022 12:11:02 06/15/2022 13:02:40 Cellulitis of lower leg 624303870 L03.119 Health Concerns Section Related Observation LastModified by Organization Detai ls LastModified Time None Recorded Concern Status LastModified by Organization Details LastModified Time None Recorded Advance Directives Directive None Recorded Payers Encounter Date Sequence Insurance Name Policy Number Policy Grullon Covered Member ID Grullon Member ID Guarantor Name 11/11/2017 1 [facility] (O) [id number] Joann Taylor [id number] Joann Taylor 11/11/2017 1 [place] [facility] GOVERNMENT SERVICES Joann Taylor [id number] Joann Taylor 06/15/2022 1 [place] PPO) [id number] Joann Taylor [id number] Joann Taylor Notes Date Note Type Note Provider Name and Address Organization Details Recorded Time 06/15/2022 text/html Foot/Ankle UCReported bypatient.Notes:77 yo femalec/o L footpainHas h/o bunionno trauma+ redness+ swelling+ warmthno rashno otc meds Song Marie DO [address] [place], [address], [place] - [facility] 06/15/2022 13:01:32 OBGyn Episode No OBEpisode recorded.
[2024-04-30 16:21] LABS: Anion Gap 11 (12-20); Blood Urea Nitrogen 15 mg/dL (9-16); Calcium 9.5 mg/dL (8.4-10.2); Carbon Dioxide 29 mmol/L (22-29); Chloride 105 mmol/L (96-108); Estimated Glomerular Filt Rate 41; Glucose Random 115 mg/dL (60-115); Potassium 3.7 mmol/L (3.3-5.1); Sodium 141 mmol/L (135-145); Uric Acid 7.4 mg/dL (2.4-5.7)
== END 2024-04-30 14:11 | disposition home or self-care (01) ==
LOC: HO.HMGCLDS 14:10
PROVIDERS: PCP Physician Assistant; Visit Provider Student in an Organized Health Care Education/Training Program
DX: M10.9 Gout, unspecified (principal)
CPT/HCPCS: 36415; 80048; 84550

== ENCOUNTER 2024-05-04 14:01 | Outpatient (AMB) | payer OTHER, MEDICARE, SELFPAY ==
--- NOTE | 2024-05-04 14:04 | A.OFFVIS_ITS ---
Vital Signs 05/04/24 14:09 Height 5 ft 1 in Weight 127 lb 6.835 oz BMI 24.1 BP 122/68 Blood Pressure Location Lt brachial Position Sitting Pulse 59 Pulse Source Pulse Oximeter Pulse Oximetry (%) 98 Oxygen Delivery Method Room Air Intake Visit Reasons: Gout Intake Note: Patient presents for Gout. Allergies Sulfa (Sulfonamide Antibiotics) Allergy (Unknown, Verified 05/04/24 14:08) Unknown sulfamethoxazole [From Bactrim] Allergy (Unknown, Verified 05/04/24 14:08) Unknown trimethoprim [From Bactrim] Allergy (Unknown, Verified 05/04/24 14:08) Unknown Medication List - Last Reconciled 05/04/24 by Tashi Olivarez MD acetaminophen 1,000 mg (2 x 500 mg) PO Q6H PRN allopurinol 100 mg PO DAILY allopurinol 300 mg PO DAILY cholecalciferol (vitamin D3) 1,250 mcg PO QWEEK colchicine 0.6 mg PO Q OTHER DAY hydralazine 10 mg PO BID 90 days levothyroxine 75 mcg PO DAILY prednisone Take 3 tabs daily x3 days then 2 tabs daily x3 days then 1 tab daily x3 days then stop propranolol ER 160 mg PO DAILY 90 days valsartan-hydrochlorothiazide 160-12.5 mg 1 tab PO DAILY 90 days HPI Comments Details: 79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 She remains on allopurinol 300 mg daily. About 5 weeks ago she call the clinic with a flare-up affecting her left ankle and foot. She attributes it to eating tuna. She called our office and we prescribed her prednisone which was dramatically helpful after 2 days. She has been doing well otherwise Initial history: This is a 78-year-old female who was referred from physiatry for evaluation of gout. Patient states that for about a year and half she has noticed deposits yellowish-white deposits on the tip of her right index finger as well as other fingers, rarely she would have pain, she would take Tylenol and it would help. It has not limited her in any way. She denies any history of kidney stones. Patient had thyroidectomy last week, on the day prior to her surgery she started having right hand swelling that progressed to involve her right wrist associated with significant pain, she had her thyroidectomy and was told by hand surgeon that she has gout. She was given some medication while she was admitted with some improvement. She was discharged. She was evaluated today by clerical and office support workers and referred to me for gout evaluation. Patient has been taking a myers extract supplement which she believes it helps. She does not have any pain today. Her mother had gout. She states that she drinks every 2-3 weeks. She would have 1 glass of of wine at most [facility] Medical History HTN (hypertension) Erosive (osteo)arthritis Multinodular thyroid Surgical History History of thyroidectomy (~07/14/23) History of surgery History of wisdom tooth extraction Family History Father Heart failure Mother Heart failure Gout Brother No problems noted. Brother No problems noted. Sister Breast cancer Asthma Sister No problems noted. Son No problems noted. Son No problems noted. Son No problems noted. Son No problems noted. 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 Current occupational exposures/hazards: No Cognitive needs: No Hearing needs: No Vision needs: No Review of Systems Musc Denies arthralgias, Denies joint swelling and Denies stiffness Physical Exam Vital Signs: Last Vital Signs Pulse 59 05/04/24 14:09 BP 122/68 05/04/24 14:09 Pulse Ox 98 05/04/24 14:09 Oxygen Delivery Method Room Air 05/04/24 14:09 BMI result Body Mass Index 24.1 Const General: cooperative, healthy appearing and comfortable Nutritional Appearance: average body habitus Orientation/consciousness: patient oriented x3 Limitations: no limitations HEENT Head: Yes normocephalic and Yes atraumatic Resp Effort & Inspection: normal respiratory effort Auscultation: clear to auscultation bilaterally Cardio Rate: regular rate Rhythm: regular rhythm Neuro General: patient oriented x3 Extrem Other: Multiple tophi affecting both fingers, most prominent on right index tip. And left index PIP No tophi on ears No active synovitis Assessment & Plan Assessment & Plan (1) Gout: Comment: dx 07/2023 tophaceous. 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 On allopurinol 300 mg daily. She had a gout flare-up last month involving her left ankle and foot resolved with prednisone taper. Her uric acid level is 7.4 mg/dL, not at target Increase allopurinol to 400 mg daily. Patient will need some prophylaxis. In the past patient had soft stools with colchicine 0.6 mg daily. Restart colchicine at 0.6 mg every other day. Advised patient to call the clinic and let us know if she gets GI side effects. Will consider starting her on prednisone 2.5-5 mg daily for prophylaxis Discuss with PCP, consider discontinuing HCTZ to another antihypertensive such as losartan if feasible Labs before next visit in 3 months Plan I spent 16 minutes reviewing patient's chart, evaluating patient, ordering diagnostic workup, counseling patient and documenting in the chart Orders: Orders Comprehensive Met. Panel 3 Months M10.9 - Gout, unspecified Uric Acid 3 Months M10.9 - Gout, unspecified Medications: New allopurinol Combine with allopurinol 300 mg tablet for a total of 400 mg daily 100 mg PO DAILY 90 tabs 0RF Changed From colchicine 0.6 mg PO DAILY 30 tabs 0RF To colchicine 0.6 mg PO Q OTHER DAY 45 tabs 0RF Refilled prednisone Take 3 tabs daily x3 days then 2 tabs daily x3 days then 1 tab daily x3 days then stop 18 tabs 0RF Coding Level of Care Code Est Pt Level 3 (70035) Diagnoses Acute gout of right hand, unspecified cause M10.9 Gout site: hand Gout etiology: unspecified cause Chronicity: acute Laterality: right
[2024-05-04 14:09] VITALS: BP 122/68; PULSE 59; O2SAT 98; BMI 24.1
--- OUTSIDE RECORDS SUMMARY | 2024-05-04 14:10 | XMS_ITS | Data Portability ---
Author Organization [facility]ANNA Taylor [facility] [address] Address [address] [place] [address] Assessment No assessment recorded. Plan of Treatment Reminders Order Date Submit Date Provider Last Modified By Organization Details Last Modified Time Details Appointments None recorded. Lab None recorded. Referral None recorded. Procedures None recorded. Surgeries None recorded. Imaging None recorded. Medication Orders cephalexin 500 mg capsule 2022 023 [facility]/Pharmacy #[id number], [address] [place], [address], 13:00:18 Patient TargetsNo targets recorded. Patient Instructions Encounter Date Encounter Id Patient Instructions Last Modified By Organization Details Last Modified Time 06/15/2022 [id number] cellulitis: care instructions [email or web address] Not available 06/15/2022 13:00:16 Reason for Referral None Reported. Problems Name Problem SNOMED Code Status Onset Date Resolution Date Notes Provider Name and Address Organization Details Recorded Time Hypertensive disorder 03379467 Active 2022 [facility] Name and Address Organization Details Recorded Time 069757 Substance with sulfonami de structure and antibacte rial mechanism of action (substanc e) medicatio n nausea Not available Not available 06/15/2022 23639 8003 SNOMED [facility] [...] Updated DateTime 3 154.94 cm 22.1 kg/m2 04135.3 1 g 18 /min 99 % 99 % 64 /min 97.7 [degF] 121 mm[Hg] 74 mm[Hg] EAGLE CARLOS [facility] 3 12:41:11 Social History Question Answer Notes LastModified by Organizat ion Details LastModified Time Tobacco Smoking Status Never Smoker BREANNA Cortes [facility] 06/15/2022 12:39:57 What Is Your Level Of Alcohol Consumption? Occasional [email or web address] Information not available 06/15/2022 Do You Use Any Illicit Or Recreational Drugs? No [email or web address] Information not available 06/15/2022 Have You Recently Traveled Abroad? No Information not available 06/15/2022 Do You Or Have You Ever Used Any Other Forms Of Tobacco Or Nicotine? No [email or web address] Information not available 06/15/2022 Sex: Unknown Functional Status None recorded. Mental Status None recorded. Family History Relationship Description Onset Age of this Age Resolved Age Notes LastModified by Organization Details LastModified Time Father No current problems or disability [email or web address] Not available 06/15 12:39:43 Mother No current problems or disability [email or web address] Not available 06/15 12:39:43 Medical History No medical history recorded. Gynecological HistoryNo gynecological history recorded. Obstetrics History GPAL:G 0 P 0 0 0 0 Past Encounters Encounter ID Performer Location Encounter Start Date Encounter Closed Date Diagnosis/Indication Diagnosis SNOMED-CT Code Diagnosis ICD10 Code [id number] [address] [place] [address] 11/11/2017 09:42:14 11/11/2017 11:05:40 [id number] Song Marie DO [address] [place] [address] 06/15/2022 12:11:02 06/15/2022 13:02:40 Cellulitis of lower leg 520286198 L03.119 Health Concerns Section Related Observation LastModified by Organization Detai ls LastModified Time None Recorded Concern Status LastModified by Organization Details LastModified Time None Recorded Advance Directives Directive None Recorded Payers Encounter Date Sequence Insurance Name Policy Number Policy Grullon Covered Member ID Grullon Member ID Guarantor Name 11/11/2017 1 [facility] (O) [id number] Joann Taylor [id number] Joann Taylor 11/11/2017 1 [place] [facility] G[facility]MENT [facility] Joann Taylor [id number] Joann Taylor 06/15/2022 1 [place] (MED[place]ARE [place] PPO) [id number] Joann Taylor [id number] Joann Taylor Notes Date Note Type Note Provider Name and Address Organization Details Recorded Time 06/15/2022 text/html Foot/Ankle UCReported bypatient.Notes:77 yo femalec/o L footpainHas h/o bunionno trauma+ redness+ swelling+ warmthno rashno otc meds Song Marie DO [address] [place], [address], [place] - [facility] 06/15/2022 13:01:32 OBGyn Episode No OBEpisode recorded.
== END 2024-05-04 14:38 | disposition home or self-care (01) ==
PROVIDERS: PCP Family Medicine; Visit Provider Student in an Organized Health Care Education/Training Program
DX: M10.9 Gout, unspecified (principal)
CPT/HCPCS: 99213

== ENCOUNTER 2024-07-12 11:58 | Outpatient (REF) | payer OTHER, MEDICARE, SELFPAY ==
--- OUTSIDE RECORDS SUMMARY | 2024-07-12 13:53 | XMS_ITS | Data Portability ---
Author Organization BREANNA Taylor levi [address] Address [address] [place] [address] Assessment No assessment recorded. Plan of Treatment Reminders Order Date Submit Date Provider Last Modified By Organization Details Last Modified Time Details Appointments None recorded. Lab None recorded. Referral None recorded. Procedures None recorded. Surgeries None recorded. Imaging None recorded. Medication Orders cephalexin 500 mg capsule 2022 023 [facility]/Pharmacy #[id number], [address] [place], [address], 13:00:18 Patient TargetsNo targets recorded. Patient Instructions Encounter Date Encounter Id Patient Instructions Last Modified By Organization Details Last Modified Time 06/15/2022 [id number] cellulitis: care instructions [email or web address] Not available 06/15/2022 13:00:16 Reason for Referral None Reported. Problems Name Problem SNOMED Code Status Onset Date Resolution Date Notes Provider Name and Address Organization Details Recorded Time Hypertensive disorder 75581697 Active 2022 [facility] [...] Name and Address Organization Details Recorded Time 597456 Substance with sulfonami de structure and antibacte rial mechanism of action (substanc e) medicatio n nausea Not available Not available 06/15/2022 39303 8003 SNOMED [facility] mora [facility] - [facility] [...] height Body mass index (BMI) Body weight Pain severity - 0-10 verbal numeric rating [Score] - Reported Respiratory rate Oxygen saturation Oxygen saturation in Arterial blood by Pulse oximetry Heart rate Body temperature Systolic blood pressure Diastolic blood pressure Provider Name and Address Organization Details Last Updated DateTime 3 154.94 cm 22.1 kg/m2 00451.3 1 g 5 18 /min 99 % 99 % 64 /min 97.7 [degF] 121 mm[Hg] 74 mm[Hg] EAGLE Marshall [facility] 3 12:41:11 Social History Question Answer Notes LastModified by Organizat ion Details LastModified Time Tobacco Smoking Status Never Smoker BREANNA Cortes [facility] 06/15/2022 12:39:57 What Is Your Level Of Alcohol Consumption? Occasional [email or web address] Information not available 06/15/2022 Do You Use Any Illicit Or Recreational Drugs? No Information not available 06/15/2022 Have You Recently Traveled Abroad? No [email or web address] Information not available 06/15/2022 Do You Or Have You Ever Used Any Other Forms Of Tobacco Or Nicotine? No [email or web address] Information not available 06/15/2022 Sex: Unknown Functional Status None recorded. Mental Status None recorded. Family History Relationship Description Onset Age of this Age Resolved Age Notes LastModified by Organization Details LastModified Time Father No current problems or disability Not available 06/15 12:39:43 Mother No current problems or disability [email or web address] Not available 06/15 12:39:43 Medical History No medical history recorded. Gynecological HistoryNo gynecological history recorded. Obstetrics History GPAL:G 0 P 0 0 0 0 Past Encounters Encounter ID Performer Location Encounter Start Date Encounter Closed Date Diagnosis/Indication Diagnosis SNOMED-CT Code Diagnosis ICD10 Code Diagnosis Note [id number] [address] [place] [address] 11/11/2017 09:42:14 11/11/2017 11:05:40 [id number] [facility] [address] [address] [place] [address] 06/15/2022 12:11:02 06/15/2022 13:02:40 Cellulitis of lower leg 684496024 L03.119 Rx cephalexin restelevat etylenol prn painTake your antibiotic with food. Eat a yogurt daily or take a probiotic while you are taking the antibiotic .Patient advised to follow up as needed for worsening symptoms or no improvemen Juan kurtz concerning red flags with patient and reasons to follow up in the Emergency Department urgently.. Health Concerns Section Related Observation LastModified by Organization Detai ls LastModified Time None Recorded Concern Status LastModified by Organization Details LastModified Time None Recorded Advance Directives Directive None Recorded Payers Encounter Date Sequence Insurance Name Policy Number Policy Grullon Covered Member ID Grullon Member ID Guarantor Name 11/11/2017 1 [facility] [id number] Joann Taylor [id number] Joann Taylor 11/11/2017 1 [place] [employer] Joann Taylor [id number] Joann Taylor 06/15/2022 1 [place] (MEDICARE [place]PLACEMENT PPO) [id number] Joann Taylor [id number] Joann Taylor Notes Date Note Type Note Provider Name and Address Organization Details Recorded Time 06/15/2022 text/html Foot/Ankle UCReported bypatient.Notes:77 yo femalec/o L footpainHas h/o bunionno trauma+ redness+ swelling+ warmthno rashno otc meds Song Marie, DO [address] [place], [address], PA - [facility] 06/15/2022 13:01:32 OBGyn Episode No OBEpisode recorded.
--- OUTSIDE RECORDS SUMMARY | 2024-07-12 13:53 | XMS_ITS | Patient Health Record ---
Author Organization 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 Name Role Phone MARTHA VALERA Primary Care Provider Rona Oleary Unavailable [phone] Reason For Referral No Information Medications Medication SIG (Take, Route, Frequency, Duration) Notes Start Date End Date Status VITAMIN D 50,000 IU ORAL Active Valsartan-hydroCHLOROthiaz naty 160-12.5 MG Orally Active Furosemide 1 ORAL daily for -3 Craig-MJ 09/30/2012 Active Inderal LA 1 ORAL daily for -3 Craig-MJ 09/30/2012 Active Social History Tobacco Use: Social History Observation Description Date Details (start date - stop date) Never Smoker NA - NA Tobacco Use/Smoking Question Answer Notes Are you a nonsmoker Section Notes: MARITAL STATUS: OCCUPATION: employed full-time [employer] NUTRITION: average diet EXERCISE: regular walking SEXUAL ACTIVITY: not sexually active Heterosexual MARITAL STATUS: OCCUPATION: employed full-time [employer] NUTRITION: average diet EXERCISE: regular walking SEXUAL ACTIVITY: not sexually active Heterosexual Problems Problem Type SNOMED Code ICD Code Onset Dates Problem Status W/U Status Risk Notes Problem Essential hypertension (63788101) Essential (primary) hypertension (I10) Active confirmed Problem Tachycardia (7873961) Tachycardia, unspecified (R00.0) Active confirmed Problem Menopausal symptom (60697128) Symptomatic menopausal or female climacteric states (627.2) Active confirmed Major Plan Of Treatment Pending Test Test Name Order Date MM Digital Mammo Screening 04/02/2017 Insurance Providers Payer Name Payer Address Payer Phone Subscriber Number Group Number Insured Name Patient Relationship to Insured Coverage Start Date Coverage End Date MEDICARE [address] [place], [place] [id number] [phone] [id number] MARQUISE MALDONADO Self - patient is the insured [facility] [place] [address] [phone] [id number] MARQUISE MALDONADO Self - patient is the insured Medical (General) History Medical History History ICD Code Menopausal and female climacteric states N95.1 Essential (primary) hypertension I10 Tachycardia, unspecified Surgical History Surgery Date(Month/Year) wisdom teeth extraction BTL
[2024-07-12 14:29] LABS: Cholesterol 233 mg/dL (<200); HDL Cholesterol 63 mg/dL (>40); LDL Cholesterol Calculated 145 mg/dL (<100); Triglycerides 127 mg/dL (<150)
[2024-07-12 14:44] LABS: TSH reflex Free T4 0.32 uIU/mL (0.32-4.0)
== END 2024-07-12 11:59 | disposition home or self-care (01) ==
LOC: HO.HMGCLDS 11:58
PROVIDERS: PCP Physician Assistant; Visit Provider Physician Assistant
DX: N28.9 Disorder of kidney and ureter, unspecified (principal); M85.80 Other specified disorders of bone density and structure, unspecified site; I10 Essential (primary) hypertension
CPT/HCPCS: 36415; 80061; 84443

== ENCOUNTER 2024-07-22 14:02 | Outpatient (AMB) | payer OTHER, MEDICARE, SELFPAY ==
--- NOTE | 2024-07-22 14:03 | MHC.PC.OV ---
Vital Signs 07/22/24 14:12 07/22/24 14:20 Height 5 ft 1 in Weight 128 lb 4 oz BMI 24.2 BP 148/84 H 138/86 Blood Pressure Location Lt brachial Lt brachial Position Sitting Sitting Respiration 14 Pulse 61 Pulse Oximetry (%) 99 Oxygen Delivery Method Room Air Intake Visit Reasons: bp, labs Intake Note: Htn and lab results. Allergies Sulfa (Sulfonamide Antibiotics) Allergy (Unknown, Verified 07/22/24 14:10) Unknown sulfamethoxazole [From Bactrim] Allergy (Unknown, Verified 07/22/24 14:10) Unknown trimethoprim [From Bactrim] Allergy (Unknown, Verified 07/22/24 14:10) Unknown Tobacco use date assessed: 04/07/24 Dental Screening Dental Screen Date: 09/04/23 HPI bp, labs HPI Details The patient is an 79-year-old female presenting today for a follow up. Psych: She presents with situational anxiety. The anxiety pertains to stress from her workplace environment, where she felt targeted and pressured due to her age, contributing to significant emotional distress. This resulted in her decision to discontinue work. Neuropsychiatric evaluation at [facility] showed no cognitive impairment. CV: Her blood pressure today in the office is 138/84. She has a history of hypertension, which is currently well-controlled with valsartan/hydrochlorothiazide, propranolol, and hydralazine. The patient also has hypercholesterolemia, which was untreated due to adverse effects, namely muscle aches from previous statin (does not want). Her LDL levels were reported at 145 mg/dL, elevated from the recommended levels. She manages her cholesterol through dietary modifications. Endo: The patient also has hypothyroidism and is currently stable on 75 micrograms of levothyroxine, with her recent thyroid function tests showing normal results. Rheum: Has a history of gout and is on allopurinol. Last uric acid was elevated. She was then increased on allopurinol to 400 mg. Follows with Rheumatology. Bone density- UTD, osteopenia 2023 mammo- done colonoscopy- done with these [facility] Medical History HTN (hypertension) Erosive (osteo)arthritis Multinodular thyroid Surgical History History of thyroidectomy (~07/14/23) History of surgery History of wisdom tooth extraction Family History Father Heart failure Mother Heart failure Gout Brother No problems noted. Brother No problems noted. Sister Breast cancer Asthma Sister No problems noted. Son No problems noted. Son No problems noted. Son No problems noted. Son No problems noted. 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 1. Little interest or pleasure in doing things: not at all 3. Trouble falling or staying asleep, or sleeping too much: not at all Source: Developed by Drs. Lalo Casey, Christina Brown, Dony Cobb and colleagues, with an educational viral from [employer]. Thrive Questionnaire Date Thrive assessed: 12/25/23 GASPER-7 AMB Questionnaire GASPER-7 Date GASPER - 7 assessed: 12/25/23 Source: Developed by Drs. Lalo Casey, Dony Hernandes and colleagues, with an educational viral from [employer]. Physical exam (Primary Care) Vital Signs: Last Vital Signs Pulse 61 07/22/24 14:12 Resp 14 07/22/24 14:12 BP 138/86 07/22/24 14:20 Pulse Ox 99 07/22/24 14:12 Oxygen Delivery Method Room Air 07/22/24 14:12 BMI result Body Mass Index 24.2 Tobacco/Smoking Status: Tobacco use Status Tobacco use date assessed 04/07/24 07/22/24 14:04 Patient Tobacco Use Status Never used Tobacco 07/22/24 14:04 e-Cigarette/Vaping Use Never Used 07/22/24 14:04 Thrive Assessment: Date of Thrive Assessment Date Thrive assessed 12/25/23 07/22/24 14:04 Const Orientation/consciousness: patient oriented x3 HENMT Ears: hearing grossly normal bilaterally Neck Thyroid: Thyroid normal Lymphatic: no lymphadenopathy noted Resp Auscultation: clear to auscultation bilaterally Cardio Rate: regular rate Rhythm: regular rhythm Heart sounds: S1 normal heart sound present and S2 normal heart sound present GI Inspection: Yes normal to inspection Palpation (GI): Soft to palpation and Other GI palpation findings present (nontender, no cva tenderness) Auscultation: normoactive bowel sounds Rectal Exam - Female: deferred Skin General skin exam: no rashes or lesions noted Neuro General: patient oriented x3, gait normal and no focal motor deficits Results Reviewed Results Reviewed: Laboratory Tests 01/07/24 04/30/24 07/12/24 08:03 14:15 12:04 WBC 7.1 RBC 4.34 Hgb 13.6 Hct 40.0 Plt Count 359 D Sodium 141 Potassium 3.7 Chloride 105 Carbon Dioxide 29 Anion Gap 11 L BUN 15 Creatinine 1.25 Estimated GFR 41 Uric Acid 7.4 H Calcium 9.5 Triglycerides 127 Cholesterol 233 H LDL Cholesterol, Calc 145 H HDL Cholesterol 63 TSH 0.32 MM/XR DEXA axial skeleton IMPRESSION: 1. DIAGNOSIS: Osteopenia based on the lowest T-score value of -1.7 in the femoral neck applying World Health Organization criteria. Coding Level of Care Code Est Pt Level 4 (01299) Complex EM visit Add On G2211 Diagnoses Situational anxiety F41.8 Hypothyroid E03.9 Hyperlipidemia E78.5 Essential hypertension I10 Assessment & Plan Assessment & Plan (1) Situational anxiety: Code(s): F41.8 - Other specified anxiety disorders Category: Medical Plan: Work letter provided. She is currently on long-term disability and unable to return to work given that it causes significant stress. (2) Hypothyroid: Code(s): E03.9 - Hypothyroidism, unspecified Category: Medical Plan: Currently well-controlled. Continue current regimen (3) Hyperlipidemia: Code(s): E78.5 - Hyperlipidemia, unspecified Category: Medical Plan: Diet controlled (4) Essential hypertension: Code(s): I10 - Essential (primary) hypertension Category: Medical Plan: Overall has been well-controlled. Continue current regimen. We will recheck in 6 months. Sooner if needed. Patient understands and agrees with the plan.
[2024-07-22 14:12] VITALS: BP 148/84; PULSE 61; RESP 14; O2SAT 99; BMI 24.2
[2024-07-22 14:20] VITALS: BP 138/86
--- OUTSIDE RECORDS SUMMARY | 2024-07-22 17:09 | XMS_ITS | Patient Health Record ---
Author Organization 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 NUTRITION: average diet EXERCISE: regular walking SEXUAL ACTIVITY: not sexually active Heterosexual Problems Problem Type SNOMED Code ICD Code Onset Dates Problem Status W/U Status Risk Notes Problem Essential hypertension (39167685) Essential (primary) hypertension (I10) Active confirmed Problem Tachycardia (1785027) Tachycardia, unspecified (R00.0) Active confirmed Problem Menopausal symptom (50340363) Symptomatic menopausal or female climacteric states (627.2) Active confirmed Major Plan Of Treatment Pending Test Test Name Order Date MM Digital Mammo Screening 04/02/2017 Insurance Providers Payer Name Payer Address Payer Phone Subscriber Number Group Number Insured Name Patient Relationship to Insured Coverage Start Date Coverage End Date MEDICARE [address] [place], [place] [id number] MARQUISE MALDONADO Self - patient is the insured [facility] [address] [place] [address] [phone] [id number] MARQUISE MALDONADO Self - patient is the insured Medical (General) History Medical History History ICD Code Menopausal and female climacteric states N95.1 Essential (primary) hypertension I10 Tachycardia, unspecified Surgical History Surgery Date(Month/Year) wisdom teeth extraction BTL
--- OUTSIDE RECORDS SUMMARY | 2024-07-22 17:09 | XMS_ITS | Data Portability ---
Author Organization [facility] [address] Address [address] [place] [address] Assessment No assessment recorded. Plan of Treatment Reminders Order Date Submit Date Provider Last Modified By Organization Details Last Modified Time Details Appointments None recorded. Lab None recorded. Referral None recorded. Procedures None recorded. Surgeries None recorded. Imaging None recorded. Medication Orders cephalexin 500 mg capsule 2022 023 [facility] #[id number], [address] [place], [address], 13:00:18 Patient TargetsNo targets recorded. Patient Instructions Encounter Date Encounter Id Patient Instructions Last Modified By Organization Details Last Modified Time 06/15/2022 [id number] cellulitis: care instructions [email or web address] Not available 06/15/2022 13:00:16 Reason for Referral None Reported. Problems Name Problem SNOMED Code Status Onset Date Resolution Date Notes Provider Name and Address Organization Details Recorded Time Hypertensive disorder 23575760 Active 2022 [facility] [...] Name and Address Organization Details Recorded Time 187685 Substance with sulfonami de structure and antibacte rial mechanism of action (substanc e) medicatio n nausea Not available Not available 06/15/2022 [id number] SNOMED [facility] [...] Updated DateTime 3 154.94 cm 22.1 kg/m2 47771.3 1 g 5 18 /min 99 % 99 % 64 /min 97.7 [degF] 121 mm[Hg] 74 mm[Hg] EAGLE [facility] 3 12:41:11 Social History Question Answer Notes LastModified by Organizat ion Details LastModified Time Tobacco Smoking Status Never Smoker [facility] 06/15/2022 12:39:57 What Is Your Level Of Alcohol Consumption? Occasional [email or web address] Information not available 06/15/2022 Do You Use Any Illicit Or Recreational Drugs? No Information not available 06/15/2022 Have You Recently Traveled Abroad? No [email or web address] Information not available 06/15/2022 Do You Or Have You Ever Used Any Other Forms Of Tobacco Or Nicotine? No [email or web address] Information not available 06/15/2022 Sex: Unknown Functional Status None recorded. Mental Status None recorded. Family History Relationship Description Onset Age of this Age Resolved Age Notes LastModified by Organization Details LastModified Time Father No current problems or disability [email or web address] Not available 06/15 12:39:43 Mother No current problems or disability [email or web address] Not available 06/15 12:39:43 Medical History No medical history recorded. Gynecological HistoryNo gynecological history recorded. Obstetrics History GPAL:G 0 P 0 0 0 0 Past Encounters Encounter ID Performer Location Encounter Start Date Encounter Closed Date Diagnosis/Indication Diagnosis SNOMED-CT Code Diagnosis ICD10 Code Diagnosis Note [id number] [address] [place] [address] 11/11/2017 09:42:14 11/11/2017 11:05:40 [id number] Song [facility] [address] [place] [address] 06/15/2022 12:11:02 06/15/2022 13:02:40 Cellulitis of lower leg [id number] L03.119 Rx cephalexin restelevat etylenol prn painTake [...] [place] Member ID Guarantor Name 11/11/2017 1 [facility] [id number] Joann Taylor [id number] Joann Taylor 11/11/2017 1 [place] [employer] Joann Taylor [id number] Joann Taylor 06/15/2022 1 [place] (MEDICARE [place]PLACEMENT PPO) [id number] Joann Taylor [id number] Joann Taylor Notes Date Note Type Note Provider Name and Address Organization Details Recorded Time 06/15/2022 text/html Foot/Ankle UCReported bypatient.Notes:77 yo femalec/o L footpainHas h/o bunionno trauma+ redness+ swelling+ warmthno rashno otc meds Song Marie, DO [address] [place], [address], [place] - [facility] 06/15/2022 13:01:32 OBGyn Episode No OBEpisode recorded.
== END 2024-07-22 14:33 | disposition home or self-care (01) ==
PROVIDERS: PCP Physician Assistant; Visit Provider Physician Assistant
DX: F41.8 Other specified anxiety disorders (principal); E03.9 Hypothyroidism, unspecified; E78.5 Hyperlipidemia, unspecified; I10 Essential (primary) hypertension

== ENCOUNTER → 2024-07-22 14:02 | Outpatient (BNVA) | payer OTHER, MEDICARE, SELFPAY | PROVIDERS: PCP Physician Assistant; Visit Provider Physician Assistant ==

== ENCOUNTER 2025-02-10 13:35 | Outpatient (AMB) | payer MEDICARE, SELFPAY ==
--- NOTE | 2025-02-10 13:44 | MHC.PC.OV ---
Vital Signs 02/10/25 13:48 Height 5 ft 1 in Weight 129 lb BMI 24.4 BP 126/80 Blood Pressure Location Rt brachial Position Sitting Respiration 14 Intake Visit Reasons: bp, thyroid Intake Note: Follow up. 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 Allergies Sulfa (Sulfonamide Antibiotics) Allergy (Unknown, Verified 02/10/25 13:46) Unknown sulfamethoxazole (From Bactrim) Allergy (Unknown, Verified 02/10/25 13:46) Unknown trimethoprim (From Bactrim) Allergy (Unknown, Verified 02/10/25 13:46) Unknown Tobacco use date assessed: 02/10/25 Fall risk assessment: No Falls in past year Last assessed Fall Risk: 02/10/25 Dental Screening Dental Screen Date: 02/10/25 Did you have a dental visit in the last 12 months?: No Did you have a dental problem in the last 6 months where you did not have access to dental care?: No Was dental information given to patient?: Patient has dentist HPI bp, thyroid HPI Details The patient is an 79-year-old female presenting today for a follow up. Psych: The anxiety pertains to stress from her workplace environment, where she felt targeted and pressured due to her age, contributing to significant emotional distress. This resulted in her decision to discontinue work. Neuropsychiatric evaluation at [facility] showed no cognitive impairment. She is doing well. CV: Her blood pressure today in the office is 126/80. She has a history of hypertension, which is currently well-controlled with valsartan/hydrochlorothiazide, propranolol, and hydralazine. The patient also has hypercholesterolemia, which was untreated due to adverse effects, namely muscle aches from previous statin (does not want). Her LDL levels were reported at 145 mg/dL, elevated from the recommended levels. She manages her cholesterol through dietary modifications. Endo: The patient also has hypothyroidism and is currently stable on 75 micrograms of levothyroxine, with her recent thyroid function tests showing normal results. Rheum: Has a history of gout and is on allopurinol. Follows with Rheumatology and is scheduled to 02/22. Bone density- UTD, osteopenia 2023 mammo- done colonoscopy- done with these [facility] Medical History HTN (hypertension) Erosive (osteo)arthritis Multinodular thyroid Surgical History History of thyroidectomy (~07/14/23) History of surgery History of wisdom tooth extraction Family History Father Heart failure Mother Heart failure Gout Brother No problems noted. Brother No problems noted. Sister Breast cancer Asthma Sister No problems noted. Son No problems noted. Son No problems noted. Son No problems noted. Son No problems noted. 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 How often do you have a drink containing alcohol?: Monthly or less 2. How many drinks containing alcohol do you have on a typical day when you are drinking?: 1 or 2 3. How often do you have six or more drinks on one occasion?: Never Total Score: 1 GASPER-7 AMB Questionnaire GASPER-7 Date GASPER - 7 assessed: 12/25/23 Source: Developed by Drs. Lalo Casey, Christina Brown, Dony Cobb and colleagues, with an educational viral from [employer]. Physical exam (Primary Care) Vital Signs: Last Vital Signs Resp 14 02/10/25 13:48 BP 126/80 02/10/25 13:48 BMI result Body Mass Index 24.4 Tobacco/Smoking Status: Tobacco use Status Tobacco use date assessed 02/10/25 02/10/25 13:54 Patient Tobacco Use Status Never used Tobacco 02/10/25 13:54 e-Cigarette/Vaping Use Never Used 02/10/25 13:54 Thrive Assessment: Date of Thrive Assessment Date Thrive assessed 12/25/23 02/10/25 13:45 Const Orientation/consciousness: patient oriented x3 HENMT Ears: hearing grossly normal bilaterally Neck Thyroid: Thyroid normal Lymphatic: no lymphadenopathy noted Resp Auscultation: clear to auscultation bilaterally Cardio Rate: regular rate Rhythm: regular rhythm Heart sounds: S1 normal heart sound present and S2 normal heart sound present GI Inspection: Yes normal to inspection Palpation (GI): Soft to palpation and Other GI palpation findings present (nontender, no cva tenderness) Auscultation: normoactive bowel sounds Rectal Exam - Female: deferred Skin General skin exam: no rashes or lesions noted Neuro General: patient oriented x3, gait normal and no focal motor deficits Coding Level of Care Code Est Pt Level 4 (31449) Complex EM visit Add On G2211 Diagnoses Essential hypertension I10 Hyperlipidemia E78.5 Situational anxiety F41.8 Hypothyroid E03.9 Assessment & Plan Assessment & Plan (1) Essential hypertension: Code(s): I10 - Essential (primary) hypertension Category: Medical Plan: Continue current regimen. Refills provided today (2) Hyperlipidemia: Code(s): E78.5 - Hyperlipidemia, unspecified Category: Medical Plan: Working on diet. Does not tolerate statins (3) Situational anxiety: Code(s): F41.8 - Other specified anxiety disorders Category: Medical Plan: Significantly improved since retiring (4) Hypothyroid: Code(s): E03.9 - Hypothyroidism, unspecified Category: Medical Plan: We will monitor and check TSH Plan Flu shot today Orders: Orders Complete Blood Count Auto Diff Today E03.9 - Hypothyroidism, unspecified, E78.5 - Hyperlipidemia, unspecified, F41.8 - Other specified anxiety disorders, I10 - Essential (primary) hypertension Lipid Panel Today E03.9 - Hypothyroidism, unspecified, E78.5 - Hyperlipidemia, unspecified, F41.8 - Other specified anxiety disorders, I10 - Essential (primary) hypertension TSH reflex Free T4 Today E03.9 - Hypothyroidism, unspecified, E78.5 - Hyperlipidemia, unspecified, F41.8 - Other specified anxiety disorders, I10 - Essential (primary) hypertension Comprehensive [place]. Panel Fast Today E03.9 - Hypothyroidism, unspecified, E78.5 - Hyperlipidemia, unspecified, F41.8 - Other specified anxiety disorders, I10 - Essential (primary) hypertension Hemoglobin A1c Today E03.9 - Hypothyroidism, unspecified, E78.5 - Hyperlipidemia, unspecified, F41.8 - Other specified anxiety disorders, I10 - Essential (primary) hypertension, R73.01 - Impaired fasting glucose UA CC w/rflx Micro + Cult Today E03.9 - Hypothyroidism, unspecified, E78.5 - Hyperlipidemia, unspecified, F41.8 - Other specified anxiety disorders, I10 - Essential (primary) hypertension, R30.0 - Dysuria
[2025-02-10 13:48] VITALS: BP 126/80; RESP 14; BMI 24.4
--- OUTSIDE RECORDS SUMMARY | 2025-02-10 18:09 | XMS_ITS | Patient Health Record ---
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 Phone MARTHA VALERA Primary Care Provider Rona Oleary Unavailable [phone] Reason For Referral No Information Medications Medication SIG (Take, Route, Frequency, Duration) Notes Start Date End Date Status VITAMIN D 50,000 IU ORAL Active Valsartan-hydroCHLOROthiaz naty 160-12.5 MG Orally Active Furosemide 1 ORAL daily; Durati on: -3 Craig-MJ 09/30/2012 Active Inderal LA 1 ORAL daily; Durati on: -3 Craig-MJ 09/30/2012 Active Social History Tobacco Use: Social History Observation Description Date Details (start date - stop date) Never Smoker NA - NA Tobacco Use/Smoking Question Answer Notes Are you a nonsmoker Section Notes: MARITAL STATUS: 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 NUTRITION: average diet EXERCISE: regular walking SEXUAL ACTIVITY: not sexually active Heterosexual MARITAL STATUS: 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 NUTRITION: average diet EXERCISE: regular walking SEXUAL ACTIVITY: not sexually active Heterosexual Problems Problem Type SNOMED Code ICD Code Onset Dates Problem Status W/U Status Risk Notes Problem Essential hypertension (22901375) Essential (primary) hypertension (I10) Active confirmed Problem Tachycardia (0639524) Tachycardia, unspecified (R00.0) Active confirmed Problem Menopausal symptom (37662356) Symptomatic menopausal or female climacteric states (627.2) Active confirmed Major Plan Of Treatment Pending Test Test Name Order Date MM Digital Mammo Screening 04/02/2017 Insurance Providers Payer Name Payer Address Payer Phone Subscriber Number Group Number Insured Name Patient Relationship to Insured Coverage Start Date Coverage End Date MEDICARE [address] [facility] [place] [id number] MARQUISE MALDONADO Self - patient is the insured [facility] [address] [place] [address] [phone] [id number] MARQUISE MALDONADO Self - patient is the insured Medical (General) History Medical History History ICD Code Menopausal and female climacteric states N95.1 Essential (primary) hypertension I10 Tachycardia, unspecified Surgical History Surgery Date(Month/Year) wisdom teeth extraction BTL
== END 2025-02-10 14:14 | disposition home or self-care (01) ==
LOC: HO.HMCFM 13:36
PROVIDERS: PCP Physician Assistant; Visit Provider Physician Assistant
DX: I10 Essential (primary) hypertension (principal); E78.5 Hyperlipidemia, unspecified; F41.8 Other specified anxiety disorders; E03.9 Hypothyroidism, unspecified

== ENCOUNTER → 2025-02-10 13:35 | Outpatient (BNVA) | payer MEDICARE, SELFPAY | PROVIDERS: PCP Physician Assistant; Visit Provider Physician Assistant | DX: I10 Essential (primary) hypertension (principal); E78.5 Hyperlipidemia, unspecified; F41.8 Other specified anxiety disorders; E03.9 Hypothyroidism, unspecified; M10.9 Gout, unspecified; Z79.899 Other long term (current) drug therapy | CPT/HCPCS: 99212 ==